=== PATIENT | male | born 1965 | race Caucasian/White ===

== ENCOUNTER 2016-04-29 11:54 | Inpatient (IN) | payer OTHER, MEDICARE ==
[~2016-04-29] VITALS: Ht 174 cm; Wt 181.4 kg
[~2016-04-29 11:54] MED LIST: ABILIFY MAINTE400 MG IM; ACIDOPHILUS1 EACH PO; AMBIEN10 M1 PO; ASPIRIN EC81 M1 PO; DEPAKOTE ER500 M1 PO; IBUPROFEN600 M1 PO; LISINOPRIL-HCT1 EAC2 PO; METFORMIN HCL750 M1 PO; PEPCID20 M1 PO; TOPAMAX100 M1 PO; VITAMIN D2000 UNIT PO; ZOLOFT100 M1 PO
--- NOTE | 2016-04-29 12:11 | NUR ---
Informed waiting has been performed.
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
--- NOTE | 2016-04-29 12:25 | NUR ---
SECURITY AT BEDSIDE FOR WANDING AND PT CHANGED INTO HOSPITAL GOWNS
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
--- NOTE | 2016-04-29 13:45 | NUR ---
DR ESCOBEDO AT BEDSIDE FOR EVAL
--- NOTE | 2016-04-29 14:51 | NUR ---
BLOOD DRAWN AND SENT TO THE LAB ([facility])
[2016-04-29 15:00] LABS: ABSOLUTE BASOPHIL COUNT 0 /CUMM (0.0-0.2); ABSOLUTE EOSINOPHIL COUNT 0.2 /CUMM (0.0-0.7); ABSOLUTE GRANULOCYTE CT 5.2 /CUMM (1.4-6.5); ABSOLUTE LYMPH COUNT 2.5 /CUMM (1.2-3.4); ABSOLUTE MONOCYTE COUNT 0.8 /CUMM (0.10-0.60); BASOPHIL % 0.6 % (0.0-2.0); EOSINOPHIL % 1.9 % (0-5); GRANULOCYTE % 59.6 % (42.2-75.2); HEMATOCRIT 41.7 % (42-52); MEAN CORPUSCULAR HGB 28.6 PG (27.0-31.0); MEAN PLATELET VOLUME 7.5 FL (7.4-10.4); PLATELET COUNT 205 /CUMM (130-400); RBC DISTRIBUTION WIDTH 14.4 % (11.5-14.5); RED BLOOD CELL CT 4.96 /CUMM (4.70-6.10); WHITE BLOOD CELL COUNT 8.7 /CUMM (4.8-10.8)
--- NOTE | 2016-04-29 15:00 | NUR ---
PT CALM AND COOPERATIVE IN ROOM 15. PT REPORTS HE IS STILL HEARING THE VOICES. ADVISED PT I CALLED AND ORDERED HIM A MEAL FROM DIETARY.
--- NOTE | 2016-04-29 15:40 | NUR ---
PT EATING LUNCH TRAY.
--- NOTE | 2016-04-29 16:25 | NUR ---
CRISIS AT BEDSIDE FOR EVAL
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
[2016-04-29 18:05] VITALS: BP 155/87
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
[2016-04-29 19:36] VITALS: BP 140/88
[2016-04-29] MEDS ORDERED: NYSTATIN15 G1 EXT (20:20)
[2016-04-29] MEDS ORDERED: LEVOTHYROXINE75 MCG PO (20:23)
[2016-04-29] MEDS ORDERED: FLOMAX0.4 M1 PO (20:26)
[2016-04-29] MEDS ORDERED: ABILIFY30 M1 PO (20:27)
[2016-04-29] MEDS ORDERED: METFORMIN HCL500 M2 PO (20:29)
[2016-04-29] MEDS ORDERED: DEPAKOTE ER500 M1 PO (20:30)
[2016-04-29] MEDS ORDERED: ZOLOFT100 M1 PO (20:32)
--- NOTE | 2016-04-29 21:46 | NUR ---
Pt mood is stable affect is flat, pt walks around the unit gait is stable. Compliant and cooperative with the staff. Vital signs are stable no behavioral issues noted. Will continue to monitor the pt overnight.
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
[2016-04-30 07:30] VITALS: BP 130/90
--- NOTE | 2016-04-30 09:27 | CPS MD/APRN INITIAL ASSE PSYCH ---
Psychiatric Admission Manager Of Disaster Recovery's Note Reviewed: Yes Patient Seen and Examined: Yes Identifying Information: Pt is a 51-year-old male, morbidly obese. Chief Complaint: Patient presented at [facility] with reports of hearing voices telling him to hurt/kill others. Reaction to Hospitalization: Calm and cooperative. He states he's feeling better since he arrived here. Feeling somewhat tired today. "I guess I like to sleep." History of Present Illness Onset of Illness: Chronic. This is the patient's 14th [facility] admission since 2000. Circumstances Leading to Admission: Patient presented at [facility] ED with reports of hearing voices telling him to hurt/kill others. Pt has a long hx of inpatient psychiatric treatment and has prior diagnosis of schizoaffective d/o. Pt was last inpatient at [facility] in Jan 2016 and [facility] August 2015. Pt reports he always hears voices but woke up this morning with voices telling him to hurt his field nurse case manager and visiting nurse. Pt reports voices were overwhelming "I thought I would actually do it". Pt reports similiar voices 2 weeks ago. He reports being scared that the thoughts are becoming an obsession "like I have to do it for them to stop-I'm very scared". Problem(s) Justifying Need for Admission: Suicidal and homicidal ideation, command auditory hallucinations. Past Psychiatric History Past Diagnosis(es)- if any: Schizoaffective Disorder; MRE Depressed with psychotic features (AH) Hypothyroidism; hx Type II Diabetes Morbid Obesity(400 lbs.) Past Precipitating Factors- if any: Patient reports hearing voices "constantly." Reports paranoia, especially when he rides on the bus. States "I feel that people are against me. I get angry at people for no reason." - Include inpatient and outpatient treatment Treatment History: This is the patient's th [facility] inpatient psychiatric stay since 2000. Hospitalizations at [facility] in the past. History of Suicide Attempts or Gestures Patient reports that he has tried to overdose on 1 bottle of aspirin, 3 times in his life. Last time was this past December, when he was hospitalized at [facility]. Substance Abuse History: Patient reports that when he was in his early 20s, he abused alcohol, cocaine, marijuana, and other drugs. Used LSD once. States he has been abstinent of alcohol and illicit drugs for the past 20 years. Allergies: Coded Allergies: bupropion (From WELLBUTRIN) (Severe, UNKNOWN PER PT 04/29/16) haloperidol (From HALDOL) (UNKNOWN PER PT 04/29/16) lithium (?ALLERGY 04/29/16) Home Med List: Abilify 30 mg daily. Depakote ER 2000 mg at bedtime. Tamsulosin 0.4 mg daily Sertraline 200 mg daily Metformin 500 mg twice daily Levothyroxine 0.075 mg daily Vitamin D 2000 international units daily Aspirin 81 mg daily Pepcid 20 mg twice daily - Include any medical condition(s) that may - impact the patient's recovery/remission Past History Medical History Neurological: migraine EENT: NO TEETH, NO DENTURES Cardiovascular: hypertension Respiratory: NONE Gastrointestinal: NONE Hepatic: NONE Renal: NONE Musculoskeletal: ARTHRITIS HEEL SPUR Psychiatric: anxiety, chronic pain disorder, depression, psychosis (command auditory hallucination), schizo affective disorder Endocrine: PRE-DIABETIC (on oral hypoglycemic regimen) Blood Disorders: NONE Cancer(s): NONE FRENCH LECTURER/Reproductive: NONE Other Medical Hx: no History of MRSA: No History of VRE: No History of CDIFF: No Influenza Vaccine: 04/29/16 Surgical History Surgical History: none Psychiatric Family/Social Hx Family History Psychiatric Illness: He has 3 brothers and 2 sisters, states they all suffer from depression. Substance Use: Denies Suicides: Denies Social History Living Situation: Lives in a fdc in [facility] Significant Relationships (family/friends): His sister, Fabiana Queen and his brother Angel. Both live in [place]. Education: GED. 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 Currently unemployed. Legal: Denies Healthly Behaviors Screening Tobacco Screening Tobacco Use from ED Docu: Never used - If tobacco counseling indicated - the following topics are required. - #1 Recognizing dangerous situations. - #2 Coping Skills. - #3 Basic information about quitting. Status of Tobacco Cessation Counseling: N/A B/C NO TOB USE Cessation Med Status: No Tobacco Use last 30d Alcohol Screening - ETOH screen POS if BAL >=80 or Audit-C>= M4/F3 Audit-C Score from Diag Assess: 0 Blood Alcohol Level: Laboratory Tests 04/29 1449 Toxicology Serum Alcohol (<10 MG/DL) < 10.0 Alcohol Use Screening Results: Neg per Audit C &/or BAL - If ETOH counseling indicated - the following topics are required. - #1 Express concern about the patient's - drinking at unhealthy levels, include informing - of national norms for moderate drinking: - men <= 14 drinks/week, max 4 drinks/occasion - women <= 7 drinks/week, max 3 drinks/occasion - #2 Providing feedback, including linking alcohol to - negative physical effects (liver injury, hypertension) - negative emotional effects (relationship problems and - depression) - negative occupational consequences (reduced work - performance) - #3 Advising the patient to abstain from alcohol or - to drink below national norms for moderate drinking - (as listed above). Status of ETOH Use Counseling: N/A B/C NO ETOH Use Metabolic Screening - Screen if on a Neuroleptic Medication - Metabolic screening should include: - Blood Pressure, BMI, Glucose or Hgb A1c, & a - Lipid profile from within the past 365 days. Metabolic Screening () Not Applicable, patient not on a neuroleptic. OR ([x]) Patient on a neuroleptic(s) . Enter below results for Glucose or Hemoglobin A1C, and lipid panel if obtained during the last 365 days. BMI: 59.900 Blood Pressure: 132/92 Laboratory Results (If applicable): Lab Cholesterol 197 MG/DL 04/30/16 0626 Cholesterol/HDL Ratio 4 % 04/30/16 06 HDL Cholesterol 54 mg/dL 04/30/16 0626 Hemoglobin A1c 7.3 % H 04/30/16 06 LDL Cholesterol, Calc 88 mg/dL 04/30/16 06 Triglycerides 276 mg/dL H 04/30/16 06 Exam and Plan Mental Status Examination Ambulation Status: Patient ambulates slowly, with a steady gait. Appearance: Morbidly obese. Well-groomed and appropriately dressed. Attitude towards examiner: Calm and cooperative Psychomotor activity: Within normal limits Behavior: Calm and cooperative Quality of speech: Speech is well articulated, goal-directed, average in rate, quiet in volume and tone. Affect: Congruent Mood: Depressed Suicidal Ideation: Denies at this time. Homicidal Ideation: Denies at this time, however was hearing voices telling him to kill or hurt others, which is the reason he brought himself to the hospital. Hallucinations: Patient reports command auditory hallucinations. Paranoid/Delusional Material: Patient reports paranoid thoughts, at times feeling that people are against him, he then gets angry at people for no reason. Difficulties with thought organization: Patient speaks in a clear and logical manner. Insight: Fair Judgment: Fair Orientation: Alert and oriented to person, place and time. Cognition: Within normal limits Memory Function: Within normal limits Estimate of intellectual functioning: Average Assets/Strengths Patient Identified Assets/Strengths: Patient reports that he is spiritual, generous, loving and caring. "I like to listen to other people." Impression/Plan Impression and Plan: This is a 51-year-old morbidly obese male, with an extensive psychiatric history , being seen outpatient at [facility], currently living in a supervised fdc. He has had numerous inpatient psychiatric stays both here and at other hospitals. He reports command auditory hallucinations, telling him to harm or even kill other people. He also reports occasional suicidal ideation, and has had at least 3 suicide attempts in the past. During our visit today he was calm, cooperative and pleasant. At this time due to his continuing command auditory hallucinations, we will discontinue Abilify, as it seems that it is no longer helpful for his psychotic symptoms. We will start perphenazine 8 mg twice daily. Patient verbalized consent, and verbalizes understanding of the risks, benefits and side effects of this medication including akathisia, possible dystonic reactions including irreversible involuntary muscle movements. Depakote level on Thursday morning. Also add Cogentin 1mg BID. - Include all active medical diagnosis that require tx DSM 5 Diagnosis(es): Schizoaffective Disorder; MRE Depressed with psychotic features (AH) - Initial Tx Plan for Active Psych & Medical Conditions Treatment Plan: PLAN: The patient will be monitored on the unit for safety, mood stability, command auditory hallucinations, suicidal and homicidal ideation. Additional information is needed from collaterals, including his brother and sister. Anticipate once clinically stable, that the patient will be discharged to home and family and be referred to [facility]. - Factors that would help patient function - in a less restrictive setting. Factors: Resolution of suicidal and homicidal ideation, alleviation of auditory hallucinations.
--- NOTE | 2016-04-30 10:25 | SOCIAL WORKER SOCIAL HX PSYCH ---
Social History Basic Assessment Insurance Authorization: Insurance #1: Insurance name: MEDICARE A [employer] Phone number: Policy number: [id number] Group number: Authorization number: Curr Source of Income/Entitlements: SSDI Primary Care Physician: Patient's PCP: TEMITOPE PATINO MD PCP's Present Problem: Met with Chon this morning, he was in group this morning, and willingly came with me to talk further. Chon is a 51yo single, disabled male admitted to [facility] due to hearing voices to harm 2 women. Chon denied hearing any voices today, no visual hallucinations, denied SI/HI, command hallucinations. He stated he heard the voice the other day, as he was waking up in the morning telling him to harm 2 women he knows. He stated he did not want to harm the women, so he came to [place]. Chon stated "I don't want to tell you who these women were, then you will have to inform them." Chon affect was flat he seemed to engage easily. He reports having 48 psychiatric hospitalizations in his lifetime. He stated he lives in a senior living setting, and is fine living there. He stated "I'm used to it." He did not identify any recent stressors or conflicts contributing to his exacerbation of symptoms. Chon did report he had an opportunity to move into another living situation, but recently decided not to move. He was going to move into "[facility]" in [place], [place] a "born again holiness" facility for men. Chon stated his therapist and he went to visit the facility and he liked it, but had misgivings about it because the facility/program is Roman Catholic based. Chon stated he is currently Jainism, but has been other religions too. Chon stated his spirituality "helps me alot", and that he "reads alot of books." His supports are his sister, Fabiana Queen (lives in [place]), his 77yo Father (who Chon stated is currently at [place] on medical floor), and his 2 male friends. Chon recieves therapy at [facility] - with Dr. Hector and therapist, Taylor Peterson, [facility] , or [phone]. His case filler for his current housing [facility] [place]. Also, he receives visiting nurse services with [facility]. Primary Language? Citizen [place] Language(s) Spoken At Home: Citizen [place] Living Situation Rents or Owns Home? rents Residential Care/Treatment Fac senior living Feel Safe Where You Are Living Yes Feel Safe in Relationships? Yes Comments: Pt. did have toughts of harming 2 women - would not disclose their names. PEr ED note it is case filler and visiting nurse. Allergies - Coded Allergies: bupropion (From WELLBUTRIN) (Severe, UNKNOWN PER PT 04/29/16) haloperidol (From HALDOL) (UNKNOWN PER PT 04/29/16) lithium (?ALLERGY 04/29/16) Current Medications - Scheduled Medications Aripiprazole (Abilify) 30 MG TABLET 30 MG PO DAILY ANTI-PSYCHOTIC (Reported) Entered as Reported by OLGA COMBS on 04/29/162026 Aspirin (Ecotrin*) 81 MG TABLET.DR 1 TAB PO DAILY HEART/BLOOD (Reported) Entered as Reported by MARGARET MENA on 06/19/151738 Last Taken: 04/29/16 Cholecalciferol (Vitamin D3) (Vitamin D) 2,000 UNIT CAPSULE 1 CAP PO DAILY SUPPLEMENT (Reported) Entered as Reported by MARGARET MENA on 06/19/151741 Last Taken: 04/29/16 Divalproex Sodium (Depakote ER) 500 MG TAB.ER.24H 2,000 MG PO PM MOOD STABILITY (Reported) Entered as Reported by OLGA COMBS on 04/29/162029 Famotidine (Pepcid) 20 MG TABLET 1 TAB PO BID GI (Reported) Entered as Reported by MARGARET MENA on 06/19/151739 Last Taken: 04/29/16 Lactobacillus Acidophilus (Acidophilus) 1 EACH CAPSULE 1 CAP PO DAILY PROBIOTIC (Reported) Entered as Reported by MARGARET MENA on 06/19/151742 Last Taken: 04/29/16 Levothyroxine Sodium 75 MCG TABLET 75 MCG PO DAILY THYROID PROBLEMS (Reported ) Entered as Reported by OLGA COMBS on 04/29/162022 Lisinopril/Hydrochlorothiazide (Lisinopril-Hctz 10-12.5 MG Tab) 1 EACH TABLET 1 TAB PO DAILY BP (Reported) Entered as Reported by MARGARET MENA on 06/19/15 1741 Last Taken: Unknown Dose on 04/29/16 Nystatin 100,000 UNIT/GRAM CREAM..G. 100,000 GM EXT BID FUNGAL RASH (Reported ) Entered as Reported by OLGA COMBS on 04/29/162019 Sertraline HCl (Zoloft) 100 MG TABLET 200 MG PO DAILY DEPRESSION (Reported) Entered as Reported by OLGA COMBS on 04/29/162031 Tamsulosin HCl (Flomax) 0.4 MG CAP.ER.24H 0.4 MG PO DAILY MUSCLE RELAXANT ( Reported) Entered as Reported by OLGA COMBS on 04/29/162025 Scheduled PRN Medications Metformin HCl (Metformin HCl ER) 500 MG TAB.ER.24 500 MG PO BID PRN BLOOD SUGAR (Reported) Entered as Reported by OLGA COMBS on 04/29/162028 Past History Past Medical History Neurological: migraine EENT: NO TEETH, NO DENTURES Cardiovascular: hypertension Respiratory: NONE Gastrointestinal: NONE Hepatic: NONE Renal: NONE Musculoskeletal: ARTHRITIS HEEL SPUR Psychiatric: anxiety, chronic pain disorder, depression, psychosis (command auditory hallucination), schizo affective disorder Endocrine: PRE-DIABETIC (on oral hypoglycemic regimen) Blood Disorders: NONE Cancer(s): NONE 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 No Mother's Age (Current/): 57 Relationship w/Mother: Mother 57yo in 2000 from multiple surgeries hernia, had infection. Had good relationship with Mother. Father's Age (Current/): 77 Relationship w/Father: Father is 77yo, close with Father. Any Sibling(s)? Yes Sibling's Gender(s)/Age(s): male Sibling 1:, male Sibling 2:, male Sibling 3:, female Sibling 4: Relationship w/Sibling(s): Reports close with siblings, sister lives in [place] talk to her on the phone daily (Fabiana Queen) Relationship w/Friends: Has 2 good friends, Adam and Orlando. Supportive latter day community Family Psych/Sub Abuse/Add Hx: None reported Abuse/Trauma History Trauma History/Current Trauma: Denies Legal History Legal Guardian/Address/Phone: Self Current Legal Status: none Have you ever been arrested No Number of Arrests: 0 Hx of Juvenile Legal Charges? Yes Hx of Adult Legal Charges? Yes List/Date Most Recent Lgl Chgs: 1990s - destruction of property Chgs/Dts/Incarcerations/Sentnc Denies Civil Proceedings: Denies Domestic Relations Court: Denies Child Protective Serv Involvmnt Denies Psychosocial History Primary Support System: father, sibling(s), friend Strengths/Capabilities: Supportive family Able to articulate needs/wants Asking for help Connected to outpatient treatment Weaknesses: Reported hearing command auditory hallucinations, chronic medical, chronic mental illness. Physical Limitations (Interventions): Morbid obesity Last Physical: 2 months ago History of Seizures? No History of Blackouts? No ADL Limitations: Reported 'i eat too much, I fall asleep eating at night." Liberty/Social/Peer Relations Supportive family and latter day community Meaningful Activities: Music, family, latter day Childhood Rastafarian: I am a spiritual person I believe in God, recently Baptised Jainism, has been various religions. Current Muslim Affiliation: Jainism Is Spirituality Important to You? Yes Patient's Ethnicity: Pashto Cultural/Ethnic Issues: Denies Are There Developmental Issues? No Milestones Achieved: fine motor, gross motor Psychiatric Treatment History Psych Treatment Inpatient Treatment Yes Outpatient Treatment Yes Location of Treatment [facility] x2 past yr; [facility] 2x past yr. outpt [facility] Reason for Treatment Schizophrenia Hx of SI/HI Dates of Treatment chronic mental jean tx. Several [facility] admissions since 2000. Response to Treatment chronic AH but is med compliant and engaged in outpatient tx. 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[facility] Prior Episodes: See above Diagnosis: Schizoaffective d/o, depressed type Psychodynamic Issues: Chronic mental illness, medical issues, auditory command hallucinations Risk Factors: chronic/serious med cond., high anxiety/distress, history of Violence, history of suicide atmpts, SA/MH hospitalized, poor impulse control, male Substance Use/Abuse History Drug Use/Abuse Substance Used/Abused No History Substance Abuse Treatment Substance Abuse Treatment Inpatient Treatment No Sexual History Sexually Active No Sexual Orientation Bisexual Education History Highest Level of Education: high school/GED Highest Grade Completed: 12 Preferred Learning Style: visual, auditory, experiential HX of Learning Difficulties: None reported Barriers to Learning: None reported Special Communication Needs: None reported Employment History Employment Disability Not in Labor Force: Disabled Comments: Disabled since 1998 History Have You Been in The ? No Current Mental Status Problem List: 1. Schizoaffective disorder Mental Status Orientation: Person, Place, Situation Affect: Anxious, Flat Speech: WNL Neuro-vegetative: Concentration Poor, Energy Decreased, Sleep Disturbance Appearance Appearance- Dress/Hygiene: hospital gown; sitting up in bed with feet on the floor. flat affect. good eye contact. Behaviors Thought Process: WNL Thought Content: Auditory Hallucinations, Delusions, Obsessions, Paranoid Memory: WNL Insight: Fair SI/HI Risk Assessment Past Suicidal Ideation/Attempts Yes Current Suicidal Ideation/Att No Past Homicidal Ideation/Att: Yes Current Homicidal Ideation/Attempts Yes Degree of Intent: Thoughts/No Intent Danger To: Others, Self Gravely Disabled: Poor Impulse Control, Poor Judgment Risk Factors: Chronic/serious med cond, High Anxiety/Distress, SA/MH Hospitalization(s), Male Lethality Ratin - Conclusion and Recommendations for treatment - and discharge planning
[2016-04-30 12:31] VITALS: BP 132/92
--- NOTE | 2016-04-30 12:42 | NUR ---
PT VISIBLE IN THE [facility]LEU TODAY. HE SEEMS TO BE ADJUSTING WELL TO THE MILEU, FOLLOWING THE RULES OF THE UNIT. IN THE MILIEU PT HAS BEEN ATTENDING GROUPS, BUT HAS MINIMAL INTERACTIONS WITH HIS PEERS. PT DENIES THOUGHTS TO HURT HIMSELF WHEN ASKED.
--- NOTE | 2016-04-30 15:48 | History & Physical ---
General Information and HPI MD Statement: I have seen and personally examined DORY ANDREA and documented this H&P. The patient is a 51 year old M who presented with a patient stated chief complaint of "hearing voices, that may kill someone". Source of Information: patient Exam Limitations: no limitations History of Present Illness: 51-year-old obese male with history of schizoaffective disorder, last admission to a Hospital Was in January 2016 he was still here in the voices all of a sudden the night before admission the voices started to having him to hurt this woman for keeled them. That scares him and he is afraid but he might do. He states he is taking on his medication for all these reasons is admitted for evaluation and treatment Allergies/Medications Allergies: Coded Allergies: bupropion (From WELLBUTRIN) (Severe, UNKNOWN PER PT 04/29/16) haloperidol (From HALDOL) (UNKNOWN PER PT 04/29/16) lithium (?ALLERGY 04/29/16) Home Med list Aripiprazole (Abilify) 30 MG TABLET 30 MG PO DAILY ANTI-PSYCHOTIC (Reported) Aspirin (Ecotrin*) 81 MG TABLET.DR 1 TAB PO DAILY HEART/BLOOD (Reported) Cholecalciferol (Vitamin D3) (Vitamin D) 2,000 UNIT CAPSULE 1 CAP PO DAILY SUPPLEMENT (Reported) Divalproex Sodium (Depakote ER) 500 MG TAB.ER.24H 2,000 MG PO PM MOOD STABILITY (Reported) Famotidine (Pepcid) 20 MG TABLET 1 TAB PO BID GI (Reported) Lactobacillus Acidophilus (Acidophilus) 1 EACH CAPSULE 1 CAP PO DAILY PROBIOTIC (Reported) Levothyroxine Sodium 75 MCG TABLET 75 MCG PO DAILY THYROID PROBLEMS (Reported ) Lisinopril/Hydrochlorothiazide (Lisinopril-Hctz 10-12.5 MG Tab) 1 EACH TABLET 1 TAB PO DAILY BP (Reported) Metformin HCl (Metformin HCl ER) 500 MG TAB.ER.24 500 MG PO BID PRN BLOOD SUGAR (Reported) Nystatin 100,000 UNIT/GRAM CREAM..G. 100,000 GM EXT BID FUNGAL RASH (Reported ) Sertraline HCl (Zoloft) 100 MG TABLET 200 MG PO DAILY DEPRESSION (Reported) Tamsulosin HCl (Flomax) 0.4 MG CAP.ER.24H 0.4 MG PO DAILY MUSCLE RELAXANT ( Reported) Compliance With Home Meds: GOOD Past History Travel History Traveled to [place] past 21 day No Medical History Neurological: migraine EENT: NO TEETH, NO DENTURES Cardiovascular: hypertension Respiratory: NONE Gastrointestinal: NONE Hepatic: NONE Renal: NONE Musculoskeletal: ARTHRITIS HEEL SPUR Psychiatric: anxiety, chronic pain disorder, depression, psychosis (command auditory hallucination), schizo affective disorder Endocrine: PRE-DIABETIC (on oral hypoglycemic regimen) Blood Disorders: NONE Cancer(s): NONE 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 Home Primary Language: Korean ETOH Use: denies use Illicit Drug Use: denies illicit drug use Functional Ability ADLs Independent: dressing, eating, toileting, bathing. Ambulation: independent IADLs Independent: shopping, housework, finances, food prep, telephone, transportation , medication admin. Review of Systems Review of Systems Constitutional: Reports: see HPI. Exam & Diagnostic Data Last 24 Hrs of Vital Signs/I&O Vital Signs Date Time Temp Pulse Resp B/P Pulse O2 O2 Flow FiO2 Ox Delivery Rate 04/30 1231 92 132/92 04/30 0812 82 130/90 04/30 0730 96.4 82 130/90 04/29 1936 97.8 72 140/88 04/29 1805 96.3 86 155/87 04/29 1734 98.2 90 16 154/84 98 Room Air Intake & Output 04/30 1600 04/30 0800 04/30 0000 Intake Total Output Total Balance Patient 400 lb Weight Physical Exam General Appearance Alert, Oriented X3, Cooperative, No Acute Distress Skin No Rashes HEENT Atraumatic, PERRLA, EOMI, Mucous Membr. moist/pink Neck Supple, No JVD, No thryomegaly, +2 Carotid Pulse wo Bruit, No LAD Lymphatic Axillary nl, Cervical nl Cardiovascular Regular Rate Lungs decreased breath sounds Abdomen Normal Bowel Sounds, Soft, No Tenderness, obese Neurological Exam Findings: walking much better than on his last admission Cranial Nerves II through XII: Intact Last 24 Hrs of Labs/Oscar: Laboratory Tests 04/30/16 0626: Hemoglobin A1c 7.3 H, Total Bilirubin 0.4, Direct Bilirubin 0.4, AST 34, ALT 50 , Alkaline Phosphatase 84, Total Protein 7.2, Albumin 4.1, Triglycerides 276 H, Cholesterol 197, LDL Cholesterol, Calc 88, HDL Cholesterol 54, Cholesterol/HDL Ratio 4, Valproic Acid 44.1 L Assessment/Plan As Ranked By This Provider Problem List: 1. Suicidal ideation 2. Schizophrenia 3. Diabetes Miscellaneous Miscellaneous Documentation Attending Case Discussed With: BERTHA KERNS MD Primary Care Physician: TEMITOPE PATINO MD Patient sees these Specialists Psychiatry Level of Patient Care: ANUEL López Consults Needed: Consulting Specialty: Psychiatry Consulting Physician: Reason for Consult: suicidal ideations and auditory hallucinations
[2016-04-30 16:02] VITALS: BP 142/86
--- NOTE | 2016-04-30 17:11 | SOCIAL WORKER PROG NOTE PSYCH ---
Social Work Progress Note Progress Note Met with Chon this morning, he was in group this morning, and willingly came with me to talk further. Chon is a 51yo single, disabled male admitted to [facility] due to hearing voices to harm 2 women. Chon denied hearing any voices today, no visual hallucinations, denied SI/HI, command hallucinations. He stated he heard the voice the other day, as he was waking up in the morning telling him to harm 2 women he knows. He stated he did not want to harm the women, so he came to [place]. Chon stated "I don't want to tell you who these women were, then you will have to inform them." Chon affect was flat he seemed to engage easily. He reports having 48 psychiatric hospitalizations in his lifetime. He stated he lives in a half-way setting, and is fine living there. He stated "I'm used to it." He did not identify any recent stressors or conflicts contributing to his exacerbation of symptoms. Chon did report he had an opportunity to move into another living situation, but recently decided not to move. He was going to move into "[facility]" in [place], [place] a "born again moravian" facility for men. Chon stated his therapist and he went to visit the facility and he liked it, but had misgivings about it because the facility/program is Mandaen based. Chon stated he is currently Mandaen, but has been other religions too. Chon stated his spirituality "helps me alot", and that he "reads alot of books." His supports are his sister, Fabiana Queen (lives in [place]), his 77yo Father (who Chon stated is currently at [place] on medical floor), and his 2 male friends. Chon recieves therapy at [facility] - with Dr. Hector and therapist, Taylor Peterson, [facility] , or [phone]. His case supervisor for his current housing is [facility]. Also, he receives visiting nurse services with [facility].
[2016-04-30 19:43] VITALS: BP 142/90
--- NOTE | 2016-04-30 21:33 | NUR ---
PT APPEARED VISIBLE IN MILIEU DURING SHIFT, THOUGH DID SPEND A DECENT PERIOD OF TIME ISOLATING IN PT ROOM. PT IS WOTHDRAWN, MOSTLY STAYING TO SELF, WITH LIMITED INTERACTION WITH STAFF/PEERS. EARLIER IN EVENING PT BECAME DISGRUNTLED, BELIEVING STAFF NOT TO BE LOOKING OUT FOR HIS BEST INTERESTS AND BLAMING STAFF FOR ATTEMPTING TO ANGER HIM. PT WAS CONFRONTED BY SECURITY AND CHARGE NURSE, GIVEN A PRN, WHICH SEEMED TO CALM HIM. FOLLOWING THIS EVENT PT APPEARED MORE CALM AND COOPERATIVE WITH STAFF/PEERS. PT PRESENTS WITH WHAT APPEARS TO BE DELUSIONAL THINKING, AND BECOMES HIGHLY ANXIOUS DUE TO THOUGHTS. MOOD HAS BEEN STABLE, AFFECT IS FLAT/CONSTRICTED, COMMUNICATION IS NORMAL THOUGH SPARSE, AND APPETITE IS NORMAL. PT DENIES SI AT THIS TIME.
--- NOTE | 2016-05-01 06:50 | NUR ---
PATIENT SLEPT ALL NIGHT.
[2016-05-01 08:46] VITALS: BP 146/94
--- NOTE | 2016-05-01 12:54 | NUR ---
PT WAS VISIBLE IN THE MILIEU TODAY. PT SHARED IN PLANNING MEETING THAT HE WAS FEELING SAD AND ANXIOUS BUT DID NOT GO INTO DETAIL. HE WAS ENCOURAGED TO ATTEND GROUPS, WHICH HE HAS BEEN DOING. PT HAS MINIMAL INTERACTIONS WITH HIS PEERS BUT HAS BEEN COOPERATIVE WITH STAFF DIRECTION. WHEN ASKED PT DENIES THOUGHTS OF HURTING SELF.
--- NOTE | 2016-05-01 13:43 | CP SOUTH PROGRESS NOTE PSYCH ---
Psych (Inpt) Progress Note Progress Note Progress Note: I discussed this patient's progress to date, current mental status, treatment process in the context of the treatment plan, and discharge planning with staff/ team in the daily morning inpatient team meeting. I also met with the patient myself in individual session. A total of 15 minutes was spent with the patient with more than 50% spent in counseling and/or coordination of care. OBJECTIVE: Current Medications Sig/Pramod Start time Last Medication Dose Route Stop Time Status Admin Aripiprazole 30 MG DAILY 04/30 1000 DC 04/30 PO 0812 Aspirin Buffered 81 MG DAILY 04/30 1000 AC 05/01 PO 0955 Benztropine Mesylate 1 MG 08,04/30 AC 05/01 PO 0955 Cholecalciferol 2,000 IU DAILY 04/30 1000 AC 05/01 PO 0955 Diphenhydramine HCl 50 MG ONCE ONE 04/30 1630 DC 04/30 PO 04/30 1631 1630 Divalproex Sodium 2,000 MG QPM 04/29 2315 AC 04/30 PO 2125 Famotidine 20 MG BID 04/29 2311 AC 05/01 PO 0955 Haloperidol 5 MG ONCE ONE 04/30 1630 CAN PO 04/30 1631 Lactobacillus 1 CAP DAILY 04/30 1000 AC 05/01 Acidophilus PO 0955 Levothyroxine Sodium 0.075 MG DAILY AC 04/30 0700 AC 05/01 PO 0709 Lorazepam 2 MG ONCE ONE 04/30 1630 DC 04/30 PO 04/30 1631 1630 Metformin HCl 500 MG 0800,1700 04/30 0800 AC 05/01 PO 0955 Nystatin 1 BRIDGETT BID 04/30 1000 AC TOP Perphenazine 8 MG 0800 05/02 0800 AC PO Perphenazine 16 MG AT BEDTIME 05/01 2200 AC PO Perphenazine 12 MG 08,05/01 2000 CAN PO Perphenazine 4 MG ONCE ONE 05/01 1045 CAN PO 05/01 1046 Perphenazine 8 MG 0800,04/30 DC 05/01 PO 0955 Sertraline HCl 200 MG DAILY 04/30 1000 AC 05/01 PO 0955 Tamsulosin HCl 0.4 MG DAILY 04/30 1000 AC 05/01 PO 0955 Vital Signs Date Time Temp Pulse Resp B/P Pulse O2 O2 Flow FiO2 Ox Delivery Rate 03/02 0955 97.3 96 16 146/94 03/ 0846 97.3 96 146/94 03 1943 97.3 89 142/90 04/30 1602 73 142/86 ASSESSMENT: Today I met the patient along with public health social worker Lucinda. Patient reports continuing auditory hallucinations. Continuing suicidal ideation, and continuing homicidal ideation centered on 3 members of his care team. States that he has no plan or intention to harm these people, and he finds the voices to be very troubling. He also reports continuing depression and anxiety. Reports tolerating his medications well. Yesterday evening, as per nursing report, he had an angry episode when he had to wait his turn to place his food services order. In addition to being loud, he was throwing items around the room. Patient was medicated with PO Ativan and Benadryl at that time, for both his safety and the safety of others. He quickly calmed down after that, and has not had another similar episode since. States that he slept well last night. Patient also napped during at least part of the morning. States that he sleeps a lot at home, often also sleeping during parts of the day. Speech is well articulated, goal-directed, average in rate, quiet in volume and tone. Patient is very calm during our meeting today. Alert and oriented 3. The patient understands the risks/benefits/side effects of the medication and is agreeable to continue taking them. PLAN: Trilafon 8 mg in the morning and 16 mg at bedtime for continuing psychotic symptoms. Continue with other current management as patient is improving. Continue to provide support and encouragement.
--- NOTE | 2016-05-01 15:08 | SOCIAL WORKER PROG NOTE PSYCH ---
Social Work Progress Note Progress Note Patient continues to endorse +SI/HI/AH today. Patient reports that prior to hospitalization he was hearing a voice telling him to harm 3 specific people in his life. Patient shared that he has had negative thoughts/feelings towards one of these individuals for awhile now but the other 2 individuals he has not felt negatively towards. Patient reports that he almost started to believe the voice and was considering acting on these thoughts. Patient reports that he came to the hospital in order to prevent himself from acting on the voices. Patient identified the three individuals as his VNS, his old family independence case manager, and his lifecoach. Patient reports that currently he has no intent to hurt them but still has had passing thoughts when he hears voices telling him to do so. Patient reports that he has no intent or plan to hurt himself at present but rather that he just wishes he would . He spoke briefly about considering moving to a year long program up in [place], [place] that he has discussed with his clinician at [facility]. Patient reports hesitency due to their rastafari philosophy and it possibly contradicting his views. I attempted to reach out to patients clinician, Taylor, to discuss his recent treatment/progress and am waiting for call back.
--- NOTE | 2016-05-01 15:09 | SOCIAL WORKER TX PLAN PSYCH ---
Treatment Plan - Please Document: - Evidence that there is ongoing collaboration between - the patient and the interdisciplinary team, - including the patient's active participation and - responsibility for engaging in the treatment regimen, - and that the treatment plan is individualized and - relevant to the patient's conditions. - Treatment plan should reflect documentation indicating - that all active therapeutic efforts are included. Strengths/Capabilities: Supportive family Able to articulate needs/wants Asking for help Connected to outpatient treatment Physical Limitations (Interventions): Morbid obesity Patient Identified Trmt Goals: "I don't want to have these thoughts." Discharge Plan: [facility] Problem/Goals #1 Problem #1: homicidal ideation Goal (Short Term): Today I will attend 2 groups Today I will identify 2 stressors Today I will identify 2 positive supports Today I will work on recognizing 3 emotions I am feeling Goal (Nursing Home): Be free of homicidal/suicidal thoughts/attempts Develop 3 coping skills to deal with depression Identify 3 positive support systems to call in crisis Develop a crisis plan with 3 [place] people Identify 2 positive traits per week about myself Identify 2 things I have to look forward to Identify 2 positive people in my life and 1 thing I appreciate about them Interventions: Learn ways to manage depressive symptoms accordingly and identify positive supports to manage life stressors and mood fluctuations. Modalities: Encourage groups, education on depression, provide CBT treatment, family meeting. DSM5/PS Stressors/Medical Prob Diagnosis' (DSM 5, Stressors, Medical): Schizoaffective D/O depressive type (F25.1) father is in hospital worrying about move to new residential program hypothyroidism type II diabetis Current GAF: 25 Treatment Team - Responsibilities of members of the treatment team include: - Medication Management- MD or ARC AND GAS WELDER - Medication Administration and Monitoring- Nurse - Group Therapy- Occupational Therapist - 1:1 Therapy,Disch Planning,family involvement-Hardboard Coating Machine Operator
[2016-05-01 15:54] VITALS: BP 142/90
[2016-05-01 16:11] VITALS: BP 142/90
[2016-05-01 19:44] VITALS: BP 151/95
--- NOTE | 2016-05-01 21:30 | NUR ---
PT IS ISOLATIVE AND WITHDRAWN, SPENDING THE MAJORITY OF THE TIME SLEEPING IN PT ROOM. COOPERATIVE WITH STAFF AND PEERS AND COMPLIANT THE MAJORITY OF THE TIME WITH UNIT RULES. MOOD IS STABLE, AFFECT IS FLAT/CONSTRICTED, COMMUNICATION IS NORMAL, AND APPETITE IS NORMAL. PT DENIES SI AT THIS TIME.
[2016-05-02 07:36] VITALS: BP 151/88
--- NOTE | 2016-05-02 11:57 | SOCIAL WORKER PROG NOTE PSYCH ---
Social Work Progress Note Progress Note Patient presents today with somewhat brighter mood and affect continues to be flat. Patient denies SI/HI/AH/VH today. Patient reports that he would like his sister, Fabiana, to come in for a family meeting. I reached out and left Fabiana a voicemail asking if she would be available to come meet. I am waiting for call back. I spoke with patients outpatient BOILER HOUSE OPERATOR at [facility], Taylor, today and informed her of patients admission to the hospital and what prompted this admission. She shared that she was not surprised to hear patient had made his way to on his own without ambulance assistance since he tends to prefer our services compared to others. She rescheduled appointments with herself and Dr. Hector and is going to reschedule them for later next week and call me back with the dates/times.
--- NOTE | 2016-05-02 12:16 | CP SOUTH PROGRESS NOTE PSYCH ---
Psych (Inpt) Progress Note Progress Note Progress Note: I discussed this patient's progress to date, current mental status, treatment process in the context of the treatment plan, and discharge planning with staff/ team in the daily morning inpatient team meeting. I also met with the patient myself in individual session. A total of 15 minutes was spent with the patient with more than 50% spent in counseling and/or coordination of care. SUBJECTIVE: "I still have mind chatter." OBJECTIVE: Current Medications Sig/Pramod Start time Last Medication Dose Route Stop Time Status Admin Aspirin Buffered 81 MG DAILY 04/30 1000 AC 05/02 PO 0938 Benztropine Mesylate 1 MG 0800,04/30 2000 AC 05/02 PO 0939 Cholecalciferol 2,000 IU DAILY 04/30 1000 AC 05/02 PO 0938 Divalproex Sodium 2,000 MG QPM 04/29 2315 AC 05/01 PO 2302 Famotidine 20 MG BID 04/29 2311 AC 05/02 PO 0938 Lactobacillus 1 CAP DAILY 04/30 1000 AC 05/02 Acidophilus PO 0938 Levothyroxine Sodium 0.075 MG DAILY AC 04/30 0700 AC 05/02 PO 0720 Metformin HCl 500 MG 0800,1700 04/30 0800 AC 05/02 PO 1607 Nystatin 1 BRIDGETT BID 04/30 1000 AC 05/02 TOP 0940 Perphenazine 24 MG AT BEDTIME 05/02 2200 UNVr PO Perphenazine 8 MG 0800 05/02 0800 AC 05/02 PO 0939 Perphenazine 16 MG AT BEDTIME 05/01 2200 DC 05/01 PO 2302 Sertraline HCl 200 MG DAILY 04/30 1000 AC 05/02 PO 0939 Tamsulosin HCl 0.4 MG DAILY 04/30 1000 AC 05/02 PO 0939 Laboratory Tests 05/02 0722 Toxicology Valproic Acid (50 - 120 ug/mL) 81.2 Vital Signs Date Time Temp Pulse Resp B/P Pulse O2 O2 Flow FiO2 Ox Delivery Rate 05/02 938 96.2 88 16 151/88 05/02 0736 96.2 88 151/88 05/01 1944 97.0 96 151/95 03/ 1611 91 142/90 03 1554 91 142/90 ASSESSMENT: Patient presents as quiet, calm and cooperative today. States that he is still hearing voices, however there are no longer telling him to hurt anyone. States he is no longer having suicidal thoughts. And he feels somewhat relieved. He reports tolerating his medications well, without complaint. Reports some dry mouth, patient primarily drinks milk and juice during the day. Patient verbalized understanding that water may be more helpful, and better for his general health. He has been reading the Book of [employer], states that he was recently baptized into the [employer]. I have placed a call this morning to the patient's psychiatrist, Dr Jimenez Hector at [facility], and left a message. Depression:0/10; Anxiety:0/10 (with 10 the worst.) Denies suicidal ideation, homicidal ideation, visual hallucinations. Auditory hallucination continue, at times command in nature. Speech is well articulated, goal-directed, slow in rate, quiet in volume and tone. The patient understands the risks/benefits/side effects of the medication and is agreeable to continue taking them. PLAN: Slow progress. Trilafon 24mg at bedtime, 8mg in the morning. Continue with current management as patient is improving. Continue to provide support and encouragement.
[2016-05-02 12:27] VITALS: BP 141/98
--- NOTE | 2016-05-02 14:10 | NUR ---
PT IS COMPLIANT AND COOPERATIVE. MOOD IS STABLE WITH A FLAT AFFECT. PT DENIES SI AT THIS TIME, NO COMPLAINTS OFFERED. PT TENDS TO BE ISOLATIVE FROM OTHERS IN THE COMMUNITY. NO EPISODES OF IRRITABLITY NOTED. PT IS ATTENDING GROUPS. VITALS ARE STABLE, APPETITE IS GOOD.
[2016-05-02 16:14] VITALS: BP 156/96
--- NOTE | 2016-05-02 17:37 | NUR ---
FAVIOLA FENG APRN MADE AWARE OF TODAY'S VS AND ELEVATED BP TRENDS.
[2016-05-02 19:33] VITALS: BP 153/96
--- NOTE | 2016-05-02 21:23 | NUR ---
PT IS LETHARGIC, SLEEPING IN ROOM FOR LONG PERIODS, NOT INTERACTING MUCH IF AT ALL WITH STAFF/PEERS. PT ISOLATING IN ROOM FOR MAJORITY OF EVENING AND WITHDRAWN WHILE IN MILIEU. MOOD ID STABLE, AFFECT IS FLAT/CONSTRICTED, COMMUNICATION IS NORMAL AND SPARSE, AND APPETITE IS NORMAL. PT DENIES SI AT THIS TIME.
[2016-05-03 07:40] VITALS: BP 145/79
[2016-05-03 12:15] VITALS: BP 151/77
--- NOTE | 2016-05-03 14:49 | NUR ---
PT IS LETHERGIC, STAYING IN ROOM FOR PERIODS OF TIME. PT IS NOT INTERACTING MUCH WITH STAFF AND PEERS. PT DOES NOT ATTEND GROUPS. PT MOOD IS STABLE WITH A FLAT, DEPRESSED AFFECT. PT DENIES SI THOUGHTS. PT IS COMPLIANT WITH UNIT RULES. NO COMPLIANTS OFFERED
[2016-05-03 16:02] VITALS: BP 154/96
--- NOTE | 2016-05-03 16:15 | CP SOUTH PROGRESS NOTE PSYCH ---
Psych (Inpt) Progress Note Progress Note The patient was seen for follow-up for schizoaffective disorder, most recent episode depressed, with suicidal ideation. The patient was discussed with unit staff, and individually interviewed. As per unit staff he has been quiet, keeping to himself. Due to his extreme obesity it is difficult for him to clean himself and he needs a lot of support with it. He was observed to be at times incontinent which is most likely due to being overweight and not being able to reach the restroom in time. He stated that he sometimes wets the bed at night but gives the same reason that he is unable to reach the restroom. He is a morbidly obese man, having difficulty sitting in a chair and getting up from it. He has difficulty moving, and appears in pain which he admits he is in, due to being so overweight that his knee joints hurt. The patient states that "the voices are always with me but not as bad as they were." He reports his mood as depressed and frustrated, being very much bothered by his extreme weight and feeling that he is not receiving any help with it from his providers. The patient is complaining of always feeling tired even though he says he sleeps and he was observed sleeping through the night by the unit staff. It is possible that he has sleep apnea and is not able to rest well. The patient says that his primary care provider suggested a sleep study but that never happened. He currently denies suicidal/homicidal ideation and feels that the medication he 's taking is helpful for his mood and auditory hallucinations. We suggested to the patient that he might rest better if he was in the upright position instead of laying flat down, he said he would try to do that. We will continue present management, observation, symptom monitoring, and discharge planning. The patient will be followed up daily by the unit psychiatrist.
[2016-05-03 19:03] VITALS: BP 153/95
--- NOTE | 2016-05-03 20:53 | NUR ---
PT IS STABLE WITH FLAT AFFECT. PRESENT WITHIN THE MILIEU BUT MINIMAL TO NO INTERACTIONS WITH PEERS/STAFF. PT WILL ENGAGE ONLY WHEN OTHERS ENGAGE HIM FIRST. SLOW TO RESPOND AND VAGUE. PT IS CALM AND COOPERATIVE THIS EVENING SHIFT. PT VISITED WITH MEMBERS OF HIS [facility] TODAY AND ENJOYED SPENDING TIME WITH THEM-- THEY PROVIDED HIM WITH A BLESSING IN THE GROUP ROOM. PTS VS ARE STABLE AND DENIES ANY SI/HI TO THIS MHW.
--- NOTE | 2016-05-04 06:18 | NUR ---
PT APPEARED TO SLEEP WELL. PT SMELLS POORLY.
[2016-05-04 08:12] VITALS: BP 156/108
[2016-05-04 12:08] VITALS: BP 154/95
--- NOTE | 2016-05-04 14:22 | NUR ---
PT VISIBLE FOR SOME OF THE DAY IN THE MILIEU. HE ATTENDED PLANNING MEETING, BUT NOT FOCUS GROUP. HE SHARED IN PLANNING MEETING THIS MORNING THAT HE FEELS READY TO DISCHARGE. PT DID NOT ATTEND FOCUS GROUP, AND HAS MINIMAL INTERACTIONS WITH HIS PEERS. PT HAS BEEN COMPLIANT WITH THE RULES OF THE UNIT, AND DENIES HAVING ANY THOUGHTS TO HURT HIMSELF.
[2016-05-04 16:16] VITALS: BP 140/90
--- NOTE | 2016-05-04 18:29 | CP SOUTH PROGRESS NOTE PSYCH ---
Psych (Inpt) Progress Note Progress Note The patient was seen for follow-up for schizoaffective disorder, most recent episodes depressed, with suicidal ideation on admission, currently absent. The patient was discussed with unit staff and seen individually. He continues to keep to himself, he continues to be in pain because of him being so overweight, he continues to have difficulty ambulating, sitting and standing. The patient says that the "voices" are really not loud at all and they are manageable. He describes his mood is depressed and worried but denies suicidal/homicidal ideation. He has been compliant with his medication and believes that they are helpful. We will continue present management, observation, symptom monitoring, and discharge planning. The patient will be followed up daily by the unit psychiatrist.
[2016-05-04 19:21] VITALS: BP 149/92
--- NOTE | 2016-05-04 21:30 | NUR ---
PATIENT ALERT AND ORIENTED X3, CALM AND COOPERATIVE; HE ATTENDED GROUPS WITH GOOD PARTICIPATION; HE VERBALIZES BEING LESS BOTHERED BY VOICES TODAY, AND FEELS MORE READY TO GO HOME SOON; VITAL SIGNS WNL; PATIENT SITTING IN LOUNGE FOR PARTS OF EVENING.
--- NOTE | 2016-05-05 05:48 | NUR ---
PATIENT SLEPT ALL NIGHT.
[2016-05-05 08:56] VITALS: BP 151/99
--- NOTE | 2016-05-05 11:56 | SOCIAL WORKER PROG NOTE PSYCH ---
Social Work Progress Note Progress Note Patient found sleeping sitting upright in chair in mileu this . Patient presents sedated and groggy, believes this is due to medication change. Patient denies any thoughts of SI/HI today. He reports some AH but "they are not interfering or bothering me." He denies VH. Patient reports that he feels he will be ready to return home in the near future. Patient has appointments arranged with his outpatient providers at [facility] and human services case manager, Lux Cote, out of [facility] [place] is also aware that patient is preparing for discharge. Lux will be out the remainder of the week but his team is aware that patient is tentatievly discharging the hospital within the next day or two.
[2016-05-05 12:14] VITALS: BP 146/81
--- NOTE | 2016-05-05 13:29 | NUR ---
PT HAS BEEN COMPLIANT WITH UNIT RULES. PT IS OUT IN COMMUNITY NOT INTERACTING MUCH WITH STAFF AND PEERS. PT DOES ATTEND SOME GROUPS. PT HAS BEEN SEEN FALLING ALSEEP IN CHAIR OR IN GROUP. PT MOOD IS STABLE WITH A FLAT AFFECT. PT DENIES SI THOUGHTS.
--- NOTE | 2016-05-05 13:52 | CP SOUTH PROGRESS NOTE PSYCH ---
Psych (Inpt) Progress Note Progress Note Progress Note: I discussed this patient's progress to date, current mental status, treatment process in the context of the treatment plan, and discharge planning with staff/ team in the daily morning inpatient team meeting. I also met with the patient myself in individual session. A total of 15 minutes was spent with the patient with more than 50% spent in counseling and/or coordination of care. SUBJECTIVE: I'm embarrassed that I keep falling asleep." OBJECTIVE: Current Medications Sig/Pramod Start time Last Medication Dose Route Stop Time Status Admin Aspirin Buffered 81 MG DAILY 04/30 1000 AC 05/05 PO 1004 Benztropine Mesylate 1 MG 08,04/30 AC 05/05 PO 1004 Cholecalciferol 2,000 IU DAILY 04/30 1000 AC 05/05 PO 1004 Divalproex Sodium 2,000 MG QPM 04/29 2315 AC 05/04 PO 2121 Famotidine 20 MG BID 04/29 2311 AC 05/05 PO 1004 Lactobacillus 1 CAP DAILY 04/30 1000 AC 05/05 Acidophilus PO 1004 Levothyroxine Sodium 0.075 MG DAILY AC 04/30 0700 AC 05/05 PO 0657 Melatonin 5 MG AT BEDTIME 05/04 2200 DC 05/04 PO 2122 Metformin HCl 500 MG 0800,1700 04/30 0800 AC 05/05 PO 1004 Nystatin 1 BRIDGETT BID 04/30 1000 AC 05/04 TOP 2123 Perphenazine 24 MG AT BEDTIME 05/02 2200 AC 05/04 PO 2122 Perphenazine 8 MG 0800 / 0800 AC 05/05 PO 1004 Sertraline HCl 200 MG DAILY 04/30 1000 AC 05/05 PO 1004 Tamsulosin HCl 0.4 MG DAILY 04/30 1000 AC 05/05 PO 1004 Vital Signs Date Time Temp Pulse Resp B/P Pulse O2 O2 Flow FiO2 Ox Delivery Rate 05/05 1214 96 146/81 05/05 1004 97.1 94 16 151/99 / 0856 97.1 94 151/99 / 1921 97.7 92 149/92 03/ 1616 94 140/90 ASSESSMENT: I met the patient today in his room, where he was lying in bed. States he feels "groggy and sleepy." States that the voices he had been hearing are much better now. States he is no longer having suicidal thoughts, and is no longer having thoughts of harming any other people. Depression:0/10; Anxiety:0/10 (with 10 the worst.) Denies suicidal ideation, homicidal ideation, visual hallucinations, paranoid ideation. Patient reports hearing voices "a little bit." Voices are no longer command in nature. Patient states and also believes that he will not kill himself, nor will he kill or harm anyone else. Speech is well articulated, goal-directed, average in rate, volume and tone. The patient understands the risks/benefits/side effects of the medication and is agreeable to continue taking them. PLAN: Discontinue morning dose of Trilafon, as it appears the patient is overly sedated during the day. Discontinue melatonin. Continue with current management as patient is improving. Continue to provide support and encouragement.
[2016-05-05 19:45] VITALS: BP 156/98
--- NOTE | 2016-05-05 20:49 | NUR ---
PT IS LETHARGIC, SLEEPING FOR LONG PERIODS OF TIME IN ROOM. WHEN IN MILIEU, PT IS IOSLATIVE AND WITHDRAWN, SPENDING TIME AWAY FROM POPULATION, BY SELF. PT HAS, LIMITED INTERACTION WITH OTHERS. MOOD IS STABLE, AFFECT IS FLAT/CONSTRICTED, COMMUNICATION IS VERY SPARSE, AND APPETITE IS NORMAL. PT DENIES SI AT THIS TIME.
--- NOTE | 2016-05-06 04:18 | NUR ---
SLEPT WELL NI ISSUES.
--- NOTE | 2016-05-06 04:18 | NUR ---
PT. SLEPT WELL.
--- NOTE | 2016-05-06 07:50 | NUR ---
PT IS SCHEDULED FOR D/C TO [facility] TODAY. HE AGREES TO FOLLOW UP WITH [facility]. PT REPORTS AND DEMONSTRATES IMPROVEMENT IN HIS MOOD AND ABILITY TO FUNCTION. HE DENIES ANY THOUGHTS OF SUICIDE OR SELF HARM. HE DENIES AH AT THIS TIME.PT VERBALIZES A FAIR UNDERSTANDING OF HIS MED REGIME AND HASVISITING NURSES TO ASSIST IN MANAGEMENT. PT IS GIVEN EDUCATION ON MANAGING SCHIZOAFFECTIVE D/O AND DEPRESSION AND ON SUICIDE PREVENTION
[2016-05-06 08:01] VITALS: BP 153/91
[2016-05-06 08:58] VITALS: BP 153/91
[2016-05-06] MEDS ORDERED: NYSTATIN15 G1 EXT (11:00)
[2016-05-06] MEDS ORDERED: PERPHENAZINE8 M1 PO (11:17)
[2016-05-06] MEDS ORDERED: BENZTROPINE MESY1 M1 PO (11:18)
--- NOTE | 2016-05-06 11:48 | SOCIAL WORKER PROG NOTE PSYCH ---
Social Work Progress Note Progress Note Patient denies SI/HI today. He reports minimal AH that are not command in nature and not interfering with his day to day routine. Patient reports feeling ready to return home to his longterm today. This song writer informed his longterm that he will be returning today. Patient will resume VNS with [facility] today as well. Patient has appointment with Dr. Hector and his clinician Taylor this 05/09/16 @ 9:30am. Patient is able to contract for safety at this time and denies any thoughts or plans to hurt himself or others.
--- NOTE | 2016-05-06 13:03 | CP SOUTH PROGRESS NOTE PSYCH ---
Psych (Inpt) Progress Note Progress Note Include the following elements, when applicable: Involvement in the active treatment of the patient with behavioral observations of the patient and the patient's response to the treatment. Review of the ongoing treatment process in the context of the treatment plan. Indication of how multi-disciplinary staff members are carrying out the treatment plan. Plans for future interventions and recommendations for revision of the treatment plan. Liaison with other physicians/providers. Progress Note: Medication list reviewed. Case and treatment plan discussed in team meeting. Staff reports that the patient said he has control over the voices. Feeling peaceful and clam. Smiling more. He will follow up with clinician and psychiatrist at [facility] on Thursday. Patient seen at 11:10 a.m. He is a casually dressed, morbidly obese WM in NAD. Walks slowly. Calm, polite and cooperative. No psychomotor agitatation/ retardation. Speech normal in volume, rate and tone. Affect is calm and blunted. Reports doing very well. Has no complaints. Denies hearing voices. Pleased with medication change from Abilify to perphenazine/Cogentin except for report of dry mouth and sore throat. We will check a throat culture. Reports mood is very good. Rates sad mood 1/10 and anxiety 2/10, indicating that he is a little nervous about going home. Denies feeling hopeless, stating that he is optimistic. Denies feeling helpless, worthless or guilty. Denies active and passive SI. Denies HI. On admission, he had CAH to marcello RN, life scientist and former rn case mgr. No longer has these CAHs. Denies any HI, plan or intent. Denies AH and VH. Denies PI. Ox3. Reports sleep has been good here. Appetite is good. Energy is "kind of low." IMPRESSION: Condition improved. We are checking a throat culture. Okay for discharge today to home with follow up with visiting nurse and [facility].
--- NOTE | 2016-05-06 16:25 | IP INCIDENTAL NOTE PSYCH ---
Incidental Note Notation: I had called in perphenazine, Cogentin and Nystatin Rx's to [facility] but visiting nurse is requesting [facility]. I contacted [facility] and asked them to transfer the 3 prescriptions above to [facility] [phone] and they agreed to do so.
--- NOTE | 2016-05-06 16:56 | DISCHARGE SUMMARY REPORT-PSYCH ---
Visit Information Visit Dates/Diagnosis' Admission Date: 04/29/16 Discharge Date: 05/06/16 Reason for Admission: Command auditory hallucinations to hurt/kill others. Psy Discharge Primary Diag: Schizoaffective d/o, depressed Psy Discharge Secondary Diag: Migaines Hypertension Arthritis Chronic pain Diabetes Hypothyroidism Morbid obesity Hospital Course Significant Lab Findings: Lab Hemoglobin A1c 7.3 % H 04/30/16 0626 TSH 2.110 uIU/mL 04/29/16 1449 Triglycerides 276 mg/dL H 04/30/16 0626 Amphetamines Screen < 100 NG/ML 04/29/16 1253 Barbiturate Screen < 60 NG/ML 04/29/16 1253 Methadone Screen < 40 NG/ML 04/29/16 1253 Serum Alcohol < 10.0 MG/DL 04/29/16 1449 U Benzodiazepines Scrn < 85 NG/ML 04/29/16 1253 Ur Phencyclidine Scrn < 6.00 NG/ML 04/29/16 1253 Urine Cannabis Screen < 5.00 NG/ML 04/29/16 1253 Urine Cocaine Screen < 50 NG/ML 04/29/16 1253 Urine Opiates Screen < 100.00 NG/ML 04/29/16 1253 Valproic Acid 44.1 ug/mL L 04/30/16 0626 Valproic Acid 81.2 ug/mL 05/02/16 0722 Urine Glucose 500 MG/DL H 04/30/16 1705 Urine Ketones TRACE H 04/30/16 1705 Course Complications: None. Consultations: Patient was seen for admission H&P by Dr. Alexandre Garcia. Please refer to Dr. Garcia's note for additional information. Allergies: Coded Allergies: bupropion (From WELLBUTRIN) (Severe, UNKNOWN PER PT 04/29/16) haloperidol (From HALDOL) (UNKNOWN PER PT 04/29/16) lithium (?ALLERGY 04/29/16) Hospital Course/TX Response: The patient was monitored on the unit for safety, psychosis and mood disorder. He participated in multimodal treatments on the unit. Abilify was discontinued and replaced by perphenazine and Cogentin. Patient showed a good response to this medication change with improvement in AHs and clearing of HI. Progress note on date of discharge, 05/06/16: Medication list reviewed. Case and treatment plan discussed in team meeting. Staff reports that the patient said he has control over the voices. Feeling peaceful and clam. Smiling more. He will follow up with clinician and psychiatrist at [facility] on Thursday. Patient seen at 11:10 a.m. He is a casually dressed, morbidly obese WM in NAD. Walks slowly. Calm, polite and cooperative. No psychomotor agitatation/ retardation. Speech normal in volume, rate and tone. Affect is calm and blunted. Reports doing very well. Has no complaints. Denies hearing voices. Pleased with medication change from Abilify to perphenazine/Cogentin except for report of dry mouth and sore throat. We will check a throat culture. Reports mood is very good. Rates sad mood 10 and anxiety 2/10, indicating that he is a little nervous about going home. Denies feeling hopeless, stating that he is optimistic. Denies feeling helpless, worthless or guilty. Denies active and passive SI. Denies HI. 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 No longer has these CAHs. Denies any HI, plan or intent. Denies AH and VH. Denies PI. Ox3. Reports sleep has been good here. Appetite is good. Energy is "kind of low." IMPRESSION: Condition improved. We are checking a throat culture. Okay for discharge today to home with follow up with visiting nurse and [facility]. Discharge HBIPS - Tobacco Use Treatment Offered Post DC Medications Offered: NA-No Tob Use >30 days Post DC Tobacco Treatment Plan: NA-No Tobacco use >30days - EtOH/Drug Use D/O Treatment Offered Post DC Medications Offered: NA-No EtOH/Drug Use D/O Post DC EtOH/SubAbuse TX Plan: NA-No EtOH/Drug Use D/O Metabolic Screening - Screen if on a Neuroleptic Medication - Metabolic screening should include: - Blood Pressure, BMI, Glucose or Hgb A1c, & a - Lipid profile from within the past 365 days. Metabolic Screening () Not Applicable, patient not on a neuroleptic. OR () Patient on a neuroleptic(s) . Enter below results for Glucose or Hemoglobin A1C, and lipid panel if obtained during the last 365 days. BMI: 59.900 Blood Pressure: 153/91 Laboratory Results (If applicable): Lab Cholesterol 197 MG/DL 04/30/16625 Cholesterol/HDL Ratio 4 % 04/30/16625 Glucose 91 mg/dL 04/29/16 1449 HDL Cholesterol 54 mg/dL 04/30/16625 Hemoglobin A1c 7.3 % H 04/30/16625 LDL Cholesterol, Calc 88 mg/dL 04/30/16625 Triglycerides 276 mg/dL H 04/30/16625 Discharge Instructions General Discharge Information Discharge Medications: Discharge Medications- (Dose, route, freq, indication): HOME MEDICATION LIST START taking these NEW Home Medications: Perphenazine Dose: ORAL, AT BEDTIME for Qty: 42 Called in to (Perphenazine) 8 MG 24 Milligram voices, to clear thoughts Refills: 0 Pharm 1 TABLET Last Taken:05/05/16 Time:2220 Benztropine Mesylate Dose: ORAL, 0800,1999 for to Qty: 28 Called in to (Benztropine 1 Milligram prevent side effects Refills: 0 Pharm 1 Mesylate) 1 MG Last Taken:05/06/16 TABLET Time:0900 CONTINUE taking these Home Medications: Aspirin (Ecotrin*) 81 MG Dose: ORAL, DAILY for TABLET.DR 1 Tablet HEART/BLOOD Last Taken:05/06/16 Time:0900 Famotidine (Pepcid) 20 Dose: ORAL, TWICE DAILY for GI MG TABLET 1 Tablet Last Taken:05/06/16 Time:0900 Cholecalciferol (Vitamin Dose: ORAL, DAILY for D3) (Vitamin D) 2,000 1 Capsule SUPPLEMENT UNIT CAPSULE Last Taken:05/06/16 Time:0900 Lactobacillus Dose: ORAL, DAILY for Acidophilus 1 Capsule PROBIOTIC (Acidophilus) 1 EACH Last Taken:05/06/16 CAPSULE Time:0900 Levothyroxine Sodium Dose: ORAL, DAILY for THYROID (Levothyroxine Sodium) 75 Microgram PROBLEMS 75 MCG TABLET Last Taken:05/06/16 Time:0630 Tamsulosin HCl (Flomax) Dose: ORAL, DAILY for MUSCLE 0.4 MG CAP.ER.24H 0.4 Milligram RELAXANT Last Taken:05/06/16 Time:0900 Metformin HCl (Metformin Dose: ORAL, TWICE DAILY as HCl ER) 500 MG TAB.ER.24 500 Milligram needed for BLOOD SUGAR Last Taken:05/06/16 Time:0900 Divalproex Sodium Dose: ORAL, PM for MOOD (Depakote ER) 500 MG 2,000 Milligram STABILITY TAB.ER.24H Last Taken:05/05/16 Time:2220 Sertraline HCl (Zoloft) Dose: ORAL, DAILY for 100 MG TABLET 200 Milligram DEPRESSION Last Taken:05/06/16 Time:0900 Nystatin (Nystatin) 100, Dose: ON SKIN, TWICE DAILY Renewed 000 UNIT/GRAM CREAM..G. 1 Gram for FUNGAL RASH Called in to Last Taken:05/04/16 Pharm 1 Time:2119 STOP taking these DISCONTINUED Home Medications: Lisinopril/Hydrochlorothiazide Dose: ORAL, DAILY for BP (Lisinopril-Hctz 10-12.5 MG 1 Tablet Reason Stopped: Unclear Tab) 1 EACH TABLET Aripiprazole (Abilify) 30 MG Dose: ORAL, DAILY for ANTI-PSYCHOTIC TABLET 30 Milligram Reason Stopped: Changed to different med Multiple Neuroleptics: ([x]) Not Applicable OR Document below three failed attempts at monotherapy, or a plan to taper to monotherapy, or augmentation of Clozapine. () Patient's Diet: No concentrated sweets. Patient's Activity: No restrictions. DC Disposition: Returning to home. Recommendations: Patient advised to see PCP for high TG of 276, for high HgB A1c of 7.3 and for skin fungal infection. Patient advised to see PCP for medical conditions. Patient advised to ask PCP if patient should resume lisinopril + HCTZ. Referred To: Dr. Saravia at [facility], appointment 05/09/16 at 9:30 a.m. [facility] 05/06/16. Copies To: Dr. Nathalie Hector; [facility]
--- NOTE | 2016-05-12 16:09 | IP INCIDENTAL NOTE PSYCH ---
Incidental Note Notation: Although throat swabs were obtained on the date of discharge, testing could not be performed due to a labeling error. I tried to contact the patient about this late last week, but I was unable to reach him by phone. Lucinda Lee LCSW left voicemail for Dr. Hector on 05/09/16 that throat culture was not obtained.
== END 2016-05-06 12:00 | DRG 885 ==
LOC: ERH 11:54 → ERHI 17:15 → CP SOUTH 17:15
PROVIDERS: Emergency Medicine; ADMIT Psychiatry & Neurology Psychiatry
DX: F25.1 Schizoaffective disorder, depressive type (principal); E66.01 Morbid (severe) obesity due to excess calories; I10 Essential (primary) hypertension; G43.909 Migraine, unspecified, not intractable, without status migrainosus; M19.90 Unspecified osteoarthritis, unspecified site; G89.29 Other chronic pain; E11.9 Type 2 diabetes mellitus without complications; E03.9 Hypothyroidism, unspecified
CPT/HCPCS: 36415; 80307; 81001; 81003; 87086; G0480; Q2036

== ENCOUNTER 2016-06-14 12:48 | Inpatient (IN) | payer OTHER, MEDICARE ==
[~2016-06-14] VITALS: Ht 172.7 cm; Wt 226.8 kg
[~2016-06-14 12:48] MED LIST changes: +ABILIFY30 M1 PO; +BENZTROPINE MESY1 M1 PO; +FLOMAX0.4 M1 PO; +LEVOTHYROXINE75 MCG PO; +METFORMIN HCL500 M2 PO; +NYSTATIN15 G1 EXT; +PERPHENAZINE8 M1 PO
--- NOTE | 2016-06-14 12:50 | NUR ---
PT TO ZEKE FROM HOME FOR +SI/+HI. PT FEELING SI/HI SINCE THIS MORNING. SI PLAN TO OVERDOSE ON SLEEPING PILLS. HX OF SCHIZOAFFECTIVE DISORDER, DEPRESSION,ANXIETY,PRE-DIABETIS,HTN. BG 186 BY SPANISH TEACHER. PT DENIES ETOH/ILLICIT DRUG USE. VSS. ERICKA MD AT BEDSIDE FOR PT EVAL.
--- NOTE | 2016-06-14 12:56 | ED PSYCHIATRIC COMPLAINT ---
History of Present Illness General Chief Complaint: Psychiatric Related Complaint Stated Complaint: BIBA FOR + si Source: patient, old records, EMS Exam Limitations: no limitations Vital Signs & Intake/Output Vital Signs & Intake/Output Vital Signs Date Time Temp Pulse Resp B/P Pulse O2 O2 Flow FiO2 Ox Delivery Rate 06/16 1314 97.4 76 18 121/63 96 06/16 1033 97.6 82 16 144/90 97 Room Air 06/16 1002 148/72 06/16 1002 148/72 06/16 0731 97.0 76 18 137/79 4 Room Air 06/16 0623 96.2 71 18 147/70 97 06/16 0114 98.3 61 24 135/75 95 06/15 2222 97.5 77 20 135/87 06/15 2220 97.5 77 20 135/87 95 Room Air 06/15 1947 97.3 77 20 108/78 98 Room Air Allergies Coded Allergies: bupropion (From WELLBUTRIN) (Severe, UNKNOWN PER PT 04/29/16) haloperidol (From HALDOL) (UNKNOWN PER PT 04/29/16) lithium (?ALLERGY 04/29/16) Triage Nurses Notes Reviewed? yes HPI: Patient sent in for evaluation of depression with suicidal ideations. Patient has a plan to overdose on his sleeping pills. Patient verbalized these concerns so was sent in for evaluation. Patient states that he did not take anything that he was not supposed to. Patient denies any homicidal ideations. Patient states that he has been compliant with his medications. (ERICKA MONTANO,PHYLICIA Newman) Reconcile Medications Aripiprazole (Abilify) 30 MG TABLET 1 TAB PO DAILY MENTAL HEALTH (Reported) Aspirin (Ecotrin*) 81 MG TABLET.DR 1 TAB PO DAILY HEART/BLOOD (Reported) Atorvastatin Calcium (Lipitor) 40 MG TABLET 1 TAB PO QPM CHOLESTEROL ( Reported) Benztropine Mesylate 1 MG TABLET 1 MG PO 0800,1999 to prevent side effects Cholecalciferol (Vitamin D3) (Vitamin D) 1,000 UNIT TABLET 1 TAB PO DAILY SUPPLEMENT (Reported) Divalproex Sodium (Depakote ER) 500 MG TAB.ER.24H 2,000 MG PO PM MOOD STABILITY (Reported) Famotidine (Pepcid) 20 MG TABLET 1 TAB PO BID GI (Reported) Lactobacillus Acidophilus (Acidophilus) 1 EACH CAPSULE 1 CAP PO DAILY PROBIOTIC (Reported) Levothyroxine Sodium 75 MCG TABLET 75 MCG PO DAILY THYROID PROBLEMS (Reported ) Metformin HCl 500 MG TABLET 1 TAB PO BID DM (Reported) Metoprolol Tartrate 25 MG TABLET 1 TAB PO BID HEART/BP (Reported) Nystatin 100,000 UNIT/GRAM CREAM..G. 1 GM EXT BID FUNGAL RASH Perphenazine 8 MG TABLET 24 MG PO AT BEDTIME voices, to clear thoughts Sertraline HCl (Zoloft) 100 MG TABLET 200 MG PO DAILY DEPRESSION (Reported) Tamsulosin HCl (Flomax) 0.4 MG CAP.ER.24H 0.4 MG PO DAILY (Reported) (RUSS MONTANO,YURIY) Past History Medical History Any Pertinent Medical History? 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 No (ERICKA MONTANO,PHYLICIA Newman) Review of Systems Review of Systems Constitutional: Reports: no symptoms. EENTM: Reports: no symptoms. Respiratory: Reports: no symptoms. Cardiovascular: Reports: no symptoms. GI: Reports: no symptoms. Genitourinary: Reports: no symptoms. Musculoskeletal: Reports: no symptoms. Skin: Reports: no symptoms. Neurological/Psychological: Reports: see HPI, depressed. Hematologic/Endocrine: Reports: no symptoms. Immunologic/Allergic: Reports: no symptoms. All Other Systems: Reviewed and Negative (ERICKA MONTANO,PHYLICIA Newman) Physical Exam Physical Exam General Appearance: well developed/nourished, mild distress Head: atraumatic Eyes: Bilateral: PERRL, EOMI. Ears, Nose, Throat: normal pharynx, normal ENT inspection, hearing grossly normal Neck: normal inspection, supple Respiratory: normal breath sounds Cardiovascular: regular rate/rhythm Gastrointestinal: soft, non-tender Extremities: normal range of motion Neurological/Psychiatric: no motor/sensory deficits, awake, alert, calm, oriented x 3 Appearance/Memory/Insight: appropriate appearance, appropriate insight Behavoir/Eye Contact/Speech: cooperative, normal speech, good eye contact Thoughts/Hallucinations: normal thought pattern, no apparent hallucination Skin: intact, normal color, warm/dry SAD PERSONS Done? CRISIS CONSULT OBTAINED (PHYLICIA BARNETT MD) Progress Differential Diagnosis: drug intoxication, drug overdose, drug withdrawal, electrolyte abnormality Plan of Care: Orders Procedure Date/time Status Admit to inpatient psych 06/16 1512 Active 06/14/2016 7:20:57 PM Patient signed out to me by Dr. Barnett. Pending inpatient crisis bed placement. 06/16/2016 7:17 AM PATIENT SIGNED OUT TO ME BY DR LANDRUM. PENDING CRISIS BED PLACEMENT . (YURIY SOLANO MD) Hand-Off Endorsed To: YURIY SOLANO MD Endorsed Time: 190 Pending: consult (BED SEARCH) Comments: Patient has been seen and evaluated by the buoy tender. Patient is to be admitted. A bed search is underway. (PHYLICIA BARNETT MD) Hand-Off Endorsed To: PHYLICIA BARNETT MD Endorsed Time: 07 Pending: consult (CRISIS) (YURIY SOLANO MD) Hand-Off Endorsed To: YURIY SOLANO MD Endorsed Time: 07 Pending: consult (LUCITA MONTANO,BERTHA Charles) Departure Departure Disposition: STILL A PATIENT Condition: Stable Referrals: TEMITOPE PATINO MD (PCP/Family) Departure Forms: Customer Survey General Discharge Information (PHYLICIA BARNETT MD) Departure Time of Disposition: 1512 Clinical Impression Primary Impression: Schizoaffective disorder Secondary Impressions: Depression, Suicidal ideation Psych Admission Note Psychiatric Admission: I have seen and evaluated DORY ANDREA. I have also reviewed all the pertinent lab results and diagnostic results. DORY ANDREA will be admitted to our inpatient Psychiatric unit for treatment and care. (YURIY SOLANO MD) (PHYLICIA BARNETT MD) Disposition: STILL A PATIENT Condition: Stable Clinical Impression Primary Impression: Suicidal ideation Secondary Impressions: Depression Referrals: TEMITOPE PATINO MD (PCP/Family) Departure Forms: Customer Survey General Discharge Information (PHYLICIA BARNETT MD) placement. (YURIY SOLANO MD) Hand-Off Endorsed To: YURIY SOLANO MD Endorsed Time: 1899 Pending: consult (BED SEARCH) Comments: Patient has been seen and evaluated by the buoy tender. Patient is to be admitted. A bed search is underway. (PHYLICIA BARNETT MD) Hand-Off Endorsed To: PHYLICIA BARNETT MD Endorsed Time: 07 Pending: consult (CRISIS) (YURIY SOLANO MD) Departure Departure Disposition: STILL A PATIENT Condition: Stable Clinical Impression Primary Impression: Suicidal ideation Secondary Impressions: Depression Referrals: TEMITOPE PATINO MD (PCP/Family) Departure Forms: Customer Survey General Discharge Information (PHYLICIA BARNETT MD)
--- NOTE | 2016-06-14 13:08 | NUR ---
PT HAS TWO BELONGINGS BAGS LOCKED IN CLOSET AND ONE VALUABLES BAG GIVEN TO POD 2 RN.
--- NOTE | 2016-06-14 13:19 | NUR ---
BLOOD DRAWN AND SENT TO LAB-SST,LAV,BLUE,AR[facility]OLA.
[2016-06-14 13:34] LABS: ABSOLUTE BASOPHIL COUNT 0 /CUMM (0.0-0.2); ABSOLUTE EOSINOPHIL COUNT 0.1 /CUMM (0.0-0.7); ABSOLUTE GRANULOCYTE CT 4.6 /CUMM (1.4-6.5); ABSOLUTE LYMPH COUNT 2.5 /CUMM (1.2-3.4); ABSOLUTE MONOCYTE COUNT 0.7 /CUMM (0.10-0.60); BASOPHIL % 0.4 % (0.0-2.0); EOSINOPHIL % 1.8 % (0-5); GRANULOCYTE % 58.3 % (42.2-75.2); HEMATOCRIT 42.3 % (42-52); MEAN CORPUSCULAR HGB 28.4 PG (27.0-31.0); MEAN CORPUSCULAR HGB CONC 33.3 G/DL (33.0-37.0); MEAN CORPUSCULAR VOLUME 85.3 FL (80.0-94.0); MEAN PLATELET VOLUME 7.6 FL (7.4-10.4); PLATELET COUNT 204 /CUMM (130-400); RBC DISTRIBUTION WIDTH 14.6 % (11.5-14.5); RED BLOOD CELL CT 4.96 /CUMM (4.70-6.10); WHITE BLOOD CELL COUNT 7.9 /CUMM (4.8-10.8)
--- NOTE | 2016-06-14 13:47 | NUR ---
URINE TRIO SENT TO LAB
--- NOTE | 2016-06-14 14:31 | NUR ---
PT EVALUATED BY CRISIS.
--- NOTE | 2016-06-14 14:55 | ED PSY CRISIS COLLATERAL NOTE ---
Collateral Note Collateral Note Family/Inform/Isaac Contacts: This clinician called Collette Carrerott Rodent Control Worker [facility] [phone] reports the Pt lives on [address] [place] [address]. Collette reports the Pt has a long history of Mental Illness being treated by [facility] Dr. Joseline Hector [phone]. She reports the Pt was in the hospital last week for chest pain and suicidal ideation at [facility]. She reports the Pt has a history of suicidal ideation.
--- NOTE | 2016-06-14 15:34 | ED PSYCH CRISIS CONSULTATION ---
See Addendum Crisis Consult Basic Assessment Date of Consult: 06/14/16 Responsible Person/Accompanied By: self Insurance Authorization: Insurance #1: Insurance name: MEDICARE A Phone number: Policy number: [id number] Group number: Authorization number: ED Provider: Patient's ED Provider: ERICKA MONTANO,PHYLICIA Newman Primary Care Physician: Patient's PCP: TEMITOPE PATINO MD PCP's Current Psychiatrist: Dr. Mimi Estrada Chief Complaint: Psychiatric Related Complaint Patient's Quote: " I will kill myself by taking pills" Present Illness: Pt is 51 year old single male BIBA with suicidal ideation with a plan to overdose by pills, homicidal ideation thought to harm someone else no identified person. He was cooperative with the interview, oriented x3, overweight, poor eye contact, depressed, sad, hopeless, speech slow, racing thoughts and states he would like to . Pt denies any substance abuse problems. He reports being treated at [address] treated by psychiatrist Dr. Joseline Hector with Depakashte SAMIRA, Lisa and Tiarra. [facility] in [place], [place]. He reports the Systems Test Technician of the home is Collette Marcelino [phone]. Patient's Address: [address] [place] [address] Other MARI Who Do You Live With? Other (see notes) (custodial) Family/Informants Interviewed: Correction Systems Test Technician Collette Marcelino [phone] Allergies - Coded Allergies: bupropion (From WELLBUTRIN) (Severe, UNKNOWN PER PT 04/29/16) haloperidol (From HALDOL) (UNKNOWN PER PT 04/29/16) lithium (?ALLERGY 04/29/16) Laboratory Results: Laboratory Tests 06/14/16 1338: Urine Opiates Screen < 100.00, Methadone Screen < 40, Barbiturate Screen < 60, Ur Phencyclidine Scrn < 6.00, Amphetamines Screen < 100, U Benzodiazepines Scrn < 85, Urine Cocaine Screen < 50, Urine Cannabis Screen < 5.00 06/14/16 1315: Anion Gap 11, Estimated GFR > 60, BUN/Creatinine Ratio 13.8, Glucose 177 H, Calcium 9.3, Total Bilirubin 0.4, AST 44, ALT 103 H, Alkaline Phosphatase 62, Total Protein 7.0, Albumin 3.9, Globulin 3.1, Albumin/Globulin Ratio 1.3, CBC w Diff NO MAN DIFF REQ, RBC 4.96, MCV 85.3, MCH 28.4, RDW 14.6 H, MPV 7.6, Gran % 58.3, Lymphocytes % 31.1, Monocytes % 8.4, Eosinophils % 1.8, Basophils % 0.4, Absolute Granulocytes 4.6, Absolute Lymphocytes 2.5, Absolute Monocytes 0.7 H, Absolute Eosinophils 0.1, Absolute Basophils 0, PUBS MCHC 33.3, Valproic Acid 62.3, Serum Alcohol < 10.0 (RENA RUBIO,[place]) Basic Assessment Present Illness: 06/14/16: Crisis met with pt when crisis was informed by RN that pt said he feels better and wants to go home. Pt reported to [facility] he won't hurt anyone. [facility] talked with pt about what initially brought him to the ED. He agreed with the original disposition that he should be admitted to the hospital due to his plan to OD by pills. Pt was reminded that there are no beds here at [facility] and that Crisis is looking for bed at another hospital. Pt agreed to to stay in ED. [facility] consulted Dr. Estrada to update her on pt. Explained to MD that patient was initally requesting to go home at [facility] shift change. It was decided to PEC pt in order to ensure that he didn't try to leave the ED overnight. Current Medications - Scheduled Medications Aripiprazole (Abilify) 30 MG TABLET 1 TAB PO DAILY MENTAL HEALTH (Reported) Entered as Reported by MARGARET MENA on 06/14/16 185 Aspirin (Ecotrin*) 81 MG TABLET. 1 TAB PO DAILY HEART/BLOOD (Reported) Entered as Reported by MARGARET MENA on 06/19/15 1739 Atorvastatin Calcium (Lipitor) 40 MG TABLET 1 TAB PO QPM CHOLESTEROL ( Reported) Entered as Reported by MARGARET MENA on 06/14/16 185 Benztropine Mesylate 1 MG TABLET 1 MG PO 0800,2000 to prevent side effects #28 TAB Prescribed by BERTHA KERNS MD on 05/06/16 Last Taken: Unknown Dose at an unknown date and time Cholecalciferol (Vitamin D3) (Vitamin D) 1,000 UNIT TABLET 1 TAB PO DAILY SUPPLEMENT (Reported) Entered as Reported by MARGARET MENA on 06/14/16 185 Divalproex Sodium (Depakote ER) 500 MG TAB.ER.24H 2,000 MG PO PM MOOD STABILITY (Reported) Entered as Reported by OLGA COMBS on 04/29/162029 Famotidine (Pepcid) 20 MG TABLET 1 TAB PO BID GI (Reported) Entered as Reported by MARGARET MENA on 06/19/15 174 Lactobacillus Acidophilus (Acidophilus) 1 EACH CAPSULE 1 CAP PO DAILY PROBIOTIC (Reported) Entered as Reported by MARGARET MENA on 06/19/151742 Levothyroxine Sodium 75 MCG TABLET 75 MCG PO DAILY THYROID PROBLEMS (Reported ) Entered as Reported by OLGA COMBS on 04/29/162022 Metformin HCl 500 MG TABLET 1 TAB PO BID DM #180 (Reported) Entered as Reported by MARGARET MENA on 06/14/16 185 Metoprolol Tartrate 25 MG TABLET 1 TAB PO BID HEART/BP #60 (Reported) Entered as Reported by MARGARET MENA on 06/14/16 185 Nystatin 100,000 UNIT/GRAM CREAM..G. 1 GM EXT BID FUNGAL RASH #1 TUBE Prescribed by BERTHA KERNS MD on 05/06/16 Perphenazine 8 MG TABLET 24 MG PO AT BEDTIME voices, to clear thoughts #42 TAB Prescribed by BERTHA KERNS MD on 05/06/16 Last Taken: Unknown Dose at an unknown date and time Sertraline HCl (Zoloft) 100 MG TABLET 200 MG PO DAILY DEPRESSION (Reported) Entered as Reported by OLGA COMBS on 04/29/162031 Tamsulosin HCl (Flomax) 0.4 MG CAP.ER.24H 0.4 MG PO DAILY (Reported) Entered as Reported by OLGA COMBS on 04/29/162025 (JORGE WALTER LCSW) Past History Past Medical History Neurological: migraine EENT: NO TEETH, NO DENTURES Cardiovascular: hypertension Respiratory: NONE Gastrointestinal: NONE Hepatic: NONE Renal: NONE Musculoskeletal: ARTHRITIS HEEL SPUR Psychiatric: anxiety, chronic pain disorder, depression, psychosis (command auditory hallucination), schizo affective disorder Endocrine: PRE-DIABETIC (on oral hypoglycemic regimen) Blood Disorders: NONE Cancer(s): NONE CHIEF ELECTRICIAN/Reproductive: NONE Past Surgical History Surgical History: non-contributory Psychosocial History Strengths/Capabilities: Supportive family Able to articulate needs/wants Asking for help Connected to outpatient treatment Physical Limitations (Interventions): Morbid obesity Psychiatric Treatment History Psych Treatment Psychiatric Treatment Yes Inpatient Treatment Yes Outpatient Treatment Yes Location of Treatment [place], [place] Reason for Treatment Schizoaffective Disorder Dates of Treatment currently being treated at [facility] Dr. Suarez [phone] Response to Treatment poor Diagnosis by History: rSchizoaffective d/o, depressed type Substance Use/Abuse History Drug Use/Abuse Substances Used/Abused No Substance Used/Abused Other (list in comments) (none) First Use none Last Used none How much used/taken none How often none For how long none Route of use none Substance Abuse Treatment Substance Abuse Treatment Past Substance Abuse TX No Inpatient Treatment No Outpatient Treatment No Location of Treatment none Reason for Treatment none Dates of Treatment none Response to Treatment none Comments: Pt BIBA for suicidal and homicidal ideation. Pt reports he will overdose by taking pills. He reports no identified person for his homicidal ideation. He reports being depressed, sad, hopeless. This case was consulted with Dr. Mimi Estrada for the Pt to be admitted to inpatient psychiatric treatment to be stabilized. (JERSEY TRACEY) Current Mental Status Mental Status Orientation: Person, Place, Situation Affect: Depressed, Flat, Hopeless, Sad Speech: Slurred Neuro-vegetative: Appetite Decreased, Energy Decreased, Helpless Appearance Appearance- Dress/Hygiene: dressed in hospital clothing Behaviors Thought Process: WNL Thought Content: WNL Memory: WNL Insight: Poor SI/HI Risk Assessment Past Suicidal Ideation/Attempts Yes Current Suicidal Ideation/Att Yes Past Homicidal Ideation/Att: No Current Homicidal Ideation/Attempts Yes Degree of Intent: Made Preparations, Plan, States Intent Danger To: Self Gravely Disabled: Lack of Insight, Poor Impulse Control, Poor Judgment Risk Factors: high anxiety/distress, SA/MH hospitalized, isolate/no social support, poor impulse control, lack of outcome concern, male Lethality Ratin PTSD Checklist PTSD Score: PTSD Score: Response Value Disturbing memories,thoughts,images of stressful experience? Not at all 1 Disturbing dreams of stressful experience from past? Not at all 1 Suddenly acting/feeling as if reliving stressful experience? Not at all 1 Total 3 PTSD Done? pt unable to participate ED Management Sitter: Yes Restraints: No ([place] TRACEY) DSM5/PS Stressors/Medical Prob Diagnosis' (DSM 5, Stressors, Medical): Schizoaffective Disorder, Depressive Type F25.1 Current GAF: 24 Comments: Pt BIBA for suicidal and homicidal ideation. Pt reports he will overdose by taking pills. He reports no identified person for his homicidal ideation. He reports being depressed, sad, hopeless. This case was consulted with Dr. Mimi Estrada for the Pt to be admitted to inpatient psychiatric treatment to be stabilized. ([place] TRACEY) Departure Disposition Psych Medical Clearance Date: 06/14/16 Medically Cleared at: 1400 Time Started: 1400 Time Ended: 1500 Psychiatrist Consulted: Dr. Mimi Estrada Date Disposition Established: 06/14/16 Time Disposition Established: 1500 Plan for Disposition - Modality: Bed Search Rationale for Disposition: Pt BIBA for suicidal and homicidal ideation. Pt reports he will overdose by taking pills. He reports no identified person for his homicidal ideation. He reports being depressed, sad, hopeless. This case was consulted with Dr. Mimi Estrada for the Pt to be admitted to inpatient psychiatric treatment to be stabilized. Type of IP Admission: Voluntary Referrals CAREY MONTANO,TEMITOPE Newman (PCP/Family) ([place] TRACEY)
--- NOTE | 2016-06-14 16:41 | NUR ---
PT RESTING ON HOSPITAL BAD, OFFERING NO COMPLAINTS, PT STATES HE DOESN'T FEEL SUISIDAL ANY MORE AND WANTS TO GO HOME, CRISIS MADE AWARE. VSS. SITTER AT BEDSIDE.
--- NOTE | 2016-06-14 16:49 | NUR ---
Crisis met with Patient after RN reported that pt is requesting to go home. Pt reported he wasn't going to hurt anyone and just wants to go home. Pt was reminded about his previous discussion with other poultryman about being admitted to the hospital due to suicial ideation. Pt agrees to stay and was informed of bed search process.
[2016-06-14] MEDS ORDERED: METFORMIN HCL500 M3 PO (18:51)
[2016-06-14] MEDS ORDERED: ABILIFY30 M1 PO (18:52)
[2016-06-14] MEDS ORDERED: LIPITOR40 M1 PO (18:52)
[2016-06-14] MEDS ORDERED: METOPROLOL TART25 M1 PO (18:53)
[2016-06-14] MEDS ORDERED: VITAMIN D1000 UNIT PO (18:53)
--- NOTE | 2016-06-14 19:30 | NUR ---
ASSUMED CARE FROM KVNG GONZALEZ. PT APPEARS TO BE RESTING COMFORTBALY. NO APPARENT DISTRESS. WILL CONTINUE TO MONITOR.
--- NOTE | 2016-06-14 21:56 | NUR ---
Pt now on PEC to ensure safety as patient has reported on 2 occassions that he wants to leave the hospital. Crisis attempted to obtain bariatric bed for patient but was informed he could only get a bariatric bed if he was admitted. Crisis was informed that ED staff would try to move pt out of hallway and into an ED room with a bed that can elevate/recline for his comfort, if the ED had enough sitters tonight.
--- NOTE | 2016-06-14 22:43 | NUR ---
PT MEDICATED WITH MEDS. REPOSTIONED. PT APPEARS MORE COMFORTABLY. RESP UNLABORED. SKIN WARM AND DRY. NO APPARENT DISTRESS. PT DENIES PAIN.
--- NOTE | 2016-06-15 00:33 | NUR ---
PT SLEEPING. RESP UNLABORED. NO APPRENT DISTRESS. SITTER PRESENT
--- NOTE | 2016-06-15 02:30 | NUR ---
PT SLEEPING. RESP UNLABORED. SITTER PRESENT
--- NOTE | 2016-06-15 04:11 | NUR ---
PT RESTING ON STRETCHER. SNORING NOTED. SITTER IN PLACE. WILL CONTINUE TO MONITOR.
--- NOTE | 2016-06-15 06:51 | NUR ---
PT AMBULATORY TO BATHROOM. GAIT STEADY, TOLERATED WELL. NO APPARENT DISTRESS
--- NOTE | 2016-06-15 08:10 | NUR ---
PT MEDICATED DOCUMENTED IN EMAR. FS 200. PT HAS NO COMPLAINTS AT THIS TIME. SITTER REMAINS AT BEDSIDE
--- NOTE | 2016-06-15 10:15 | NUR ---
PT SLEEPING AT THIS TIME. RR EVEN AND UNLABORED. SITTER REMAINS AT BEDSIDE
--- NOTE | 2016-06-15 11:40 | NUR ---
PT CARE ASSUMED BY THIS RN AT THIS TIME. PT RESTING ON BED, OFFERS NO COMPLAINTS. FBG 186 AT THIS TIME. NURSING WILL CONTINUE TO MONITOR. SITTER CONTINUES AT BEDSIDE FOR SAFETY.
--- NOTE | 2016-06-15 12:24 | ED PSYCHIATRIST/APRN CONSULT ---
Psychiatrist/PUBLIC POLICY PROFESSOR ED Consult Assessment and Plan: Pt seen as f/u. Pt notes continued SI and HI. Reirterated that did not want to go to [facility] as witnessed roomate masterbating there. He became tearful around this. MSE Appears as stated age. Very seadated but easily arousable, cooperative behavior, good, appropriate eye contact. Nl speech rate and prosody. +psychomotor retardation. Mood bad Affect irritable, tearful, depressed, constricted, appropriate, liable. Linear and goal directed thought process. ++SI or HI. Does not appear to be responding to internal stimuli. Denies AVHs, paranoia, or delusions. I/J: limited Acute inpatient stablization needed in light of HI and SI Awaiting bed placement
--- NOTE | 2016-06-15 15:31 | NUR ---
PT HAD ABRUPT EPISODE OF YELLING OUT AND BANGING LOUDLY ON WALL. PT MEDICATED WITH ATIVAN 2MG IM AND BENADRYL 50MG IM. STAFF ABLE TO VERBALLY DE-ESCALATE PT AT THIS TIME. PT AWARE THAT NEXT OUTBURST WILL RESULT IN BEHAVIORAL RESTRAINTS. PT DECLINES OFFERS BY NURSING STAFF TO IMPROVE COMFORT, SITTERS CONTINUE AT BEDSIDE FOR SAFETY.
--- NOTE | 2016-06-15 19:20 | NUR ---
PT CONTINUES TO SLEEP ON BED AT THIS TIME. EVEN, REGULAR RESPIRATIONS NOTED.
--- NOTE | 2016-06-15 22:22 | NUR ---
PT ASSISTED TO SIT TO EDGE OF BED. PT MEDICATED PER EMAR, OFFERS NO COMPLAINTS AT THIS TIME.
--- NOTE | 2016-06-16 00:14 | NUR ---
PT AMBULATORY TO BATHROOM GAIT STEADY, NO APPARENT DISTRESS, SITTERS AT BEDSIDE
--- NOTE | 2016-06-16 02:51 | NUR ---
PATIENT NOTED TO BE SLEEPING IN HOSPITAL BED IN HALLWAY W/ REGULAR RESPIRATIONS NOTED. SITTER REMAINS W/ PATIENT. PATIENT SAFETY MONITOR SHEET CONTINUED BY SITTER.
--- NOTE | 2016-06-16 04:59 | NUR ---
PATIENT CONTINUES TO SLEEP AT THIS TIME W/ REGULAR RESPIRATIONS NOTED. SITTER REMAINS W/ PATIENT. REMAINS IN HOSPITAL BED. PATIENT SAFETY MONITOR SHEET CONTINUED BY BHASKAR.
--- NOTE | 2016-06-16 06:29 | NUR ---
AWOKE PATIENT FROM SLEEP TO OBTAIN VS. PATIENT DENIES COMPLAINTS. SITTER REMAINS W/ PATIENT. PATIENT REMAINS IN HOSPITAL BED. POC: BED SEARCH.
--- NOTE | 2016-06-16 07:32 | NUR ---
ASSUMED CARE AT THIS TIME, PT RESTING ON HOSPITAL BED AND OFFERS NO COMPLAINTS AT THIS TIME. PT ATE 50 % OF HIS BREAKFAST. PT ALERT/CALM AND COPERATIVE.
--- NOTE | 2016-06-16 08:09 | NUR ---
FINGERSTICK 182 AT THIS TIME. PHARMACY CALLED FOR AM MEDS
--- NOTE | 2016-06-16 08:23 | NUR ---
PT MEDICATED PER ORDER
--- NOTE | 2016-06-16 10:12 | NUR ---
PT AWAKE AND ALERT AT THIS TIME . MEDICATED PER ORDER . PT REQUESTING TO SPEAK WITH CRISIS AGAIN DUE TO HE WOULD LIKE TO GO HOME. PT AWARE THAT CRISIS WILL BE TALKING TO HIM AGAIN , BUT AT THIS TIME SHE IS WORKING WITH ANOTHER PT
--- NOTE | 2016-06-16 13:35 | NUR ---
PT REMAINS CALM AND COPERATIVE AT THIS TIME
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
--- NOTE | 2016-06-16 15:01 | SOCIAL WORKER SOCIAL HX PSYCH ---
See Addendum Social History Basic Assessment Insurance Authorization: Insurance #1: Insurance name: MEDICARE A Phone number: Policy number: [id number] Group number: Authorization number: Curr Source of Income/Entitlements: SSDI Primary Care Physician: Patient's PCP: TEMITOPE PATINO MD PCP's Present Problem: See diagnostic assessment and original psych note Primary Language? Citizen [place] Language(s) Spoken At Home: Citizen [place] Living Situation Other Living Arrangement: custodial Residential Care/Treatment Fac long-term Feel Safe Where You Are Living No Feel Safe in Relationships? Yes Allergies - Coded Allergies: bupropion (From WELLBUTRIN) (Severe, UNKNOWN PER PT 04/29/16) haloperidol (From HALDOL) (UNKNOWN PER PT 04/29/16) lithium (?ALLERGY 04/29/16) Current Medications - Scheduled Medications Aripiprazole (Abilify) 30 MG TABLET 1 TAB PO DAILY MENTAL HEALTH (Reported) Entered as Reported by MARGARET MENA on 06/14/16 185 Aspirin (Ecotrin*) 81 MG TABLET.DR 1 TAB PO DAILY HEART/BLOOD (Reported) Entered as Reported by MARGARET MENA on 06/19/15 173 Atorvastatin Calcium (Lipitor) 40 MG TABLET 1 TAB PO QPM CHOLESTEROL ( Reported) Entered as Reported by MARGARET MENA on 06/14/16 185 Benztropine Mesylate 1 MG TABLET 1 MG PO 0800,2000 to prevent side effects #28 TAB Prescribed by BERTHA KERNS MD on 05/06/16 Last Taken: Unknown Dose at an unknown date and time Cholecalciferol (Vitamin D3) (Vitamin D) 1,000 UNIT TABLET 1 TAB PO DAILY SUPPLEMENT (Reported) Entered as Reported by MARGARET MENA on 06/14/16 185 Divalproex Sodium (Depakote ER) 500 MG TAB.ER.24H 2,000 MG PO PM MOOD STABILITY (Reported) Entered as Reported by OLGA COMBS on 04/29/16 2030 Famotidine (Pepcid) 20 MG TABLET 1 TAB PO BID GI (Reported) Entered as Reported by MARGARET MENA on 06/19/15 174 Lactobacillus Acidophilus (Acidophilus) 1 EACH CAPSULE 1 CAP PO DAILY PROBIOTIC (Reported) Entered as Reported by MARGARET MENA on 06/19/15 1743 Levothyroxine Sodium 75 MCG TABLET 75 MCG PO DAILY THYROID PROBLEMS (Reported ) Entered as Reported by OLGA COMBS on 04/29/162022 Metformin HCl 500 MG TABLET 1 TAB PO BID DM #180 (Reported) Entered as Reported by MARGARET MENA on 06/14/16 185 Metoprolol Tartrate 25 MG TABLET 1 TAB PO BID HEART/BP #60 (Reported) Entered as Reported by MARGARET MENA on 06/14/161852 Nystatin 100,000 UNIT/GRAM CREAM..G. 1 GM EXT BID FUNGAL RASH #1 TUBE Prescribed by BERTHA KERNS MD on 05/06/16 Perphenazine 8 MG TABLET 24 MG PO AT BEDTIME voices, to clear thoughts #42 TAB Prescribed by BERTHA KERNS MD on 05/06/16 Last Taken: Unknown Dose at an unknown date and time Sertraline HCl (Zoloft) 100 MG TABLET 200 MG PO DAILY DEPRESSION (Reported) Entered as Reported by OLGA COMBS on 04/29/162031 Tamsulosin HCl (Flomax) 0.4 MG CAP.ER.24H 0.4 MG PO DAILY (Reported) Entered as Reported by OLGA COMBS on 04/29/162025 Past History Past Medical History Neurological: migraine EENT: NO TEETH, NO DENTURES Cardiovascular: hypertension Respiratory: NONE Gastrointestinal: NONE Hepatic: NONE Renal: NONE Musculoskeletal: ARTHRITIS HEEL SPUR Psychiatric: anxiety, chronic pain disorder, depression, psychosis (command auditory hallucination), schizo affective disorder Endocrine: PRE-DIABETIC (on oral hypoglycemic regimen) Blood Disorders: NONE Cancer(s): NONE 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 No Relationship w/Mother: Mother 57yo in 2000 from multiple surgeries hernia, had infection. Had good relationship with Mother. Relationship w/Father: Father is 77yo, close with Father, who is on a shelter and is confused. Any Sibling(s)? Yes Sibling's Gender(s)/Age(s): male Sibling 1:, male Sibling 2:, male Sibling 3:, female Sibling 4: Relationship w/Sibling(s): Reports close with siblings, sister lives in [place] talk to her on the phone daily (Fabiana Queen) Relationship w/Friends: Has 2 good friends, Adam and Orlando. Supportive jew community Family Psych/Sub Abuse/Add Hx: None reported Abuse/Trauma History Trauma History/Current Trauma: Denies Legal History Legal Guardian/Address/Phone: Self Hx of Juvenile Legal Charges? Yes Hx of Adult Legal Charges? Yes List/Date Most Recent Lgl Chgs: 1990s - destruction of property Chgs/Dts/Incarcerations/Sentnc Denies Civil Proceedings: Denies Domestic Relations Court: Denies Child Protective Serv Involvmnt Denies Psychosocial History Primary Support System: father, sibling(s), friend Strengths/Capabilities: Supportive family Able to articulate needs/wants Asking for help Connected to outpatient treatment Likes to read and listen to music Physical Limitations (Interventions): Morbid obesity Last Physical: 2 months ago History of Blackouts? No ADL Limitations: Reported 'i eat too much, I fall asleep eating at night." Paramount/Social/Peer Relations Supportive family and jew community Meaningful Activities: Music, family, jew Childhood Religious: I am a spiritual person I believe in God, recently Baptised Baptism, has been various religions. Current Hoahaoism Affiliation: Baptism Is Spirituality Important to You? Yes Patient's Ethnicity: Turkish Cultural/Ethnic Issues: Denies Are There Developmental Issues? No Milestones Achieved: fine motor, gross motor Psychiatric Treatment History Psych Treatment Inpatient Treatment Yes Outpatient Treatment Yes Location of Treatment [place] Reason for Treatment Schizoaffective Disorder Dates of Treatment currently being treated at [facility] Dr. 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 Vicki Hector, at [facility] Treatment of Prior Episodes: See above Diagnosis: Schizoaffective d/o, depressed type Psychodynamic Issues: Chronic mental illness, medical issues, auditory command hallucinations Risk Factors: high anxiety/distress, SA/MH hospitalized, isolate/no social support, poor impulse control, lack of outcome concern, male Substance Use/Abuse History Drug Use/Abuse Substance Used/Abused No History (Denies) First Use none Last Used none How much used/taken none How often none For how long none Route of use none Substance Abuse Treatment Substance Abuse Treatment Inpatient Treatment No Outpatient Treatment No Location of Treatment none Reason for Treatment none Dates of Treatment none Response to Treatment none Education History Highest Level of Education: high school/GED Highest Grade Completed: 12 Preferred Learning Style: visual HX of Learning Difficulties: None reported Barriers to Learning: None reported Special Communication Needs: None reported Employment History Not in Labor Force: Disabled Comments: Disabled since 1998 History Have You Been in The ? No Current Mental Status Mental Status Orientation: Person, Place, Situation Affect: Depressed, Flat, Hopeless, Lonely, Sad Speech: Slurred Neuro-vegetative: Appetite Decreased, Concentration Poor, Energy Decreased, Helpless, Loss of Interest, Sleep Disturbance Appearance Appearance- Dress/Hygiene: dressed in hospital clothing Behaviors Thought Process: Racing thoughts Thought Content: Auditory Hallucinations Memory: Impaired Insight: Poor SI/HI Risk Assessment Past Suicidal Ideation/Attempts Yes Current Suicidal Ideation/Att Yes Past Homicidal Ideation/Att: Yes Current Homicidal Ideation/Attempts Yes Degree of Intent: Made Preparations, Plan, States Intent Danger To: Others, Self Gravely Disabled: Lack of Insight, Poor Impulse Control, Poor Judgment Lethality Ratin - Conclusion and Recommendations for treatment - and discharge planning Summary: 51 M presented with SI/HI on 06/14/16. He is medically cleared, and will be discharged to inpatient psychiatry.
--- NOTE | 2016-06-16 15:52 | NUR ---
REPORT GIVEN TO ALTHEA GONZALEZ. PT STABLE FOR TRANSPORT.
--- NOTE | 2016-06-16 16:18 | NUR ---
distribution called, per cara call security in 5 min.
--- NOTE | 2016-06-16 16:23 | NUR ---
SECURITY CALLED FOR ESCORT
[2016-06-16 16:42] VITALS: BP 147/74
--- NOTE | 2016-06-16 17:23 | NUR ---
Admitted from ED on voluntary for depression, +SI/HI thoughts toward staff in his home. during interview when asked if he was afraid of anyone he also mentioned staff in his home. Current mood is stable, flat affect. denied current thoughts of SI/HI. Has medical hx of DM, hypothyroid.
[2016-06-16] MEDS ORDERED: BENZTROPINE MESY1 M1 PO (17:54)
[2016-06-16] MEDS ORDERED: PERPHENAZINE8 M1 PO (18:00)
[2016-06-16 19:38] VITALS: BP 156/90
--- NOTE | 2016-06-16 22:16 | ED PSYCHIATRIST/APRN CONSULT ---
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 He has been evaluated in the emergency room. Is known to us from previous inpatient treatment. Is a obese male, and hospital issued gown and pants laying on a stretcher in the emergency room hallway. His speech is soft, slow, he becomes breathless while speaking. He is complaining of feeling hopeless, helpless, useless. He feels like his life is not worth living and has suicidal ideation with plan to overdose on pills. The patient denies auditory/visual hallucinations, his thought process, even though slowed down, is linear and goal directed. There is no delusional ideation noted or reported. It is our clinical judgment that he needs inpatient stabilization for safety.
--- NOTE | 2016-06-17 06:26 | NUR ---
PT FOUND BED UNCOMFORTABLE. PT UP X 2 TO THE TOILET. PT UNABLE TO SLEEP IN THE SAEID-CHAIR.
[2016-06-17 07:38] VITALS: BP 131/94
--- NOTE | 2016-06-17 11:42 | NUR ---
PT IS STABLE WITH FLAT/CONSTRICTED AFFECT, PRESENT WTIHIN THE COMMUNITY, DOES NOT ENGAGE/INTERACT WITH OTHERS, QUIET, VAGUE RESPONSES, SLOW TO RESPOND. PT ATTENDED PLANNING MEETING AND STATED THAT HE WOULD LIKE TO "FIND WAYS TO COPE WITH DEPRESSION". VS ARE STABLE AND DENIES ANY SI/HI TO THIS MHW.
[2016-06-17 12:12] VITALS: BP 149/89
--- NOTE | 2016-06-17 12:57 | History & Physical ---
General Information and HPI MD Statement: I have seen and personally examined DORY ANDREA and documented this H&P. The patient is a 51 year old M who presented with a patient stated chief complaint of suicidal ideation. Source of Information: patient Exam Limitations: no limitations History of Present Illness: 51-year-old male with past medical history significant for hypertension, prediabetes, hypothyroidism, morbid obesity, anxiety, chronic pain disorder, depression, psychosis (command auditory hallucination), schizo affective disorder who is admitted to Inpatient Psychiatry for suicidal ideation as well as homicidal ideation. Patient has been feeling very depressed lately. He attempted suicide by overdosing on aspirin pills. He is currently living in a penitentiary. He denies use of any drugs. He denies use of alcohol or smoking. He currently denies any aches or pains. No fevers, no coughing, no abdominal pain, nausea or vomiting. He wants to go home. Allergies/Medications Allergies: Coded Allergies: bupropion (From WELLBUTRIN) (Severe, UNKNOWN PER PT 04/29/16) haloperidol (From HALDOL) (UNKNOWN PER PT 04/29/16) lithium (?ALLERGY 04/29/16) Home Med list Aripiprazole (Abilify) 30 MG TABLET 1 TAB PO DAILY MENTAL HEALTH (Reported) Aspirin (Ecotrin*) 81 MG TABLET.DR 1 TAB PO DAILY HEART/BLOOD (Reported) Atorvastatin Calcium (Lipitor) 40 MG TABLET 1 TAB PO QPM CHOLESTEROL ( Reported) Benztropine Mesylate 1 MG TABLET 1 TAB PO BID PREVENT SIDE EFFECTS (Reported) Cholecalciferol (Vitamin D3) (Vitamin D) 1,000 UNIT TABLET 1 TAB PO DAILY SUPPLEMENT (Reported) Divalproex Sodium (Depakote ER) 500 MG TAB.ER.24H 2,000 MG PO PM MOOD STABILITY (Reported) Famotidine (Pepcid) 20 MG TABLET 1 TAB PO BID GI (Reported) Lactobacillus Acidophilus (Acidophilus) 1 EACH CAPSULE 1 CAP PO DAILY PROBIOTIC (Reported) Levothyroxine Sodium 75 MCG TABLET 75 MCG PO DAILY THYROID PROBLEMS (Reported ) Metformin HCl 500 MG TABLET 1 TAB PO BID DM (Reported) Metoprolol Tartrate 25 MG TABLET 1 TAB PO BID HEART/BP (Reported) Nystatin 100,000 UNIT/GRAM CREAM..G. 1 GM EXT BID FUNGAL RASH Perphenazine 8 MG TABLET 3 TAB PO QPM MENTAL HEALTH (Reported) Perphenazine 8 MG TABLET 24 MG PO AT BEDTIME voices, to clear thoughts Sertraline HCl (Zoloft) 100 MG TABLET 200 MG PO DAILY DEPRESSION (Reported) Tamsulosin HCl (Flomax) 0.4 MG CAP.ER.24H 0.4 MG PO DAILY (Reported) Past History Travel History Traveled to [place] past 21 day No Medical History Neurological: migraine EENT: NO TEETH, NO DENTURES Cardiovascular: hypertension Respiratory: NONE Gastrointestinal: NONE Hepatic: NONE Renal: NONE Musculoskeletal: ARTHRITIS HEEL SPUR Psychiatric: anxiety, chronic pain disorder, depression, psychosis (command auditory hallucination), schizo affective disorder Endocrine: hyperthyroidism, PRE-DIABETIC (on oral hypoglycemic regimen) Blood Disorders: NONE Cancer(s): NONE 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 Home Primary Language: Estonian ETOH Use: denies use Illicit Drug Use: denies illicit drug use Functional Ability ADLs Independent: dressing, eating, toileting, bathing. Ambulation: independent IADLs Independent: shopping, housework, finances, food prep, telephone, transportation , medication admin. Review of Systems Review of Systems Constitutional: Reports: see HPI. EENTM: Reports: see HPI. Cardiovascular: Reports: see HPI. Respiratory: Reports: see HPI. GI: Reports: see HPI. Genitourinary: Reports: see HPI. Musculoskeletal: Reports: see HPI. Neurological/Psychological: Reports: see HPI. Exam & Diagnostic Data Last 24 Hrs of Vital Signs/I&O Vital Signs Date Time Temp Pulse Resp B/P Pulse O2 O2 Flow FiO2 Ox Delivery Rate 06/17 1212 70 149/89 06/17 0930 95.4 66 15 131/94 06/17 0929 95.4 66 15 131/94 06/17 0738 95.4 66 131/94 06/16 2131 80 156/90 06/16 1938 97.3 80 156/90 06/16 1642 97.6 84 147/74 06/16 1552 96.7 76 15 147/95 95 Room Air Room Air 06/16 1314 97.4 76 18 121/63 96 Intake & Output 06/17 1600 06/17 0800 06/17 0000 Intake Total Output Total Balance Patient 500 lb Weight Physical Exam General Appearance Alert, Oriented X3, Cooperative, No Acute Distress Skin No Rashes HEENT PERRLA Neck Supple Cardiovascular Regular Rate, Normal S1, Normal S2 Lungs Clear to Auscultation Abdomen Normal Bowel Sounds, Soft, No Tenderness, Obese Neurological Cranial Nerves II through XII: intact Extremities No Edema Last 24 Hrs of Labs/Oscar: Laboratory Tests 06/14/16 1338: Urine Opiates Screen < 100.00, Methadone Screen < 40, Barbiturate Screen < 60, Ur Phencyclidine Scrn < 6.00, Amphetamines Screen < 100, U Benzodiazepines Scrn < 85, Urine Cocaine Screen < 50, Urine Cannabis Screen < 5.00 06/14/16 1315: Anion Gap 11, Estimated GFR > 60, BUN/Creatinine Ratio 13.8, Glucose 177 H, Calcium 9.3, Total Bilirubin 0.4, AST 44, ALT 103 H, Alkaline Phosphatase 62, Total Protein 7.0, Albumin 3.9, Globulin 3.1, Albumin/Globulin Ratio 1.3, CBC w Diff NO MAN DIFF REQ, RBC 4.96, MCV 85.3, MCH 28.4, RDW 14.6 H, MPV 7.6, Gran % 58.3, Lymphocytes % 31.1, Monocytes % 8.4, Eosinophils % 1.8, Basophils % 0.4, Absolute Granulocytes 4.6, Absolute Lymphocytes 2.5, Absolute Monocytes 0.7 H, Absolute Eosinophils 0.1, Absolute Basophils 0, PUBS MCHC 33.3, Valproic Acid 62.3, Serum Alcohol < 10.0 Assessment/Plan Assessment: 51-year-old male with past medical history significant for hypertension, prediabetes, hypothyroidism, morbid obesity, anxiety, chronic pain disorder, depression, psychosis (command auditory hallucination), schizo affective disorder who is admitted to Inpatient Psychiatry for suicidal ideation as well as homicidal ideation. Patient has been started on metformin for his history of prediabetes, levothyroxine for his history of hypothyroidism as well as beta marvin for his history of hypertension. His vital signs are stable. His fingerstick is acceptable. I will leave the psych management up to psychiatry. He is also on statin for history off hyperlipidemia. Patient does have a primary care doctor as an outpatient and he should follow-up with his primary care doctor for the management off chronic medical issues. As Ranked By This Provider Problem List: 1. Depression 2. Diabetes 3. Schizoaffective disorder 4. HTN (hypertension) 5. Hypothyroid Miscellaneous Miscellaneous Documentation Attending Case Discussed With: Karla Schmitt M.D. Primary Care Physician: TEMITOPE PATINO MD Patient sees these Specialists Psychiatrist. Level of Patient Care: ANUEL López
--- NOTE | 2016-06-17 13:33 | SOCIAL WORKER PROG NOTE PSYCH ---
Social Work Progress Note Progress Note PETRA met with patient for the first time today since re-admission to the hospital. Patient reports feeling very depressed today but denies suicidal thoughts. Patient states that he does not believe he can care for himself anymore and wishes to reside somewhere other then his assisted. Patient states that he recently stayed at this [facility] in [facility] for 2 weeks but then started to experience suicidal thoughts and was taken to [facility]. He was not admitted to their unit and then ended up returning back to his assisted. 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
[2016-06-17 16:05] VITALS: BP 144/79
--- NOTE | 2016-06-17 17:45 | CPS MD/APRN INITIAL ASSE PSYCH ---
Psychiatric Admission Transmission Engineer's Note Reviewed: Yes Patient Seen and Examined: Yes Identifying Information: This is the first admission since only 05/06/2016 (and the fifth in just the past year for a 51-year-old single/never childless man who has been living for some time in an apartment in a supervised housing program in [place], [place]. , and longtime unemployed/on disability. Chief Complaint: "I will kill myself by taking pills." Reaction to Hospitalization: seeking admission to hospital History of Present Illness Onset of Illness: Patient reports recrudescence of suicidal ideation/preoccupation and planning ( to overdose on "as may aspirin as it takes...") building up since most recent [facility] disharge little over a month ago. Circumstances Leading to Admission: Suicidal ideation with plan to overdose. Problem(s) Justifying Need for Admission: active suicidality Other HPI: Patient had been recently admitted to [facility], 04/29-05/06/2016 (see discharge summary in electronic medical record), reporting hearing voices telling him to hurt/kill others. He had most recently been admitted to [facility] in 01/2016. The major change during the last [facility] admission was to change longtime treatment with Abilify (30mg/day at that time) with Trilafon, 24mg/day. However, following discharge, patient claims his outpatient treating psychiatrist, Dr. Santos, switched him back over to Abilify, discontinuing the Trilafon. Past Psychiatric History Past Diagnosis(es)- if any: Schizoaffective Disorder, Depressed Migraines Hypertension Hypothyroidism borderline diabetes type II Morbid Obesity Arthritis with associated chronic pain Past Precipitating Factors- if any: Patient has become increasingly dissatisfied with his current living situation. In the summer of 2015, he entered a year-long religiously affiliated residential program operating at a farm in [facility] but left that program after only two weeks, saying he was suicidal and being sent to a local E.R. Patient told me that one of the problems he had encountered at this residential program was that no Adventist services were allowed there, and patient is quite faithful to his methodist affiliation. - Include inpatient and outpatient treatment Treatment History: (see the electronic medical record, multiple admission assessments, discharge summaries therein) Patient has been receiving his outpatient psychiatric services from the [facility] (Dr. Nathalie Santos). History of Suicide Attempts or Gestures multiple, mostlly overdoses but at least once thought of hanging himself Substance Abuse History: denied Allergies: Coded Allergies: bupropion (From WELLBUTRIN) (Severe, UNKNOWN PER PT 04/29/16) haloperidol (From HALDOL) (UNKNOWN PER PT 04/29/16) lithium (?ALLERGY 04/29/16) Home Med List: Abilify, 30mg HS (recently changed back from Trilafon, 24mg HS) Cogentin, 1mg/day Depakote ER, 2,000mg daily Zoloft, 200mg daily in AM and: Ecotrin, 81mg daily Metformin, 500mg 2x/day, at 8am and 5pm levothyroxine, 75mcg/day Flomax, 0.4mg/day Pepcid, 20mg 2x/day Vitamin D3, 2,000 units/day probiotic, i capsue daily Nystatin cream, apply to skin 2x/day (lisinopril/hydrochlorthiazide, 10/12.5mg had been discontinued on 04/29/2016 [facility]) - Include any medical condition(s) that may - impact the patient's recovery/remission Past History Medical History Neurological: migraine EENT: NO TEETH, NO DENTURES Cardiovascular: hypertension Respiratory: NONE Gastrointestinal: NONE Hepatic: NONE Renal: NONE Musculoskeletal: ARTHRITIS HEEL SPUR, Morbid Obesity Psychiatric: anxiety, chronic pain disorder, depression, psychosis (command auditory hallucination), schizo affective disorder Endocrine: hypothyroidism, PRE-DIABETIC (on Metformin for this) (on oral hypoglycemic regimen) Blood Disorders: NONE Cancer(s): NONE 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 Other Medical Hx: patient is seriously morbidly obese; he has in the past tried to be accepted for gastric bypass surgery but been "rejected" History of MRSA: No History of VRE: No History of CDIFF: No Isolation History: Standard Surgical History Surgical History: none Psychiatric Family/Social Hx Family History Psychiatric Illness: none reported Substance Use: none reported Suicides: none reported Other Family History: noncontributory at this time Social History Living Situation: (see above under Identifying Information) Significant Relationships (family/friends): reported to have supportive family and methodist community Education: high school; would like to take college courses at [employer] ( philosophy and theology) Vocation/Occupation: disabled many years Legal: denied Other Social History: noncontributory at this time Healthly Behaviors Screening Tobacco Screening Tobacco Use from ED Docu: Never used - If tobacco counseling indicated - the following topics are required. - #1 Recognizing dangerous situations. - #2 Coping Skills. - #3 Basic information about quitting. Status of Tobacco Cessation Counseling: N/A B/C NO TOB USE Cessation Med Status: No Tobacco Use last 30d Alcohol Screening - ETOH screen POS if BAL >=80 or Audit-C>= M4/F3 Audit-C Score from Diag Assess: 0 Blood Alcohol Level: SHAYE = less than 10.0 Alcohol Use Screening Results: Neg per Audit C &/or BAL - If ETOH counseling indicated - the following topics are required. - #1 Express concern about the patient's - drinking at unhealthy levels, include informing - of national norms for moderate drinking: - men <= 14 drinks/week, max 4 drinks/occasion - women <= 7 drinks/week, max 3 drinks/occasion - #2 Providing feedback, including linking alcohol to - negative physical effects (liver injury, hypertension) - negative emotional effects (relationship problems and - depression) - negative occupational consequences (reduced work - performance) - #3 Advising the patient to abstain from alcohol or - to drink below national norms for moderate drinking - (as listed above). Status of ETOH Use Counseling: N/A B/C NO ETOH Use Metabolic Screening - Screen if on a Neuroleptic Medication - Metabolic screening should include: - Blood Pressure, BMI, Glucose or Hgb A1c, & a - Lipid profile from within the past 365 days. Metabolic Screening () Not Applicable, patient not on a neuroleptic. OR ([X]) Patient on a neuroleptic(s) . Enter below results for Glucose or Hemoglobin A1C, and lipid panel if obtained during the last 365 days. BMI: 76.000 Blood Pressure: 148/99 Laboratory Results (If applicable): hemoglobin A1c = 7.3% (all drawn on 04/30/2016) cholesterol = 197 triglycerides = 276 HDL = 54 LDL = 88 Exam and Plan Mental Status Examination Ambulation Status: slowly and with difficulty due to morbid obesity but without assistance Appearance: morbidly obese and unkempt Attitude towards examiner: positive Psychomotor activity: slowed down (contributed to by weight) Behavior: unreactive, lacking spontaneity Quality of speech: soft, low and slow Affect: constricted to blunted Mood: depressed, despondent Suicidal Ideation: acknowledged active suicidality 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 and able/willing to give safety pledge/promise for here [place] H[place] Ideation: acknowledged in the past but not presently Hallucinations: not currently but recently Paranoid/Delusional Material: no current evidence of overt/nellie paranoia or active delusions Difficulties with thought organization: very slowed down Insight: poor Judgment: fair Orientation: full Cognition: very slowed down Memory Function: impaired or not trying Estimate of intellectual functioning: average Assets/Strengths Patient Identified Assets/Strengths: --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 Recently, anti-psychotic medication was changed from Abilify to Trilafon due to ineffectiveness of the former and the greater likelihood that the second generation drug will further worsen problems with weight and glucose management. It makes sense to restart Trilafon at this time and possibly titrate dose upward. Likewise, patient has been on Depakote over an extended period of time; its association with significant weight gain is well-known and, again, this medication does not seem to have been particularly beneficial. Patient cannot tolerate Allgood which has been tried in the past. I see no evidence going back to 2000 in our records that patient has ever been on Lamictal in the past, and he has no memory if same; this medication is not associated with significant weight gain and is actually more effective in prophylasis of depressive episodes in bipolar/schizoaffective disorders. - Include all active medical diagnosis that require tx DSM 5 Diagnosis(es): Schizoaffective Disorder, Depressed Type, with hx of psychotic features ( including command type auditory hallucinations) - Initial Tx Plan for Active Psych & Medical Conditions Treatment Plan: --we will reinstate treatment with Trilafon --we will discontinue Abilify --we will taper away Depakote ER --following d/c of Depakote we will slowly introduce Lamictal and begin upward titration of this drug --we will continue Zoloft at current dose for now --we will attempt to organize a family meeting with any interested/involved relatives --we will refer patient back to his supervised apartment and treatment with GBM (Dr. Santos) - Factors that would help patient function - in a less restrictive setting. Factors: --tolerance of medication changes/adjustments --initial positive response to med changes
[2016-06-17 20:07] VITALS: BP 140/88
--- NOTE | 2016-06-17 21:11 | NUR ---
PT IS CALM, COOPERATIVE WITH STAFF AND PEERS, AND COMPLIANT WITH UNIT RULES. PT IS OFTEN IN [place]IE[place], THOUGH SPENDS THE MAJORITY OF THE TIME TO SELF, NOT INTERACTING WITH OTHERS. MOOD IS STABLE, AFFECT IS FLAT/CONSTRICTED, COMMUNICATION IS ORGANIZED AND NORMAL IN ALL RESPECTS, AND APPETITE IS NORMAL. PT DENIES SI AT THIS TIME.
--- NOTE | 2016-06-18 02:56 | NUR ---
Slept well, no complaints offered.
[2016-06-18 07:57] VITALS: BP 138/86
--- NOTE | 2016-06-18 11:19 | SOCIAL WORKER PROG NOTE PSYCH ---
Social Work Progress Note Progress Note Met with Chon he was in the kitchen (eating)? He was in group this morning. He stated he slept good, he denied SI/HI, no AH/VH. He stated he "feels better, I just needed time to gather my thoughts." He wants to discharge and go back to his senior living. He stated he sees Dr. Hector at [facility] and a therapist - Taylor. He stated Dr. Hector told him if he is hospitalized again he may not treat him anymore. I explained it is possible he is frustrated he feels he may not be helping him. 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 He goes to [facility] and his sister lives near to the rastafarian. He said he takes the bus sometimes to go to rastafarian and visit his sister. Chon smelled of urine - it seemed he had an accident as his pants seemed to have an old stain. Encouraged him to wash his clothes, and informed CARLOS Escoto.
--- NOTE | 2016-06-18 12:03 | NUR ---
PT IS COMPLIANT AND COOPERATIVE WITH UNIT RULES. PT IS OUT IN COMMUNITY INTERACTING AT TIMES WITH STAFF AND PEERS. PT IS ATTENDING ALL GROUPS AND THAT WAS HIS GOAL THIS MORNING. PT MOOD IS ABLE WTIH A FLAT AFFECT. PT DENIES SI THGOUHTS HIS MORNING.
[2016-06-18 12:23] VITALS: BP 148/99
[2016-06-18 16:00] VITALS: BP 151/82
--- NOTE | 2016-06-18 19:00 | CP SOUTH PROGRESS NOTE PSYCH ---
Psych (Inpt) Progress Note Progress Note Include the following elements, when applicable: Involvement in the active treatment of the patient with behavioral observations of the patient and the patient's response to the treatment. Review of the ongoing treatment process in the context of the treatment plan. Indication of how multi-disciplinary staff members are carrying out the treatment plan. Plans for future interventions and recommendations for revision of the treatment plan. Liaison with other physicians/providers. Progress Note: PSYCHIATRIST NOTE, 06/18/2016: I discussed this patient's progress thus far, current mental status, treatment and discharge planning with staff team today in the daily morning ITTM and also met with him again myself in individual session. We went over both of the significant medication changes I have recommended, the switch back to Trilafon (from Abilify) and tapering away of Depakote ER in favor of a first time trial on Lamictal; patient is in agreement with these changes and knows these will take at least a few days to implement under inpatient supervision. Patient also agreed to give permission for a discussion with his outpatient psychiatrist, Dr. Santos of [facility], of the above med changes in the hope that he will maintain them for an adequate trial period. These changes have been made to reduce risks of further potentially lifethreatening weight gain and further diabetic deterioration, as well as due to the conclusion that Abilify and Depakote have not shown particularly effective in stabilizing mood and reducing psychotic symptoms over extended trials. Patient notes improvement in mood ("I just needed time to sort things out...") and even smiled occasionally with me today. We also spoke about his previous inquiry into gastric bypass surgery; patient said he had been told that before he would be considered he "would need to have counseling."
[2016-06-18 19:37] VITALS: BP 150/96
--- NOTE | 2016-06-18 21:07 | NUR ---
PT IS VISIBLE ON UNIT, MOSTLY STAYING TO HIMSELF WHEN OUT IN COMMUNITY. PT OFTEN WILL ISOLATE IN ROOM, NOT MUCH INTERACTION WITH PEERS. COOPERATIVE AND COMPLIANT WITH STAFF. PT AT TIMES NEEDS ENCOURAGEMENT TO TEND TO ADL'S. PT DID SHOWER THIS EVENING. NO COMPLAINTS OR SI REPORTED. PT HAS A STABLE MOOD AND FLAT AFFECT.
--- NOTE | 2016-06-19 07:04 | NUR ---
PATIENT SLEPT ALL NIGHT, HALF IN BED AND HALF IN HIS SAEID CHAIR.
[2016-06-19 07:46] VITALS: BP 168/95
--- NOTE | 2016-06-19 10:47 | SOCIAL WORKER PROG NOTE PSYCH ---
See Addendum Social Work Progress Note Progress Note Patient presents depressed today and is endorsing suicidal thoughts with no specific plan. Patient found sitting in his chair in his room during group time, sleeping upright. Patient reports not feeling well today and feeling very sad. Patient signed WENDY for his medical doctor, Dr. Villa ) for Dr. Ayers to speak to him to discuss possibility of gastric bypass surgery with [facility]. Appointments are in place with SEN Vazquez and Dr. Hector at [facility] for when patient discharges home. Patient will meet with both Taylor and Dr. Hector on 06/15/16 @10:30am at [address] [place] [address]. Taylor informed me that she will be transferring from her position at [facility] and is planning to inform patient of this next week during their meeting.
--- NOTE | 2016-06-19 14:09 | NUR ---
PT NOT VISIBLE MUCH IN THE MILIEU. HE DID COME TO PLANNING MEETING AND CAME UP WITH THE GOAL TO FEEL BETTER. PT HAS BEEN ENCOURAGED TO ATTEND GROUPS, BUT HAS ONLY BEEN IN PLANNING MEETING TODAY. HE HAS NO INTERACTIONS WITH PEERS, AND MINIMALLY INTERACTS WITH STAFF. PT DENIES THOUGHTS OF HURTING SELF WHEN ASKED.
[2016-06-19 15:59] VITALS: BP 138/78
[2016-06-19 19:45] VITALS: BP 145/78
--- NOTE | 2016-06-19 20:47 | NUR ---
PT IS CALM, COOPERATIVE WITH STAFF AND PEERS, AND COMPLIANT WITH UNIT RULES. OFTEN IN MILIEU, THOUGH LIMITED INTERACTION WITH OTHERS; ISOLATIVE AND WITHDRAWN. MOOD IS STABLE, AFFECT IS FLAT/CONSTRICTED, COMMUNICATION IS ORGANIZED AND APPEARS NORNAL IN ALL RESPECTS, AND APPETITE IS NORMAL. PT DENIES SI AT THIS TIME.
--- NOTE | 2016-06-19 21:49 | CP SOUTH PROGRESS NOTE PSYCH ---
Psych (Inpt) Progress Note Progress Note Include the following elements, when applicable: Involvement in the active treatment of the patient with behavioral observations of the patient and the patient's response to the treatment. Review of the ongoing treatment process in the context of the treatment plan. Indication of how multi-disciplinary staff members are carrying out the treatment plan. Plans for future interventions and recommendations for revision of the treatment plan. Liaison with other physicians/providers. Progress Note: PSYCHIATRIST NOTE, 06/19/2016: I discussed this patient's progress to date, current mental status, treatment and discharge planning with staff team today in the daily morning ITTM and also met with him again myself in individual session. Patient is sleeping better at night, finding it more comfortable in the gerichair than his bed. We spoke some more about the issue of possible bariatric surgery; patient expressed his willingness to go over the issue with his PCP in [place], Dr. Villa, as well as Dr. Santos, his outpatient psychiatrist at [facility] but is still afraid that the latter will "fire [him] for getting admitted to the hospital again." Patient is unhappy where he is living but has no concrete/practical ideas about how he could improve his living situation other than "going into a half-way." Patient is more spontaneous and mood is slowly improving thus far despite tapering of Depakote dose; patient to start initial dose of Lamictal this weekend.
[2016-06-20 07:57] VITALS: BP 181/111
[2016-06-20 08:36] VITALS: BP 158/88
[2016-06-20 12:34] VITALS: BP 146/95
--- NOTE | 2016-06-20 13:22 | SOCIAL WORKER TX PLAN PSYCH ---
Treatment Plan - Please Document: - Evidence that there is ongoing collaboration between - the patient and the interdisciplinary team, - including the patient's active participation and - responsibility for engaging in the treatment regimen, - and that the treatment plan is individualized and - relevant to the patient's conditions. - Treatment plan should reflect documentation indicating - that all active therapeutic efforts are included. Strengths/Capabilities: Supportive family Able to articulate needs/wants Asking for help Connected to outpatient treatment Likes to read and listen to music Physical Limitations (Interventions): Morbid obesity Patient Identified Trmt Goals: " I want to not be sad." Discharge Plan: IOP Problem/Goals #1 Problem #1: suicidal ideation Goal (Short Term): Today I will attend 2 groups Today I will identify 2 stressors Today I will identify 2 positive supports Today I will work on recognizing 3 emotions I am feeling Goal (Residential): Today I will attend 2 groups Today I will identify 2 stressors Today I will identify 2 positive supports Today I will work on recognizing 3 emotions I am feeling Interventions: Learn ways to manage depressive symptoms accordingly and identify positive supports to manage life stressors and mood fluctuations. Modalities: Encourage groups, education on depression, provide CBT treatment, family meeting. DSM5/PS Stressors/Medical Prob Diagnosis' (DSM 5, Stressors, Medical): Schizoaffective Disorder, Depressive Type F25.1 Current GAF: 24 Treatment Team - Responsibilities of members of the treatment team include: - Medication Management- MD or WARDROBE SUPERVISOR - Medication Administration and Monitoring- Nurse - Group Therapy- Occupational Therapist - 1:1 Therapy,Disch Planning,family involvement-Yard Jacker
--- NOTE | 2016-06-20 13:24 | SOCIAL WORKER PROG NOTE PSYCH ---
Social Work Progress Note Progress Note Patient presents today with brighter mood and affect. Patient smiling and laughing with me at times during our meeting for the first time since he was admitted. Patient seen attending groups on the unit today as well. Patient reports feeling better today, less depressed and denies SI. Patient is aware that we are tentatively planning for discharge on 06/25/15. He is going to speak to either his brother or sister about transportation home. He is also aware that he has appointment with Dr. Saravia on Thursday and stated that he will likely attend IOP as well at [facility]. Patient presented in high spirits today, conversing more then usual and with a generally better presentation.
--- NOTE | 2016-06-20 14:26 | NUR ---
PT VISIBLE IN THE MILIEU TODAY. HIS GOAL WAS TO SEE THE [facility], AND ATTEND GROUPS. PT HAS BEEN GOING TO GROUPS THROUGOUT THE DAY. HE DOES NOT INTERACT MUCH WITH HIS PEERS, BUT DOES RESPOND TO STAFF WHEN HE IS SPOKEN TO. IN THE MILIEU PT HAS BEEN COMPLIANT WITH THE RULES OF THE UNIT, AND DENIES THOUGHTS OF HURTING HIMSELF WHEN ASKED.
[2016-06-20 16:05] VITALS: BP 138/99
--- NOTE | 2016-06-20 18:48 | CP SOUTH PROGRESS NOTE PSYCH ---
Psych (Inpt) Progress Note Progress Note Include the following elements, when applicable: Involvement in the active treatment of the patient with behavioral observations of the patient and the patient's response to the treatment. Review of the ongoing treatment process in the context of the treatment plan. Indication of how multi-disciplinary staff members are carrying out the treatment plan. Plans for future interventions and recommendations for revision of the treatment plan. Liaison with other physicians/providers. Progress Note: PSYCHIATRIST NOTE, 06/20/2016: I discussed this patient's progress to date, current mental status, treatment and discharge planning with staff team today in the daily morning ITTM , and I met with him again myself in individual session. As noted earlier today by Lucinda Lee LCSW, patient continued to be in a rather improved mood which he himself referred to as "upbeat." This seems a hopeful trend; I just hope it doesn't presage a swing into a mixed or hypomanic state contributed to by my tapering of Depakote ER; I checked valproic acid level this morning to be confident it is falling rapidly enough for me to introduce Lamictal; concentration was only 22mcg/ml; patient will begin on Lamictal, 25mg HS tomorrow, 06/21/2016. I have increased dose of Trilafon tonight from 24mg to 32mg HS.
[2016-06-20 20:19] VITALS: BP 147/97
--- NOTE | 2016-06-20 21:38 | NUR ---
PT SITS IN AND WATCHES TV. PT IS COMPLIANT. PT DENIES ANY THOUGHTS OF SI AT THIS TIME.
[2016-06-21 07:58] VITALS: BP 139/91
--- NOTE | 2016-06-21 09:39 | CP SOUTH PROGRESS NOTE PSYCH ---
Psych (Inpt) Progress Note Progress Note Include the following elements, when applicable: Involvement in the active treatment of the patient with behavioral observations of the patient and the patient's response to the treatment. Review of the ongoing treatment process in the context of the treatment plan. Indication of how multi-disciplinary staff members are carrying out the treatment plan. Plans for future interventions and recommendations for revision of the treatment plan. Liaison with other physicians/providers. Progress Note: Stated that he is ok, Im feeling much better than when I came in, the depression is better.1/10 on depression scale. Looking forward to family meeting w/ siblings on Thursday. Lives in transitional living home; stated that it unable to care for himself physically. Stated that he is aware of overeaters anonymous, that there is a meeting on Saturdays. We discussed past diet/weight loss programs, he has been poorly motivated to participate. No issues w/ his medication. MSE: middle aged man, fair hygiene and grooming. Appropriate eye contact. Fine tremor noted. Psychomotor slowing. Affect constricted to blunted, mood neutral to dysphoric, though he states that he is good. Speech is soft volume, rate and rhythm. Thought process is linear. Thought content negative for depressed mood, no thoughts to harm himself/others. Denied hallucinations. Fair insight; fair judgment. A: 51 y/o man w/ hx psychotic illness, admited w/ depression and voices to harm himself/others. Morbidly obese, w/ difficulty w/ self care; poor living situation as recent stressors. Clinically stabilizing w/ less depression. Risk: Hx significant psychiatric sx, significant medical problems (obesity) which elevate his chronic risk of harm to self/others. Recent suicidal thoughts, depression as more acute risk factors; but overall acute risk of violence to self/others is low b/c stabilizing, denies SI; participating in tx. P: Target risk factors/active sx (residual depressive sx) w/education, ongoing family involement (family meeting next week); discussed weight loss to do 10 arm raises 3x/day, to walk the full length of unit before every meal and bed; and walk around unit more frequently in general. Support for weight loss, discussion of outpatient weight loss support groups. Medication, engage in groups, milieu therapy. No medication changes, tolerating new med w/o issue.
--- NOTE | 2016-06-21 12:10 | NUR ---
PT REPORTED THAT HIS GOAL TODAY WAS TO BE MINDFUL. HE SPOKE ABOUT THE THINGS HE HAS TO BE GRATEFUL FOR IN GROUP. HE IS COMPLIANT WITH HIS MED REGIME. ENJOYS READING AND WATCHING TV FOR LEISURE TIME. HE DENIES ANY THOUGHTS OF SUICIDE OR SELF HARM AT THIS TIME
[2016-06-21 12:24] VITALS: BP 142/73
[2016-06-21 16:06] VITALS: BP 145/95
[2016-06-21 19:44] VITALS: BP 142/79
--- NOTE | 2016-06-21 20:20 | DISCHARGE SUMMARY REPORT-PSYCH ---
Visit Information Visit Dates/Diagnosis' Discharge Date: 06/21/16 Psy Discharge Primary Diag: schizoaffective disorder Hospital Course Course Allergies: Coded Allergies: bupropion (From WELLBUTRIN) (Severe, UNKNOWN PER PT 04/29/16) haloperidol (From HALDOL) (UNKNOWN PER PT 04/29/16) lithium (?ALLERGY 04/29/16) Discharge HBIPS - Tobacco Use Treatment Offered - EtOH/Drug Use D/O Treatment Offered Metabolic Screening - Screen if on a Neuroleptic Medication - Metabolic screening should include: - Blood Pressure, BMI, Glucose or Hgb A1c, & a - Lipid profile from within the past 365 days. Discharge Instructions General Discharge Information Discharge Medications: Discharge Medications- (Dose, route, freq, indication): - Screen if on a Neuroleptic Medication - Metabolic screening should include: - Blood Pressure, BMI, Glucose or Hgb A1c, & a - Lipid profile from within the past 365 days.
[2016-06-21] MEDS ORDERED: LAMICTAL25 M1 PO (20:26)
[2016-06-21] MEDS ORDERED: BENZTROPINE ME0.5 M1 PO (20:29)
--- NOTE | 2016-06-21 20:57 | NUR ---
PT IS CALM, COOPERATIVE WITH STAFF AND PEERS, AND COMPLIANT WITH UNIT RULES. PT IS BOTH IN AND OUT OF MILIEU, APPEARS LETHARGIC AT TIMES, SLEEPING IN PT ROOM FOR PERIODS OF TIME. ISOLATIVE AND WITHDRAWN, LIMITED INTERACTION WITH OTHERS. MOOD IS STABLE, AFFECT IS FLAT/CONSTRICTED, COMMUNICATION IS ORGANIZED AND APPEARS NORMAL IN ALL RESPECTS, AND APPETITE IS NORMAL. PT DENIES SI AT THIS TIME.
--- NOTE | 2016-06-22 05:25 | NUR ---
PT DID SLEEP. PT UP TO TOILET X 2.
[2016-06-22 07:38] VITALS: BP 138/95
[2016-06-22 12:00] VITALS: BP 138/82
--- NOTE | 2016-06-22 12:25 | NUR ---
PT IS CALM AND COOPERATIVE. HIS AFFECT IS CONSTRICTED. HE IS IN THE COMMUNITY GOING TO GROUPS OR IN HIS ROOM READING. HE ENJOYS READING THE BIBLE. HE DENIED SUICIDAL THOUGHTS OR THOUGHTS OF SELF HARM. HE IS COMPLIANT WITH HIS MED REGIME
--- NOTE | 2016-06-22 13:27 | CP SOUTH PROGRESS NOTE PSYCH ---
Psych (Inpt) Progress Note Progress Note Include the following elements, when applicable: Involvement in the active treatment of the patient with behavioral observations of the patient and the patient's response to the treatment. Review of the ongoing treatment process in the context of the treatment plan. Indication of how multi-disciplinary staff members are carrying out the treatment plan. Plans for future interventions and recommendations for revision of the treatment plan. Liaison with other physicians/providers. Progress Note: Said that he feels happy and peaceful today, mood is improved. Said that he is excited to go home so he can go to [place] next week. Family is coming tmr for family meeting. Said he did some arm raises yesterday before bed. Slept well. MSE: middle aged man, adequate hygiene and grooming. Obese. Fair eye contact. Fine tremor at times in finger. Affect constricted; mood euthymic.; said that he feels happy. Speech is wnl. Thought process is goal directed. Thought content negative for depressed mood, no thoughts to harm himself/others.Not internally preoccupied. No evidence of delusions. Denied hallucinations. Fair insight; fair judgment. A: 51 y/o man w/ hx psychotic illness, admited w/ depression and voices to harm himself/others. Mood is improved today. Risk: Low risk acutely due to improved mood, no recent suicidal thoughts, future oriented (wants to go to [employer] next week, see his family and to see his visitor today). P: Continue current plan of care; encouraged to continue doing arm raises and walking hallways. No medication changes.
[2016-06-22 16:11] VITALS: BP 146/92
--- NOTE | 2016-06-22 17:34 | NUR ---
Patient is A&O X 3, compliant with medication and group therapies. patient continues to be reclusive/ isolates in his room mostly on his Joanna-chair, has minimal interaction with other peers and staff memebers. Mood is stable with Euthymic affect, vital sign and blood sugar are stable and within the acceptable range, denies thought of self-harm and to someone else.
[2016-06-22 19:59] VITALS: BP 145/88
--- NOTE | 2016-06-22 20:56 | NUR ---
PT IS CALM, COOPERATIVE WITH STAFF AND PEERS, AND COMPLIANT WITH UNIT RULES. BOTH IN AND OUT OF MILIEU, WHILE IN MILIEU LIMITED INTERACTION WITH OTHERS; ISOLATIVE AND WITHDRAWN. SLIGHTLY LETHARGIC, SLEEPING AT TIMES DURING THE EVENING. MOOD IS STABLE, AFFECT IS FLAT/CONSTRICTED, COMMUNICATION IS ORGANZIED AND APPEARS NORMAL IN ALL RESPECTS, AND APPETITE IS NORMAL. PT DENIES SI AT THIS TIME.
--- NOTE | 2016-06-23 06:56 | NUR ---
PT UP X 2 TO TOILET- NOT WET IN AM. PT APPEARED TO SLEEP WELL IN SAEID-CHAIR.
[2016-06-23 08:13] VITALS: BP 137/89
--- NOTE | 2016-06-23 11:52 | NUR ---
PT REPORTED HIS MOOD WAS "GOOD" AND HE DENIED THOUGHTS OF SUICIDE OR SELF HARM. HE IS GOING TO GROUPS AND TAKING HIS MEDS ORDERED.PT IS ABLE TO VERBALIZE HIS CONCERNS AND FEELINGS IN A CALM AND APPROPRIATE MANNER. PT IS TENDING TO HIS ADLS ADEQUATELY
[2016-06-23 12:20] VITALS: BP 136/84
--- NOTE | 2016-06-23 13:30 | CP SOUTH PROGRESS NOTE PSYCH ---
Psych (Inpt) Progress Note Progress Note Progress Note: I discussed this patient's progress to date, current mental status, treatment process in the context of the treatment plan, and discharge planning with staff/ team in the daily morning inpatient team meeting. I also met with the patient myself in individual session. A total of 15 minutes was spent with the patient with more than 50% spent in counseling and/or coordination of care. SUBJECTIVE: "I sense tension in the air, I feel like a fight is going to break out." OBJECTIVE: Current Medications Sig/Pramod Start time Last Medication Dose Route Stop Time Status Admin Aspirin Buffered 81 MG DAILY 06/15 1000 AC 06/23 PO 0828 Atorvastatin Calcium 40 MG QPM 06/14 2199 AC 06/22 PO 2151 Benztropine Mesylate 0.5 MG 08,06/18 0800 AC 06/23 PO 0828 Famotidine 20 MG BID 06/14 2199 AC 06/23 PO 0828 Lamotrigine 25 MG 06/21 2200 AC 06/22 PO 2152 Levothyroxine Sodium 0.075 MG DAILY AC 06/17 0700 AC 06/23 PO 0642 Metformin HCl 500 MG 0800,1700 06/16 0800 AC 06/23 PO 0828 Metoprolol Tartrate 25 MG BID 06/14 2199 AC 06/23 PO 0828 Perphenazine 32 MG 06/200 AC 06/22 PO 2151 Perphenazine 8 MG Q4P PRN 06/20 2014 AC PO Sertraline HCl 200 MG DAILY 06/15 1000 AC 06/23 PO 0828 Tamsulosin HCl 0.4 MG DAILY 06/15 1000 AC 06/23 PO 0828 Vital Signs Date Time Temp Pulse Resp B/P B/P Pulse O2 O2 Flow FiO2 Mean Ox Delivery Rate 06/23 1220 69 136/84 06/24 827 75 137/89 06/23 0828 75 137/89 06/23 0813 95.2 75 137/89 06/23 2151 96.0 80 15 145/88 06/22 1959 96.0 80 145/88 06/22 1611 72 146/92 ASSESSMENT: Patient reports feeling tired this afternoon. States he slept "okay "" last night. Reports tolerating his medications well, without complaint. Patient reports that he feels there is tension on the unit, however states that he is not part of the tension, he has no thoughts to harm himself or anyone else. Depression:2/10; Anxiety:5/10 (with 10 the worst.) Denies suicidal ideation, homicidal ideation, auditory hallucinations, visual hallucinations. Patient states and also believes that he will not have hurt or kill himself, or anyone else. He reports having paranoid thoughts, 5/10 with 10 the worst. He states he feels that other people are looking at him. Speech is well articulated, goal-directed, average in rate, volume and tone. Flat affect. Alert and oriented 3. Cooperative. The patient understands the risks/benefits/side effects of the medication and is agreeable to continue taking them. PLAN: Family meeting planned for this afternoon. Anticipate discharge this afternoon or tomorrow. Continue with current management as patient is improving. Continue to provide support and encouragement.
--- NOTE | 2016-06-23 14:27 | SOCIAL WORKER PROG NOTE PSYCH ---
Social Work Progress Note Progress Note Met with pt and we called the prison and spoke with Mariel she had no questions or concerns about his treatment and as informed we are preparing for discharge today or tomorrow. She reports "Judson is boisterous Im sure he will tell me everything when he gets home". Pt denies si/hi/ah/vh. He reports he can work with staff regarding concerns about his roomate, but does not want to hurt him or anyone else. Pt agrees to attend intake at [facility] with Dr. Saravia on Thursday06/25/16 at 10:30am. Pt reports he was supposed to have a visit from his siblings and that iif he were dischrged today they would drive him back to prison, left message for Mickey [phone] (sibling).
--- NOTE | 2016-06-23 14:58 | NUR ---
PT IS SCHEDULED FOR D/C TO [facility] TODAY. HE REPORTS AND DEMONSTATES IMPROVEMENT IN MOOD AND ABILITY TO FUNCTION. HE DENIES ANY THOUGHTS OF SUICIDE OR SELF HARM. Ramandeep DES VISITING NURSES FOR MED ADMISISTRATION AND HE WILL FOLLOW UP WITH [facility] [address] AND DR MUNIZ. PT IS GIVEN EDUCATION R/T MANAGING HIS MOOD DISORDER AND ON SUICIDE PRVENTION
--- NOTE | 2016-06-23 15:13 | SOCIAL WORKER PROG NOTE PSYCH ---
Social Work Progress Note Progress Note Informed and requested [facility] care [facility] to restart as pt will be discharged today. [phone]. They will resume services.
--- NOTE | 2016-06-23 15:39 | DISCHARGE SUMMARY REPORT-PSYCH ---
Visit Information Visit Dates/Diagnosis' Admission Date: 06/16/16 Discharge Date: 06/23/16 Reason for Admission: Patient reports recrudescence of suicidal ideation/preoccupation and planning ( to overdose on "as may aspirin as it takes...") building up since most recent [facility] little over a month ago. This is the first admission since only 05/06/2016 (and the fifth in just the past year) for a 51-year-old single/never childless man who has been living for some time in an apartment in a supervised housing program in [facility] , and longtime unemployed/on disability. Psy Discharge Primary Diag: schizoaffective disorder Psy Discharge Secondary Diag: HTN, Morbid Obesity, (pre) DM; hypothyroidism. Hospital Course Significant Lab Findings: Lab ALT 103 U/L H 06/14/16 1315 AST 44 U/L 06/14/16 1315 Free T4 1.26 ng/dL 06/14/16 1315 Hemoglobin A1c 7.5 % H 06/20/16 0634 TSH 1.740 uIU/mL 06/14/16 1315 Thyroxine (T4) 7.7 ug/dL 06/14/16 1315 Course Complications: None Consultations: Patient was seen for admission history and physical by Dr. Schmitt. Please refer to her note for additional information. Allergies: Coded Allergies: bupropion (From WELLBUTRIN) (Severe, UNKNOWN PER PT 04/29/16) haloperidol (From HALDOL) (UNKNOWN PER PT 04/29/16) lithium (?ALLERGY 04/29/16) Hospital Course/TX Response: The patient was monitored on the unit for safety, depression, suicidal ideation, mood stability. He participated in multimodal treatments on the unit. Trilafon was restarted and increased to 32 mg at bedtime, Lamictal was started at 25 mg daily for mood stabilization, Zoloft for depression and anxiety. His home medications of Abilify and Depakote have been discontinued. As evidenced by the patient's multiple inpatient hospitalizations, these medications have not proved to be particularly beneficial. In addition, Depakote is associated with weight gain, and the patient suffers from morbid obesity. Lamictal is not associated with significant weight gain, and may be more effective in prophylaxis of depressive episodes and bipolar/schizoaffective disorders. Today, the day of discharge, patient reports that he feels safe and ready for discharge. His brother and sister came in for a family meeting along with his inpatient director social welfare. The siblings will be taking the patient to his home after discharge. Please refer to the director social welfare's note for additional information. He reports that he slept "okay"" last night. Depression:2/10; Anxiety:5/10 (with 10 the worst.) Denies suicidal ideation, homicidal ideation, auditory hallucinations, visual hallucinations. Patient states and also believes that he will not hurt or kill himself, or anyone else. He reports having paranoid thoughts, 5/10 with 10 the worst. He states he feels that other people are looking at him. Speech is well articulated, goal-directed, average in rate, volume and tone. Flat affect. Alert and oriented 3. Cooperative. He reports tolerating his medications well, without complaint. States he feels safe and ready for discharge. Discharge HBIPS - Tobacco Use Treatment Offered Post DC Medications Offered: NA-No Tob Use >30 days Post DC Tobacco Treatment Plan: NA-No Tobacco use >30days - EtOH/Drug Use D/O Treatment Offered Post DC Medications Offered: NA-No EtOH/Drug Use D/O Post DC EtOH/SubAbuse TX Plan: NA-No EtOH/Drug Use D/O Metabolic Screening - Screen if on a Neuroleptic Medication - Metabolic screening should include: - Blood Pressure, BMI, Glucose or Hgb A1c, & a - Lipid profile from within the past 365 days. Metabolic Screening () Not Applicable, patient not on a neuroleptic. OR ([x]) Patient on a neuroleptic(s) . Enter below results for Glucose or Hemoglobin A1C, and lipid panel if obtained during the last 365 days. BMI: 76.000 Blood Pressure: 136/84 Laboratory Results (If applicable): Lab Cholesterol 197 MG/DL 04/30/16 0626 Cholesterol/HDL Ratio 4 % 04/30/16 0626 Glucose 177 mg/dL H 06/14/16 1315 HDL Cholesterol 54 mg/dL 04/30/16 0626 Hemoglobin A1c 7.5 % H 06/20/16 0634 LDL Cholesterol, Calc 88 mg/dL 04/30/16 0626 Triglycerides 276 mg/dL H 04/30/16 0626 Discharge Instructions General Discharge Information Discharge Medications: Discharge Medications- (Dose, route, freq, indication): START taking these NEW Home Medications: Lamotrigine Dose: ORAL, 2200 for Days: 14 Printed (Lamictal) 25 MG 25 Milligram schizoaffective Refills: 0 TABLET Last Taken:06/22/16 Time:10pm Benztropine Mesylate Dose: ORAL, 0800,2000 for eps Days: 28 Printed (Benztropine 0.5 Milligram Last Taken:06/23/16 Refills: 0 Mesylate) 0.5 MG Time:8am TABLET Perphenazine Dose: ORAL, 2200 for Clear Qty: 56 Called in to (Perphenazine) 8 MG 32 Milligram thoughts Refills: 0 Pharm 1 TABLET Last Taken:06/22/16 Time:10pm CONTINUE taking these Home Medications: Aspirin (Ecotrin*) 81 MG Dose: ORAL, DAILY for TABLET.DR 1 Tablet HEART/BLOOD Last Taken:06/23/16 Time:8am Famotidine (Pepcid) 20 Dose: ORAL, TWICE DAILY for GI MG TABLET 1 Tablet Last Taken:06/23/16 Time:8am Lactobacillus Dose: ORAL, DAILY for Acidophilus 1 Capsule PROBIOTIC (Acidophilus) 1 EACH Last Taken:05/06/16 CAPSULE Time:0900 Levothyroxine Sodium Dose: ORAL, DAILY for THYROID (Levothyroxine Sodium) 75 Microgram PROBLEMS 75 MCG TABLET Last Taken:06/23/16 Time:7am Tamsulosin HCl (Flomax) Dose: ORAL, DAILY for 0.4 MG CAP.ER.24H 0.4 Milligram Last Taken:06/23/16 Time:8am Sertraline HCl (Zoloft) Dose: ORAL, DAILY for 100 MG TABLET 200 Milligram DEPRESSION Last Taken:06/23/16 Time:8am Nystatin (Nystatin) 100, Dose: ON SKIN, TWICE DAILY 000 UNIT/GRAM CREAM..G. 1 Gram for FUNGAL RASH Last Taken:05/04/16 Time:2120 Metformin HCl (Metformin Dose: ORAL, TWICE DAILY for DM HCl) 500 MG TABLET 1 Tablet Last Taken:06/23/16 Time:8am Atorvastatin Calcium Dose: ORAL, Every night for (Lipitor) 40 MG TABLET 1 Tablet CHOLESTEROL Last Taken:06/22/16 Time:10pm Metoprolol Tartrate Dose: ORAL, TWICE DAILY for (Metoprolol Tartrate) 25 1 Tablet HEART/BP MG TABLET Last Taken:06/23/16 Time:8am Cholecalciferol (Vitamin Dose: ORAL, DAILY for D3) (Vitamin D) 1,000 1 Tablet SUPPLEMENT UNIT TABLET STOP taking these DISCONTINUED Home Medications: Divalproex Sodium (Depakote Dose: ORAL, PM for MOOD STABILITY ER) 500 MG TAB.ER.24H 2,000 Milligram Reason Stopped: Changed to different med Perphenazine (Perphenazine) 8 Dose: ORAL, AT BEDTIME for voices, to MG TABLET 24 Milligram clear thoughts Reason Stopped: Changed Dose Aripiprazole (Abilify) 30 MG Dose: ORAL, DAILY for MENTAL HEALTH TABLET 1 Tablet Reason Stopped: Changed to different med Benztropine Mesylate Dose: ORAL, TWICE DAILY for PREVENT (Benztropine Mesylate) 1 MG 1 Tablet SIDE EFFECTS TABLET Reason Stopped: Changed Dose 1: [facility], [address] [facility], [place] [address] Your Preferred Pharmacy [facility] [address] [place] [address] Multiple Neuroleptics: ([x]) Not Applicable OR Document below three failed attempts at monotherapy, or a plan to taper to monotherapy, or augmentation of Clozapine. () Patient's Diet: Consistent carbohydrate/diabetic diet. Patient's Activity: No restrictions DC Disposition: [facility]. Recommendations: Medications as directed. Follow-up with your psychiatrist, and primary care doctor. Referred To: [facility], visiting nurse service telephone [phone] Psychiatrist: Dr. Hector. [address] [place] [address] appointment on 06/25/2016 at 10:30 AM. At that time you will also see director social welfare SEN Vazquez. Copies To: Dr. Nathalie Hector; [facility]
[2016-06-23] MEDS ORDERED: PERPHENAZINE8 M1 PO (15:48)
== END 2016-06-23 16:13 | DRG 885 ==
LOC: ENRESERVTM → ENRESERVDT → ERH 12:48 → ERHI 06-16 15:13 → CP SOUTH 06-16 15:13
PROVIDERS: Emergency Medicine; ADMIT Psychiatry & Neurology Addiction Medicine
DX: F25.9 Schizoaffective disorder, unspecified (principal); E66.01 Morbid (severe) obesity due to excess calories; I10 Essential (primary) hypertension; E11.9 Type 2 diabetes mellitus without complications; E03.9 Hypothyroidism, unspecified
CPT/HCPCS: 36415; 80307; 87086; G0463; G0480; J1200

== ENCOUNTER 2017-02-27 09:08 | Inpatient (IN) | payer OTHER, MEDICARE ==
[~2017-02-27] VITALS: Ht 175.3 cm; Wt 202.8 kg
[~2017-02-27 09:08] MED LIST changes: +ABILIFY20 M1 PO; +BENZTROPINE ME0.5 M1 PO; +DIVALPROEX SOD500 M3 PO; +LAMICTAL25 M1 PO; +LIPITOR40 M1 PO; +METFORMIN HCL500 M3 PO; +METOPROLOL TART25 M1 PO; +TRAZODONE HCL100 M1 PO; +VITAMIN D1000 UNIT PO; +ZOLOFT50 M1 PO
[2017-02-27] MEDS ORDERED: ABILIFY30 M1 PO (09:21)
[2017-02-27 10:30] LABS: ABSOLUTE BASOPHIL COUNT 0 /CUMM (0.0-0.2); ABSOLUTE EOSINOPHIL COUNT 0.3 /CUMM (0.0-0.7); ABSOLUTE GRANULOCYTE CT 6.3 /CUMM (1.4-6.5); ABSOLUTE LYMPH COUNT 2.1 /CUMM (1.2-3.4); ABSOLUTE MONOCYTE COUNT 0.6 /CUMM (0.10-0.60); BASOPHIL % 0.3 % (0.0-2.0); EOSINOPHIL % 2.8 % (0-5); GRANULOCYTE % 68.2 % (42.2-75.2); HEMATOCRIT 41.8 % (42-52); MEAN CORPUSCULAR HGB 27.9 PG (27.0-31.0); MEAN CORPUSCULAR HGB CONC 33.3 G/DL (33.0-37.0); MEAN CORPUSCULAR VOLUME 83.8 FL (80.0-94.0); MEAN PLATELET VOLUME 7.9 FL (7.4-10.4); PLATELET COUNT 209 /CUMM (130-400); RBC DISTRIBUTION WIDTH 14.3 % (11.5-14.5); RED BLOOD CELL CT 4.98 /CUMM (4.70-6.10); WHITE BLOOD CELL COUNT 9.3 /CUMM (4.8-10.8)
--- NOTE | 2017-02-27 10:32 | ED PSYCHIATRIC COMPLAINT ---
History of Present Illness General Chief Complaint: Psychiatric Related Complaint Stated Complaint: BIBA CONTINUED +SI FROM SNF Source: patient Exam Limitations: poor historian Allergies Coded Allergies: bupropion (From WELLBUTRIN) (Severe, UNKNOWN PER PT 04/29/16) haloperidol (From HALDOL) (UNKNOWN PER PT 04/29/16) lithium (?ALLERGY 04/29/16) Reconcile Medications Aripiprazole (Abilify) 30 MG TABLET 1 TAB PO QAM MOOD (Reported) Aspirin (Ecotrin*) 81 MG TABLET.DR 1 TAB PO DAILY HEART/BLOOD (Reported) Atorvastatin Calcium (Lipitor) 40 MG TABLET 1 TAB PO QPM CHOLESTEROL ( Reported) Cholecalciferol (Vitamin D3) (Vitamin D) 1,000 UNIT TABLET 4 TAB PO DAILY SUPPLEMENT (Reported) Divalproex Sodium (Divalproex Sodium ER) 500 MG TAB.ER.24H 2 TAB PO QHS MENTAL HEALTH (Reported) Famotidine (Pepcid) 20 MG TABLET 1 TAB PO Q12H GI (Reported) Levothyroxine Sodium 75 MCG TABLET 75 MCG PO DAILY AC THYROID (Reported) Metformin HCl 500 MG TABLET 1 TAB PO BID DM (Reported) Sertraline HCl (Zoloft) 100 MG TABLET 2 TAB PO QAM MENTAL HEALTH (Reported) Tamsulosin HCl (Flomax) 0.4 MG CAP.ER.24H 1 CAP PO QHS (Reported) Trazodone HCl 100 MG TABLET 1 TAB PO QHS MENTAL HEALTH (Reported) Triage Note: BIBA ON PEER FROM [facility] FOR +SI/-HI. REPORTED TO POLICE "I AM DEPRESSED AND I'M THINKING ABOUT HARMING MYSELF" PT DENIES PLAN. HAS BEEN SEEN MULTIPLE TIMES HERE FOR SAME. HX SCHIZOAFFECTIVE D/O. SNF STATES THEY CANNOT MEET HIS MENTAL HEALTH NEEDS. PT REQUESTING TO GO TO [facility], BUT IS ON STATE INSURANCE. DENIES ETOH/DRUG USE. CALM AND COOPERATIVE ON ARRIVAL. PT IS MORBIDLY OBESE. DENIES PHYSICAL COMPLAINTS. SECURITY TO BEDSIDE FOR WANDING ON ARRIVAL. Triage Nurses Notes Reviewed? yes Onset: Abrupt Duration: day(s):, constant, continues in ED Timing: recent history HPI: 52-year-old male comes into the emergency room with complaints of not wanting to live anymore. He reports that he has been feeling increasingly depressed. He feels that its pointless. He is coming from short-term rehabilitation. Previous history of EtOH and substance abuse. Denies any pain. He is homeless normally. He does not offer a lot of information. Poor historian. (Clay Frausto) Vital Signs & Intake/Output Vital Signs & Intake/Output Vital Signs Date Time Temp Pulse Resp B/P B/P Pulse O2 O2 Flow FiO2 Mean Ox Delivery Rate 02/27 1525 98.0 92 151/80 02/27 1503 98.0 92 150/80 02/27 1209 98.7 88 19 142/88 98 Room Air (Bhavya MONTANO,Robin Schafer) Past History Travel History Traveled to [place] past 21 day No Medical History Any Pertinent Medical History? see below for history Neurological: migraine EENT: NO TEETH, NO DENTURES Cardiovascular: hypertension Respiratory: NONE Gastrointestinal: NONE, HEMERRHOIDS Hepatic: NONE Renal: NONE Musculoskeletal: ARTHRITIS HEEL SPUR Morbid Obesity Psychiatric: anxiety, chronic pain disorder, depression, insomnia, psychosis ( command auditory hallucination), schizo affective disorder, AVOIDANT PERSONALITY DIS Endocrine: hypothyroidism, PRE-DIABETIC (on Metformin for this) (on oral hypoglycemic regimen) Blood Disorders: NONE Cancer(s): NONE MANAGER OF LEARNING/Reproductive: NONE Other Medical Hx: patient is seriously morbidly obese; he has in the past tried to be accepted for gastric bypass surgery but been "rejected" History of MRSA: No History of VRE: No History of CDIFF: No Surgical History Surgical History: non-contributory Psychosocial History Who do you live with Other (see notes) What is your primary language Palauan Tobacco Use: Refused to answer Family History Family History, If Any: FATHER Relation not specified for: Diabetes mellitus in father Hx Contributory? No (Clay Frausto) Review of Systems Review of Systems Constitutional: Reports: no symptoms. EENTM: Reports: no symptoms. Respiratory: Reports: no symptoms. Cardiovascular: Reports: no symptoms. GI: Reports: no symptoms. Genitourinary: Reports: no symptoms. Musculoskeletal: Reports: no symptoms. Skin: Reports: no symptoms. Neurological/Psychological: Reports: see HPI. Hematologic/Endocrine: Reports: no symptoms. Immunologic/Allergic: Reports: no symptoms. All Other Systems: Reviewed and Negative (Clay Frausto) Physical Exam Physical Exam General Appearance: well developed/nourished, mild distress Head: atraumatic Eyes: Bilateral: normal appearance. Ears, Nose, Throat: normal ENT inspection, hearing grossly normal Neck: normal inspection Respiratory: no respiratory distress Cardiovascular: regular rate/rhythm Extremities: normal range of motion Neurological/Psychiatric: awake, alert Appearance/Memory/Insight: impaired insight Behavoir/Eye Contact/Speech: decreased rate of speech Thoughts/Hallucinations: no apparent hallucination, flat affect Skin: intact, normal color, warm/dry (Clay Frausto) SAD PERSONS Done? DEFERRED TO CRISIS (Bhavya MONTANO,Robin Schafer) Progress Differential Diagnosis: dementia, drug intoxication, drug overdose, drug withdrawal, electrolyte abnormality, encephalitis, hypoglycemia, hypothyroidism, IC hem/mass/tumor, meningitis, schizoaffective, schizophrenia, bipolar, (Clay Frausto) Plan of Care: Orders Procedure Date/time Status VALPROIC ACID 03/02 0600 Active Regular Diet 02/27 L Complete Consistent Carbohydrate 3 02/27 D Active Vital Signs 02/27 1516 Active Inpt Psych Teach/Educate 02/27 1516 Active Nutritional Intake, Monitor 02/27 1516 Active Inpt Psych Auricular Acupunctu 02/27 1516 Active Admit to inpatient psych 02/27 1401 Active Lab Add-on Test 02/27 1320 Active Lab Add-on Test 02/27 1309 Active Patient Data - inpatient psych 02/27 1301 Active Admit to inpatient psych 02/27 1301 Active ED CRISIS PSYCH CONSULT 02/27 1147 Active TSH REFLEX 02/27 0925 Complete DEPAKOTE LEVEL 02/27 0925 Complete AMYLASE 02/27 0925 Complete Intake & Output 02/27 0912 Complete Continuous Observation Monitor 02/27 0912 Complete URINE DRUGS OF ABUSE 02/27 0912 Complete ETHANOL 02/27 0912 Complete COMPREHENSIVE METABOLIC PANEL 02/27 0912 Complete CBC WITHOUT DIFFERENTIAL 02/27 0912 Complete Vital Signs 02/27 UNK Complete Nursing Misc 02/27 UNK Active FingerStick- Glucose 02/27 UNK Active Alternative Nursing Therapy 02/27 UNK Active Activity/Ambulation 02/27 UNK Active Current Medications Sig/Pramod Start time Last Medication Dose Stop Time Status Admin Aripiprazole 30 MG DAILY 02/28 1000 AC (Abilify) Aspirin Buffered 81 MG DAILY 02/28 1000 AC (Ecotrin) Cholecalciferol 1,000 IU DAILY 02/28 1000 AC (Vitamin D) Sertraline HCl 200 MG DAILY 02/28 1000 AC (Zoloft) Tamsulosin HCl 0.4 MG DAILY 02/28 1000 AC (Flomax) Levothyroxine Sodium 0.075 MG DAILY AC 02/28 0700 AC (Synthroid) Divalproex Sodium 1,000 MG AT BEDTIME 02/27 2200 AC (Depakote ER) Famotidine 20 MG BID 02/27 2200 AC (Pepcid) Metoprolol Tartrate 25 MG BID 02/27 2200 AC (Lopressor) Trazodone HCl 100 MG AT BEDTIME 02/27 220 AC (Desyrel) Atorvastatin Calcium 40 MG 1700 02/27 1700 AC (Lipitor) Metformin HCl 500 MG 0800,1700 02/27 1700 AC (Glucophage) Olanzapine 10 MG Q12P PRN 02/27 1330 AC (ZyPREXA) Acetaminophen 650 MG Q6P PRN 02/27 1315 AC (Tylenol) Al Hydroxide/Mg 30 ML Q4-6 PRN PRN 02/27 1315 AC Hydroxide (Maalox Plus) Magnesium Hydroxide 30 ML AT BEDTIME NEED.. 02/27 1315 AC (Milk Of Magnesia) Multivitamins 1 TAB DAILY 02/27 1303 AC (Theragran Vitamins) Laboratory Tests 02/27/17 1020: RBC 4.98, MCV 83.8, MCH 27.9, RDW 14.3, MPV 7.9, Gran % 68.2, Lymphocytes % 22.6 , Monocytes % 6.1, Eosinophils % 2.8, Basophils % 0.3, Absolute Granulocytes 6.3 , Absolute Lymphocytes 2.1, Absolute Monocytes 0.6, Absolute Eosinophils 0.3, Absolute Basophils 0, PUBS MCHC 33.3 02/27/17 1007: Urine Opiates Screen < 100.00, Methadone Screen < 40, Barbiturate Screen < 60, Ur Phencyclidine Scrn < 6.00, Amphetamines Screen < 100, U Benzodiazepines Scrn < 85, Urine Cocaine Screen < 50, Urine Cannabis Screen < 5.00 02/27/17 0925: Anion Gap 16, Estimated GFR > 60, BUN/Creatinine Ratio 18.3, Glucose 271 H, Calcium 9.3, Total Bilirubin 0.4, AST 36, ALT 38, Alkaline Phosphatase 74, Total Protein 6.8, Albumin 3.8, Globulin 3.0, Albumin/Globulin Ratio 1.3, Amylase 34, TSH &T3 &Free T4 Intrp 2.430, Valproic Acid 43.3 L, Serum Alcohol < 10.0 (Robin Latif MD) Departure Departure Disposition: STILL A PATIENT Condition: Stable Clinical Impression Primary Impression: Schizoaffective disorder Referrals: Kapil Hector MD (PCP/Family) Departure Forms: Customer Survey General Discharge Information Psych Admission Note Psychiatric Admission: I have seen and evaluated DORY ANDREA. I have also reviewed all the pertinent lab results and diagnostic results. DORY ANDREA will be admitted to our inpatient Psychiatric unit for treatment and care. (Clay Frausto) PA/ORTHOPEDICALLY IMPAIRED TEACHER Co-Sign Statement Statement: ED Attending supervision documentation- [X] I saw and evaluated the patient. I have also reviewed all the pertinent lab results and diagnostic results. I agree with the findings and the plan of care as documented in the PA's/ORTHOPEDICALLY IMPAIRED TEACHER's documentation. [] I have reviewed the ED Record and agree with the PA's/ORTHOPEDICALLY IMPAIRED TEACHER's documentation. [] Additions or exceptions (if any) to the PAs/ORTHOPEDICALLY IMPAIRED TEACHER's note and plan are summarized below: [] (Bhavya MONTANO,Robin Schafer)
--- NOTE | 2017-02-27 12:52 | ED PSYCH CRISIS CONSULTATION ---
Crisis Consult Basic Assessment Date of Consult: 02/27/17 Responsible Person/Accompanied By: ZEKE and on a PEER Insurance Authorization: Insurance #1: Insurance name: MEDICARE A Phone number: Policy number: [id number] Group number: Authorization number: ED Provider: Patient's ED Provider: Clay Frausto Primary Care Physician: Patient's PCP: Kapil Hector MD PCP's Current Psychiatrist: He sees a provider at [facility] Chief Complaint: Psychiatric Related Complaint Patient's Quote: "I was feeling really depressed and suicidal." Present Illness: The patient is a 52 year old, single , conserved male presenting to the ED on a PEER from [facility], where he has been living. He reports worsening symptoms of depression and suicidal ideations. He states that he has been feeling helpless, hopeless, and worthless. He rates his depression a 10 out of 10, 10 being the most severe and his anxiety a 10 out of 10, 10 being the most severe. He has had a decrease in sleep, concentration and motivation to do things. He continues to endorse suicidal thoughts, however does not have a plan at this time. Per the records he has a history of making suicide attempts. He states that "everything," is stressful, noting "I cant' even drop a piece of paper on the floor without feeling like its a task." He states that his weight has been making everything difficult for him. He has a long history of mental health issues and has been treated at [place] ([facility] at least 7 times), [facility] (01/31/2017) and [facility]. He is currently working with a psychologist and social workers at the [facility]. He has a history of hearing voices and having homicidal thoughts, however is denying both at this time. He believes that he needs to be inpatient. He is conserved by Wood Settermilind Joiner ([phone]) and her office was notified that he will be admitted to [facility]. SW spoke to Makenzie a nurse at [facility] ([phone]), who reports that the patient continually asked to be sent to the hospital earlier today. Makenzie notes that the patient has been complaining of his depression and started to make suicidal statements and therefore they called the ambulance. Makenzie believes that the patient requires an inpatient admission. [facility]'s [facility] [address] [address] Other Phone Number: Who Do You Live With? Other (see notes) Family/Informants Interviewed: Nurse Smiley at [facility] ([phone]), Conservator- Priti Camera- [phone] Allergies - Coded Allergies: bupropion (From WELLBUTRIN) (Severe, UNKNOWN PER PT 04/29/16) haloperidol (From HALDOL) (UNKNOWN PER PT 04/29/16) lithium (?ALLERGY 04/29/16) Current Medications - Scheduled Medications Aripiprazole (Abilify) 30 MG TABLET 1 TAB PO QAM MOOD (Reported) Entered as Reported by Sybil Chaudhry on 02/27/17 0921 Aspirin (Ecotrin*) 81 MG TABLET.DR 1 TAB PO DAILY HEART/BLOOD (Reported) Entered as Reported by Arianna Dennis on 06/19/15 1739 Atorvastatin Calcium (Lipitor) 40 MG TABLET 1 TAB PO QPM CHOLESTEROL ( Reported) Entered as Reported by Arianna Dennis on 06/14/16 185 Cholecalciferol (Vitamin D3) (Vitamin D) 1,000 UNIT TABLET 4 TAB PO DAILY SUPPLEMENT (Reported) Entered as Reported by Arianna Dennis on 06/14/16 185 Divalproex Sodium (Divalproex Sodium ER) 500 MG TAB.ER.24H 2 TAB PO QHS MENTAL HEALTH #60 (Reported) Entered as Reported by Ronald Hill on 12/09/16 0818 Famotidine (Pepcid) 20 MG TABLET 1 TAB PO Q12H GI (Reported) Entered as Reported by Arianna Dennis on 06/19/15 1740 Levothyroxine Sodium 75 MCG TABLET 75 MCG PO DAILY AC THYROID (Reported) Entered as Reported by Blayne Sanford on 04/29/162022 Metformin HCl 500 MG TABLET 1 TAB PO BID DM #180 (Reported) Entered as Reported by Arianna Dennis on 06/14/16 1851 Sertraline HCl (Zoloft) 100 MG TABLET 2 TAB PO QAM MENTAL HEALTH (Reported) Entered as Reported by Arianna Dennis on 01/15/17 1640 Tamsulosin HCl (Flomax) 0.4 MG CAP.ER.24H 1 CAP PO QHS (Reported) Entered as Reported by Blayne Sanford on 04/29/16 2026 Trazodone HCl 100 MG TABLET 1 TAB PO QHS MENTAL HEALTH #30 (Reported) Entered as Reported by Arianna Dennis on 01/15/17 1642 Laboratory Results: Laboratory Tests 02/27/17 1020: RBC 4.98, MCV 83.8, MCH 27.9, RDW 14.3, MPV 7.9, Gran % 68.2, Lymphocytes % 22.6 , Monocytes % 6.1, Eosinophils % 2.8, Basophils % 0.3, Absolute Granulocytes 6.3 , Absolute Lymphocytes 2.1, Absolute Monocytes 0.6, Absolute Eosinophils 0.3, Absolute Basophils 0, PUBS MCHC 33.3 02/27/17 1007: Urine Opiates Screen < 100.00, Methadone Screen < 40, Barbiturate Screen < 60, Ur Phencyclidine Scrn < 6.00, Amphetamines Screen < 100, U Benzodiazepines Scrn < 85, Urine Cocaine Screen < 50, Urine Cannabis Screen < 5.00 02/27/17 0925: Anion Gap 16, Estimated GFR > 60, BUN/Creatinine Ratio 18.3, Glucose 271 H, Calcium 9.3, Total Bilirubin 0.4, AST 36, ALT 38, Alkaline Phosphatase 74, Total Protein 6.8, Albumin 3.8, Globulin 3.0, Albumin/Globulin Ratio 1.3, Serum Alcohol < 10.0 Past History Past Medical History Neurological: migraine EENT: NO TEETH, NO DENTURES Cardiovascular: hypertension Respiratory: NONE Gastrointestinal: NONE, HEMERRHOIDS Hepatic: NONE Renal: NONE Musculoskeletal: ARTHRITIS HEEL SPUR Morbid Obesity Psychiatric: anxiety, chronic pain disorder, depression, insomnia, psychosis ( command auditory hallucination), schizo affective disorder, AVOIDANT PERSONALITY DIS Endocrine: hypothyroidism, PRE-DIABETIC (on Metformin for this) (on oral hypoglycemic regimen) Blood Disorders: NONE Cancer(s): NONE 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 Physical Limitations (Interventions): Morbid obesity Psychiatric Treatment History Psych Treatment Psychiatric Treatment Yes Inpatient Treatment Yes Outpatient Treatment Yes Location of Treatment [facility] and [facility] Reason for Treatment Schizoaffective Disorder Dates of Treatment [facility] 2017 (2), 2016 (3), 2009 (2), Response to Treatment Unclear Diagnosis by History: Schizoaffective d/o, depressed type Substance Use/Abuse History Drug Use/Abuse Substances Used/Abused No First Use N/A Last Used N/A How much used/taken N/A How often N/A For how long N/A Route of use N/A Substance Abuse Treatment Substance Abuse Treatment Past Substance Abuse TX No Inpatient Treatment No Outpatient Treatment No Location of Treatment N/A Reason for Treatment N/A Dates of Treatment N/A Response to Treatment N/A Comments: The patient reports that he has used Cannabis in the past, however has never required treatment for substance abuse. Current Mental Status Mental Status Orientation: Person, Place, Situation Affect: Depressed Speech: WNL Neuro-vegetative: Concentration Poor, Energy Decreased, Helpless, Sleep Disturbance Appearance Appearance- Dress/Hygiene: The patient was sitting in bed, in hospital attire with depressed mood and flat affect. Behaviors Thought Process: WNL Thought Content: WNL, The patient reports that he does have a history of hearing voices, however is not hearing them now. Memory: WNL Insight: WNL SI/HI Risk Assessment Past Suicidal Ideation/Attempts Yes Current Suicidal Ideation/Att Yes Past Homicidal Ideation/Att: Yes Current Homicidal Ideation/Attempts No Degree of Intent: Thoughts/No Intent, The patient reports that he has been having suicidal thoughts, however he does not have a plan at this time. Per the records, he does have a history of attempting suicide. Danger To: Self Gravely Disabled: Poor Impulse Control Risk Factors: high anxiety/distress, history of suicide atmpts, SA/MH hospitalized, male Lethality Ratin PTSD Checklist PTSD Done? patient declined (Pt. denies trauma or abuse hx.) ED Management Sitter: Yes Restraints: No DSM5/PS Stressors/Medical Prob Diagnosis' (DSM 5, Stressors, Medical): F25.1 Schizoaffective Disorder, Depressive Type Medical: Hypertension, hypothyroidism (per records) Stressors: Finances, housing, conserved Current GAF: 25 Comments: N/A Departure Disposition Psych Medical Clearance Date: 02/27/17 Medically Cleared at: 1030 Time Started: 1130 Time Ended: 1215 Psychiatrist Consulted: John Paul Moreno MD Date Disposition Established: 02/27/17 Time Disposition Established: 1214 Plan for Disposition - Modality: Inpatient Psychiatry Facility: [facility] Contact: N/A Telephone: N/A Rationale for Disposition: The patient presents to the ED on a PEER, after making suicidal statements. He reports worsening symptoms of depression and anxiety. He has had a decrease in sleep, appetite, motivation and concentration. Case discussed with Dr. Moreno and he will admit the patient to [facility] for symptom stablilization. Type of IP Admission: Voluntary Additional Instructions: N/A Referrals Kapil Hector MD (PCP/Family)
--- NOTE | 2017-02-27 14:10 | IP CRISIS DIAG ASSESS PSYCH ---
Diagnostic Assessment Basic Assessment Insurance Authorization: Insurance #1: Insurance name: MEDICARE A Phone number: Policy number: [id number] Group number: Authorization number: 1. Primary Medicare- Does not require prior authorization. 2. Medicaid- prior authorization requested through the [facility] online portal and is listed as "pended." Pended Authorization # [id number] Client Authorization # [id number] Type of Request INITIAL Primary Care Physician: Patient's PCP: Kapil Hector MD PCP's Patient's Quote: "I was feeling really depressed and suicidal." Present Illness: The patient is a 52 year old, single , conserved male presenting to the ED on a PEER from [facility], where he has been living. He reports worsening symptoms of depression and suicidal ideations. He states that he has been feeling helpless, hopeless, and worthless. He rates his depression a 10 out of 10, 10 being the most severe and his anxiety a 10 out of 10, 10 being the most severe. He has had a decrease in sleep, concentration and motivation to do things. He continues to endorse suicidal thoughts, however does not have a plan at this time. Per the records he has a history of making suicide attempts. He states that "everything," is stressful, noting "I cant' even drop a piece of paper on the floor without feeling like its a task." He states that his weight has been making everything difficult for him. He has a long history of mental health issues and has been treated at [place] ([facility] at least [address] times), [facility] (01/31/2017) and [facility]. He is currently working with a psychologist and social workers at the [facility]. He has a history of hearing voices and having homicidal thoughts, however is denying both at this time. He believes that he needs to be inpatient. He is conserved by Senior Administrative Support Priti Joiner ([phone]) and her office was notified that he will be admitted to [facility]. SW spoke to Makenzie a nurse at [facility] ([phone]), who reports that the patient continually asked to be sent to the hospital earlier today. Makenzie notes that the patient has been complaining of his depression and started to make suicidal statements and therefore they called the ambulance. Makenzie believes that the patient requires an inpatient admission. Patient's Address: [address] [address] Other Phone Number: Who Do You Live With? Other (see notes) Feel Safe Where You Live? Yes (SNF) Feel Safe in Your Relationship Yes (Not in a current relationship) Marital Status: single Do You Have Children? No Primary Language? Guatemalan Language(s) Spoken At Home: Guatemalan Family/Informants Interviewed: Nurse Reis at [facility] ([phone]) Conservator- Priti Camera- [phone] Allergies - Coded Allergies: bupropion (From WELLBUTRIN) (Severe, UNKNOWN PER PT 04/29/16) haloperidol (From HALDOL) (UNKNOWN PER PT 04/29/16) lithium (?ALLERGY 04/29/16) Current Medications - Scheduled Medications Aripiprazole (Abilify) 30 MG TABLET 1 TAB PO QAM MOOD (Reported) Entered as Reported by Sybil Chaudhry on 02/27/17 0921 Aspirin (Ecotrin*) 81 MG TABLET.DR 1 TAB PO DAILY HEART/BLOOD (Reported) Entered as Reported by Arianna Dennis on 06/19/15 1739 Atorvastatin Calcium (Lipitor) 40 MG TABLET 1 TAB PO QPM CHOLESTEROL ( Reported) Entered as Reported by Arianna Dennis on 06/14/16 1852 Cholecalciferol (Vitamin D3) (Vitamin D) 1,000 UNIT TABLET 4 TAB PO DAILY SUPPLEMENT (Reported) Entered as Reported by Arianna Dennis on 06/14/16 1853 Divalproex Sodium (Divalproex Sodium ER) 500 MG TAB.ER.24H 2 TAB PO QHS MENTAL HEALTH #60 (Reported) Entered as Reported by Ronald Hill on 12/09/16 0818 Famotidine (Pepcid) 20 MG TABLET 1 TAB PO Q12H GI (Reported) Entered as Reported by Arianna Dennis on 06/19/15 1740 Levothyroxine Sodium 75 MCG TABLET 75 MCG PO DAILY AC THYROID (Reported) Entered as Reported by Blayne Sanford on 04/29/162022 Metformin HCl 500 MG TABLET 1 TAB PO BID DM #180 (Reported) Entered as Reported by Arianna Dennis on 06/14/16 1851 Sertraline HCl (Zoloft) 100 MG TABLET 2 TAB PO QAM MENTAL HEALTH (Reported) Entered as Reported by Arianna Dennis on 01/15/17 1640 Tamsulosin HCl (Flomax) 0.4 MG CAP.ER.24H 1 CAP PO QHS (Reported) Entered as Reported by Blayne Sanford on 04/29/162025 Trazodone HCl 100 MG TABLET 1 TAB PO QHS MENTAL HEALTH #30 (Reported) Entered as Reported by Arianna Dennis on 01/15/17 1642 Consequences of Psych Med Use: N/A Comment: N/A Lab Results: Laboratory Tests 02/27/17 1020: RBC 4.98, MCV 83.8, MCH 27.9, RDW 14.3, MPV 7.9, Gran % 68.2, Lymphocytes % 22.6 , Monocytes % 6.1, Eosinophils % 2.8, Basophils % 0.3, Absolute Granulocytes 6.3 , Absolute Lymphocytes 2.1, Absolute Monocytes 0.6, Absolute Eosinophils 0.3, Absolute Basophils 0, PUBS MCHC 33.3 02/27/17 1007: Urine Opiates Screen < 100.00, Methadone Screen < 40, Barbiturate Screen < 60, Ur Phencyclidine Scrn < 6.00, Amphetamines Screen < 100, U Benzodiazepines Scrn < 85, Urine Cocaine Screen < 50, Urine Cannabis Screen < 5.00 02/27/17 0925: Anion Gap 16, Estimated GFR > 60, BUN/Creatinine Ratio 18.3, Glucose 271 H, Calcium 9.3, Total Bilirubin 0.4, AST 36, ALT 38, Alkaline Phosphatase 74, Total Protein 6.8, Albumin 3.8, Globulin 3.0, Albumin/Globulin Ratio 1.3, Amylase 34, TSH &T3 &Free T4 Intrp 2.430, Valproic Acid 43.3 L, Serum Alcohol < 10.0 Toxicology Screen Completed? Yes Results: negative Symptoms of Use: N/A Past History Past Surgical History Surgical History none Abuse/Trauma History Trauma History/Current Trauma: Denies Legal History Current Legal Status: none Have you ever been arrested? No Number of Arrests: [address] Dates: N/A Chief Psychology N/A Psychosocial History Strengths/Capabilities: He has a conservator and is on social security disability. Physical Limitations (Interventions): Morbid obesity Psychiatric Treatment History Psych Treatment Psychiatric Treatment Yes Inpatient Treatment Yes Outpatient Treatment Yes Location of Treatment [facility] Reason for Treatment Schizoaffective Disorder Dates of Treatment [facility] 2017 (2), 2015 (3), 2009 (2), Response to Treatment Unclear Diagnosis by History: Schizoaffective d/o, depressed type Risk Factors: high anxiety/distress, history of suicide atmpts, SA/MH hospitalized, male Substance Use/Abuse History Drug Use/Abuse minimum 12mo Hx Substances Used/Abused No First Use N/A Last Used N/A How much used/taken N/A How often N/A For how long N/A Route of use N/A Substance Abuse Treatment Substance Abuse Treatment Past Substance Abuse [place] No Inpatient Treatment No Outpatient Treatment No Location of Treatment N/A Reason for Treatment N/A Dates of Treatment N/A Response to Treatment N/A Comments: The patient reports that he has used Marijuana in the past. Sexual History Sexual Concerns: None noted Education History Highest Level of Education: high school/GED (Per history) Preferred Learning Style: Unclear Current Mental Status Mental Status Orientation: Person, Place, Situation Affect: Depressed Speech: WNL Neuro-vegetative: Concentration Poor, Energy Decreased, Helpless, Sleep Disturbance Appearance Appearance- Dress/Hygiene: The patient was sitting in bed, in hospital attire with depressed mood and flat affect. Behaviors Thought Process: WNL Thought Content: WNL, The patient reports that he does have a history of hearing voices, however is not hearing them now. Memory: WNL Insight: WNL SI/HI Risk Assessment - Minimum 6mo History- Past Suicidal Ideation/Attempts Yes Current Suicidal Ideation/Att Yes Past Homicidal Ideation/Att: Yes Current Homicidal Ideation/Attempts No Degree of Intent: Thoughts/No Intent, The patient reports that he has been having suicidal thoughts, however he does not have a plan at this time. Per the records, he does have a history of attempting suicide. Danger To: Self Gravely Disabled: Poor Impulse Control Risk Factors: high anxiety/distress, history of suicide atmpts, SA/MH hospitalized, male Lethality Ratin Needs/Init TX Plan/Goals: Admit to the inpatient unit for safety and symptom stability. Work with the provider on medication management. Work with the treatment team on transition back to care in the community. Attend individual, group and family sessions. AUDIT-C Questionnaire: AUDIT-C Questionnaire: Response Value ETOH use in the past year Never 0 # drinks typical/day Doesn't Drink 0 6 or > drinks per occasion Never 0 Total 0 DSM5/PS Stressors/Medical Prob Diagnosis' (DSM 5, Stressors, Medical): F25.1 Schizoaffective Disorder, Depressive Type Medical: Hypertension, hypothyroidism (per records) Stressors: Finances, housing, conserved Current GAF: 25 Comments: N/A
--- NOTE | 2017-02-27 15:01 | CPS PROVIDER INIT ASMT PSYCH ---
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 He rated his depression in the emergency department as 10 out of 10 and his anxiety also as 10 out of 10. He also reported decreased sleep and poor concentration and poor motivation and he is well known to the staff at the crisis intervention as well as the inpatient psychiatric unit at [facility] Circumstances Leading to Admission: Depression and thoughts of suicide Problem(s) Justifying Need for Admission: thoughts of suicide Other HPI: The patient has a long history of mental health and mental illness and has been treated at Inpatient Psychiatry for at least 7 times before [place] [facility] [place] [facility] Past Psychiatric History Past Diagnosis(es)- if any: Skin schizoaffective disorder anxiety disorder Past Precipitating Factors- if any: Loneliness and boredom - Include inpatient and outpatient treatment Treatment History: Several inpatient psychiatric admissions to [facility] this may be his eighth time Admission to [facility] History of Suicide Attempts or Gestures Patient has had multiple suicide attempts attempts in the past mostly by overdoses Substance Abuse History: He denied abusing alcohol or substances. He did acknowledge that he had a remote history of smoking cannabis way back Allergies: Coded Allergies: bupropion (From WELLBUTRIN) (Severe, UNKNOWN PER PT 04/29/16) haloperidol (From HALDOL) (UNKNOWN PER PT 04/29/16) lithium (?ALLERGY 04/29/16) Home Med List: Aripiprazole 30 mg every morning Aspirin 81 mg in the morning Lipitor 40 mg in the evening Vitamin D3 1000 4000 units daily Depakote ER 1000 mg at bedtime Pepcid 20 mg twice daily levothyroxine 75 g every morning metformin 500 mg twice daily sertraline 200 mg daily Flomax 0.4 mg in the evening Trazodone 100 mg at bedtime - Include any medical condition(s) that may - impact the patient's recovery/remission Past Medical History: Dyslipidemia diabetes mellitus hypothyroidism and prostatic hypertrophy Past History Medical History Neurological: migraine EENT: NO TEETH, NO DENTURES Cardiovascular: hypertension Respiratory: NONE Gastrointestinal: NONE, HEMERRHOIDS Hepatic: NONE Renal: NONE Musculoskeletal: ARTHRITIS HEEL SPUR Morbid Obesity Psychiatric: anxiety, chronic pain disorder, depression, insomnia, psychosis ( command auditory hallucination), schizo affective disorder, AVOIDANT PERSONALITY DIS Endocrine: hypothyroidism, PRE-DIABETIC (on Metformin for this) (on oral hypoglycemic regimen) Blood Disorders: NONE Cancer(s): NONE 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 Other Medical Hx: patient is seriously morbidly obese; he has in the past tried to be accepted for gastric bypass surgery but been "rejected" History of MRSA: No History of VRE: No History of CDIFF: No Isolation History: Standard Surgical History Surgical History: none Psychiatric Family/Social Hx Family History Psychiatric Illness: Not to the patient's knowledge Substance Use: not to the patient's knowledge Suicides: Not to the patient's knowledge Social History [facility] Situation: [facility] Significant Relationships (family/friends): family and rastafarian Education: Vocation/Occupation: On disability Legal: no Other Social History: Has been living at a custodial facility, [facility] Screening Tobacco Screening Tobacco Use from ED Docu: Quit >30 days ago - If tobacco counseling indicated - the following topics are required. - #1 Recognizing dangerous situations. - #2 Coping Skills. - #3 Basic information about quitting. Status of Tobacco Cessation Counseling: Not Applicable Cessation Med Status Not Applicable Alcohol Screening - ETOH screen POS if BAL >=80 or Audit-C>= M4/F3 Audit-C Score from Diag Assess: 0 Blood Alcohol Level: Laboratory Tests 02/27 0925 Toxicology Serum Alcohol (<10 MG/DL) < 10.0 Alcohol Use Screening Results: Neg per Audit C &/or BAL - If ETOH counseling indicated - the following topics are required. - #1 Express concern about the patient's - drinking at unhealthy levels, include informing - of national norms for moderate drinking: - men <= 14 drinks/week, max 4 drinks/occasion - women <= 7 drinks/week, max 3 drinks/occasion - #2 Providing feedback, including linking alcohol to - negative physical effects (liver injury, hypertension) - negative emotional effects (relationship problems and - depression) - negative occupational consequences (reduced work - performance) - #3 Advising the patient to abstain from alcohol or - to drink below national norms for moderate drinking - (as listed above). Status of ETOH Use Counseling: N/A B/C NO ETOH Use Metabolic Screening - Screen if on a Neuroleptic Medication - Metabolic screening should include: - Blood Pressure, BMI, Glucose or Hgb A1c, & a - Lipid profile from within the past 365 days. Metabolic Screening Patient on a neuroleptic(s) . Lab Amylase 34 U/L 02/27/17 0925 Cholesterol 109 MG/DL 02/05/1745 Cholesterol/HDL Ratio 2.4 % 02/05/17644 Glucose 271 mg/dL H 02/27/17 0925 HDL Cholesterol 45 mg/dL 02/05/17644 Hemoglobin A1c 7.9 % H 02/05/17644 LDL Cholesterol, Calc 44 mg/dL L 02/05/17 06 Triglycerides 102 mg/dL 02/05/17644 BMI: Blood Pressure: 150/80 Laboratory Results From [facility] (If applicable): Exam and Plan Mental Status Examination Ambulation Status: The patient is fully more mobile and steady on his feet Appearance: Morbidly obese white male Attitude towards examiner: Calm friendly and cooperative Psychomotor activity: Reduced psychomotor activity Behavior: No abnormalities in behavior no bizarre behaviors Quality of speech: Reduce to quantity no pressure in his speech and he wasn't slurred Affect: Constricted affect Mood: Depressed Suicidal Ideation: Suicidal ideation as of this morning Homicidal Ideation: Denied homicidal ideation Hallucinations: Denied hallucinations Paranoid/Delusional Material: Denied feeling paranoid and there were no delusions during the interview Difficulties with thought organization: No difficulties with thought organization he was coherent Insight: Partial insight Judgment: Seemed to be chronically impaired Orientation: Oriented to time place and person Cognition: Seemed intact Memory Function: No impairment in short-term memory Estimate of intellectual functioning: Average Assets/Strengths Patient Identified Assets/Strengths: Patient seems to be likable Impression/Plan - Include all active medical diagnosis that require tx DSM 5 Diagnosis(es): Schizoaffective disorder morbid obesity diabetes mellitus hypothyroidism history of hypertension his current blood pressure readings are normal without hypertensive medication - Initial Tx Plan for Active Psych & Medical Conditions Treatment Plan: Inpatient psychiatric care with 15 minute observations Nursing staff will assist the patient's mental state and safety once a shift. Group therapy milieu therapy and activities therapy Social work to obtain collateral information and set up aftercare and discharge planning M.D. to see the patient every day for medication management and monitoring The patient did not want any changes in his current medication regimen Will be seen by the covering psychiatrist for the long weekend of New Year - Factors that would help patient function - in a less restrictive setting. Factors: Unclear
[2017-02-27 15:03] VITALS: BP 150/80
[2017-02-27 15:25] VITALS: BP 151/80
[2017-02-27 19:47] VITALS: BP 140/75
[2017-02-28 08:19] VITALS: BP 140/78
--- NOTE | 2017-02-28 11:21 | CP SOUTH PROGRESS NOTE PSYCH ---
Psych (Inpt) Progress Note Progress Note Include the following elements, when applicable: Involvement in the active treatment of the patient with behavioral observations of the patient and the patient's response to the treatment. Review of the ongoing treatment process in the context of the treatment plan. Indication of how multi-disciplinary staff members are carrying out the treatment plan. Plans for future interventions and recommendations for revision of the treatment plan. Liaison with other physicians/providers. Progress Note: Medication list reviewed. Case discussed with RN, who reports that the patient is in behavioral control. Affect is described as flat. Appearing somewhat withdrawn. Denying SI. FS was 174. Patient seen at 10:32 a.m. He is morbidly obese, bearded, dressed in pants and t-shirt. Reports that he came to the hospital because he was feeling really depressed, anxious and suicidal. States he just didn't want to live anymore, as it was just not worth it. Reports he has [facility] and doesn't like facing the plan of a residential. Stated "I guess beggars can't be choosers." Reports he was at a residential in [place] in the past. Affect is calm and depressed. Mood is good. Sad 2/10. Anxiety 3/10. Denies feeling hopeless now but did before. Denies feeling helpless or worthless. Feels guilty, thinking that returning to hospitals is "screwing up" transition plan for him to go to a residential. Denies active and passive SI, HI, AH, VH and PI. Sleep: good. Appetite: normal. Energy 6/10 on scale from 1-10 with 10 being best. Tolerating medications well, stating that he thinks they are working fine. IMPRESSION: Slow progress. Continue present treatment plan.
[2017-02-28 12:05] VITALS: BP 141/76
--- NOTE | 2017-02-28 13:24 | Cons- Medical ---
General Information and HPI Consulting Request Date of Consult: 02/28/17 Requested By: John Paul Moreno MD Reason for Consult: Medical H&P Source of Information: patient, old records History of Present Illness: 52-year-old male with morbid obesity, BMI of 66, diabetes, hypertension and schizoaffective disorder is here with suicidality and depressive symptoms. He denies any active medical issues. He has chronic back pain secondary to his obesity and limitation in mobility. He says that Dr. Santos has been talking about referring him for bariatric surgery. He denies any fever, chills, nausea, vomiting or diarrhea. Allergies/Medications Allergies: Coded Allergies: bupropion (From WELLBUTRIN) (Severe, UNKNOWN PER PT 04/29/16) haloperidol (From HALDOL) (UNKNOWN PER PT 04/29/16) lithium (?ALLERGY 04/29/16) Home Med List: Aripiprazole (Abilify) 30 MG TABLET 1 TAB PO QAM MOOD (Reported) Aspirin (Ecotrin*) 81 MG TABLET.DR 1 TAB PO DAILY HEART/BLOOD (Reported) Atorvastatin Calcium (Lipitor) 40 MG TABLET 1 TAB PO QPM CHOLESTEROL ( Reported) Cholecalciferol (Vitamin D3) (Vitamin D) 1,000 UNIT TABLET 4 TAB PO DAILY SUPPLEMENT (Reported) Divalproex Sodium (Divalproex Sodium ER) 500 MG TAB.ER.24H 2 TAB PO QHS MENTAL HEALTH (Reported) Famotidine (Pepcid) 20 MG TABLET 1 TAB PO Q12H GI (Reported) Levothyroxine Sodium 75 MCG TABLET 75 MCG PO DAILY AC THYROID (Reported) Metformin HCl 500 MG TABLET 1 TAB PO BID DM (Reported) Sertraline HCl (Zoloft) 100 MG TABLET 2 TAB PO QAM MENTAL HEALTH (Reported) Tamsulosin HCl (Flomax) 0.4 MG CAP.ER.24H 1 CAP PO QHS (Reported) Trazodone HCl 100 MG TABLET 1 TAB PO QHS MENTAL HEALTH (Reported) Current Medications: Current Medications Sig/Pramod Start time Last Medication Dose Route Stop Time Status Admin Acetaminophen 650 MG Q6P PRN 02/27 1315 AC PO Al Hydroxide/Mg 30 ML Q4-6 PRN PRN 02/27 1315 AC Hydroxide PO Aripiprazole 30 MG DAILY 02/28 1000 AC 02/28 PO 0838 Aspirin Buffered 81 MG DAILY 02/28 1000 AC 02/28 PO 0838 Atorvastatin Calcium 40 MG 1700 02/27 1700 AC 02/27 PO 1708 Cholecalciferol 1,000 IU DAILY 02/28 1000 AC 02/28 PO 0839 Divalproex Sodium 1,000 MG AT BEDTIME 02/27 2200 AC 02/27 PO 2146 Famotidine 20 MG BID 02/27 2200 AC 02/28 PO 0839 Levothyroxine Sodium 0.075 MG DAILY AC 02/28 0700 AC 02/28 PO 0721 Magnesium Hydroxide 30 ML AT BEDTIME NEED.. 02/27 1315 AC PO Metformin HCl 500 MG 0800,1700 02/27 1700 AC 02/28 PO 0838 Metoprolol Tartrate 25 MG BID 02/27 2200 AC 02/28 PO 0842 Multivitamins 1 TAB DAILY 02/27 1303 AC 02/28 PO 0839 Olanzapine 10 MG Q12P PRN 02/27 1330 AC IM Sertraline HCl 200 MG DAILY 02/28 1000 AC 02/28 PO 0839 Tamsulosin HCl 0.4 MG DAILY 02/28 1000 AC 02/28 PO 0838 Trazodone HCl 100 MG AT BEDTIME 02/27 2200 AC 02/27 PO 2146 Review of Systems Review of Systems Constitutional: Denies: no symptoms, chills, diaphoresis, fever. Cardiovascular: Denies: no symptoms, chest pain, edema, orthopena. Respiratory: Denies: no symptoms, cough, hemoptysis, orthopnea. GI: Denies: no symptoms, abdominal pain, bloating, constipation. All Other Systems: Reviewed and Negative Past History Travel History Traveled to [place] past 21 day No Medical History Neurological: migraine EENT: NO TEETH, NO DENTURES Cardiovascular: hypertension Respiratory: NONE Gastrointestinal: NONE, HEMERRHOIDS Hepatic: NONE Renal: NONE Musculoskeletal: ARTHRITIS HEEL SPUR Morbid Obesity Psychiatric: anxiety, chronic pain disorder, depression, insomnia, psychosis ( command auditory hallucination), schizo affective disorder, AVOIDANT PERSONALITY DIS Endocrine: hypothyroidism, PRE-DIABETIC (on Metformin for this) (on oral hypoglycemic regimen) Blood Disorders: NONE Cancer(s): 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 [facility] Primary Language: American Smoking Status: Never Smoked ETOH Use: denies use Illicit Drug Use: denies illicit drug use Functional Ability ADLs Independent: dressing, eating, toileting, bathing. Ambulation: independent IADLs Independent: shopping, housework, finances, food prep, telephone, transportation , medication admin. Exam & Diagnostic Data Last 24 Hrs of Vital Signs/I&O Vital Signs Date Time Temp Pulse Resp B/P B/P Pulse O2 O2 Flow FiO2 Mean Ox Delivery Rate 02/28 1205 81 141/76 02/28 0842 82 140/78 02/28 0838 82 140/78 02/28 0819 97.4 82 140/78 02/27 2146 96 140/75 02/27 1947 98.2 96 140/75 02/27 1525 98.0 92 151/80 02/27 1503 98.0 92 150/80 Physical Exam General Appearance: alert, awake, obese Head: atraumatic, normal appearance Eyes: Bilateral: normal appearance, PERRL, EOMI. Ears, Nose, Throat: normal pharynx, normal ENT inspection Neck: normal inspection, supple Respiratory: normal breath sounds, chest non-tender Cardiovascular: regular rate/rhythm Gastrointestinal: soft, non-tender Extremities: normal inspection, no edema Neurologic/Psych: no motor/sensory deficits, awake, alert, oriented x 3 Other Physical Findings: Patient has morbid obesity with a BMI of 66 which limits the physical exam. His mobility is limited and I couldn't assess his gait. His reflexes are 2+ and symmetric, gross motor and sensory appear intact. His cranial nerves III-12 appear intact. Last 24 Hrs of Labs/Oscar: Laboratory Tests 02/27 02/27 02/27 1020 1007 0925 Chemistry Sodium (137 - 145 mmol/L) 139 Potassium (3.5 - 5.1 mmol/L) 4.3 Chloride (98 - 107 mmol/L) 101 Carbon Dioxide (22 - 30 mmol/L) 22 Anion Gap (5 - 16) 16 BUN (9 - 20 mg/dL) 11 Creatinine (0.7 - 1.2 mg/dL) 0.6 L Estimated GFR (>60 ml/min) > 60 BUN/Creatinine Ratio (7 - 25 %) 18.3 Glucose (65 - 99 mg/dL) 271 H Calcium (8.4 - 10.2 mg/dL) 9.3 Total Bilirubin (0.2 - 1.3 mg/dL) 0.4 AST (17 - 59 U/L) 36 ALT (21 - 72 U/L) 38 Alkaline Phosphatase (< 127 U/L) 74 Total Protein (6.3 - 8.2 g/dL) 6.8 Albumin (3.5 - 5.0 g/dL) 3.8 Globulin (1.9 - 4.2 gm/dL) 3.0 Albumin/Globulin Ratio (1.1 - 2.2 %) 1.3 Amylase (30 - 110 U/L) 34 TSH &T3 &Free T4 Intrp (0.27 - 4.20 uIU/mL) 2.430 Hematology WBC (4.8 - 10.8 /CUMM) 9.3 RBC (4.70 - 6.10 /CUMM) 4.98 Hgb (14.0 - 18.0 G/DL) 13.9 L Hct (42 - 52 %) 41.8 L MCV (80.0 - 94.0 FL) 83.8 MCH (27.0 - 31.0 PG) 27.9 RDW (11.5 - 14.5 %) 14.3 Plt Count (130 - 400 /CUMM) 209 MPV (7.4 - 10.4 FL) 7.9 Gran % (42.2 - 75.2 %) 68.2 Lymphocytes % (20.5 - 51.1 %) 22.6 Monocytes % (1.7 - 9.3 %) 6.1 Eosinophils % (0 - 5 %) 2.8 Basophils % (0.0 - 2.0 %) 0.3 Absolute Granulocytes (1.4 - 6.5 /CUMM) 6.3 Absolute Lymphocytes (1.2 - 3.4 /CUMM) 2.1 Absolute Monocytes (0.10 - 0.60 /CUMM) 0.6 Absolute Eosinophils (0.0 - 0.7 /CUMM) 0.3 Absolute Basophils (0.0 - 0.2 /CUMM) 0 PUBS MCHC (33.0 - 37.0 G/DL) 33.3 Toxicology Urine Opiates Screen (>2000 NG/ML) < 100.00 Methadone Screen (>300 NG/ML) < 40 Barbiturate Screen (>200 NG/ML) < 60 Valproic Acid (50 - 120 ug/mL) 43.3 L Ur Phencyclidine Scrn (>25 NG/ML) < 6.00 Amphetamines Screen (>1000 NG/ML) < 100 U Benzodiazepines Scrn (>200 NG/ML) < 85 Urine Cocaine Screen (>300 NG/ML) < 50 Urine Cannabis Screen (>50 NG/ML) < 5.00 Serum Alcohol (<10 MG/DL) < 10.0 Assessment/Plan Assessment/Plan 52-year-old male past medical history of diabetes, hypertension, schizoaffective disorder and morbid obesity who is here with depression and suicidality. Treat her depressive symptoms as per psychiatry. Continue his metformin for his diabetes, his last hemoglobin A1c in January was 7.9. Continue his beta marvin and aspirin and statin. Outpatient referral to his PCP when he leaves an assessment for bariatric surgery. Problem List: 1. Hypothyroid 2. HTN (hypertension) 3. Diabetes 4. Schizoaffective disorder Copies To: Kapil Hector MD Consult Acknowledgment - Thank you for your consult request.
[2017-02-28 15:57] VITALS: BP 129/56
[2017-02-28 19:50] VITALS: BP 132/58
[2017-03-01 07:53] VITALS: BP 127/77
[2017-03-01 11:59] VITALS: BP 136/80
--- NOTE | 2017-03-01 14:44 | CP SOUTH PROGRESS NOTE PSYCH ---
Psych (Inpt) Progress Note Progress Note Include the following elements, when applicable: Involvement in the active treatment of the patient with behavioral observations of the patient and the patient's response to the treatment. Review of the ongoing treatment process in the context of the treatment plan. Indication of how multi-disciplinary staff members are carrying out the treatment plan. Plans for future interventions and recommendations for revision of the treatment plan. Liaison with other physicians/providers. Progress Note: Case discussed with RN, who reports that the patient is doing fine. Patient seen at 12:06 pm. Walks slowly. Feels great. Has no complaints. Asking about discharge. Affect is calm and blunted. Reports mood is good. Sad 03/11. Anxiety 03/11. Denies feeling hopeless, helpless, worthless or guilty. Denies SI, HI, AH, VH and PI. Reports he slept well. States appetite is normal. Energy is in the "middle." Tolerating medications well, without complaint. IMPRESSION: Slow progress. Continue present treatment plan.
[2017-03-01 16:20] VITALS: BP 104/79
[2017-03-01 19:56] VITALS: BP 108/54
[2017-03-02 07:43] VITALS: BP 164/78
[2017-03-02 07:51] VITALS: BP 164/78
--- NOTE | 2017-03-02 09:33 | SOCIAL WORKER SOCIAL HX PSYCH ---
Social History Basic Assessment Insurance Authorization: Insurance #1: Insurance name: MEDICARE A [employer] Phone number: Policy number: [id number] Group number: Authorization number: Curr Source of Income/Entitlements: SSDI Primary Care Physician: Patient's PCP: Kapil Hector MD PCP's Present Problem: SW met with the patient today and he presented alert, oriented, calm, cooperative and with euthymic mood. He states that "he is feeling very good." He states that he his no longer having suicidal ideations and does not feel helpless or hopeless anymore. He denies any current AH / VH / HI. He states that he would like to stay until Thursday and then be discharged back to [facility]. He also would like to get into some online courses and continue his education. The following is from his inital consultation, completed by this television script writer The patient is a 52 year old, single , conserved male presenting to the ED on a PEER from [facility], where he has been living. He reports worsening symptoms of depression and suicidal ideations. He states that he has been feeling helpless, hopeless, and worthless. He rates his depression a 10 out of 10, 10 being the most severe and his anxiety a 10 out of 10, 10 being the most severe. He has had a decrease in sleep, concentration and motivation to do things. He continues to endorse suicidal thoughts, however does not have a plan at this time. Per the records he has a history of making suicide attempts. He states that "everything," is stressful, noting "I cant' even drop a piece of paper on the floor without feeling like its a task." He states that his weight has been making everything difficult for him. He has a long history of mental health issues and has been treated at [place] (CPS at least 7 times), [facility], [facility] (01/31/2017) and [facility]. He is currently working with a psychologist and social workers at the [facility]. He has a history of hearing voices and having homicidal thoughts, however is denying both at this time. He believes that he needs to be inpatient. He is conserved by Connie Scratcher Priti Joiner ([phone]) and her office was notified that he will be admitted to [facility]. Primary Language? Albanian Language(s) Spoken At Home: Albanian Living Situation Other Living Arrangement: N/A Residential Care/Treatment Fac penitentiary ([facility]) Feel Safe Where You Are Living Yes Feel Safe in Relationships? Yes (Denies any current relationshi) Comments: N/A Allergies - Coded Allergies: bupropion (From WELLBUTRIN) (Severe, UNKNOWN PER PT 04/29/16) haloperidol (From HALDOL) (UNKNOWN PER PT 04/29/16) lithium (?ALLERGY 04/29/16) Current Medications - Scheduled Medications Aripiprazole (Abilify) 30 MG TABLET 1 TAB PO QAM MOOD (Reported) Entered as Reported by Sybil Chaudhry on 02/27/17 0921 Last Taken: 02/27/17 0900 Aspirin (Ecotrin*) 81 MG TABLET.DR 1 TAB PO DAILY HEART/BLOOD (Reported) Entered as Reported by Arianna Dennis on 06/19/15 173 Last Taken: 02/27/17 0900 Atorvastatin Calcium (Lipitor) 40 MG TABLET 1 TAB PO QPM CHOLESTEROL ( Reported) Entered as Reported by Arianna Dennis on 06/14/161851 Last Taken: 02/26/17 0900 Cholecalciferol (Vitamin D3) (Vitamin D) 1,000 UNIT TABLET 4 TAB PO DAILY SUPPLEMENT (Reported) Entered as Reported by Arianna Dennis on 06/14/161852 Last Taken: 02/27/17 0900 Divalproex Sodium (Divalproex Sodium ER) 500 MG TAB.ER.24H 2 TAB PO QHS MENTAL HEALTH #60 (Reported) Entered as Reported by Ronald Hill on 12/09/16 0818 Last Taken: 02/26/17 2200 Famotidine (Pepcid) 20 MG TABLET 1 TAB PO Q12H GI (Reported) Entered as Reported by Arianna Dennis on 06/19/15 174 Last Taken: 02/26/17 0900 Levothyroxine Sodium 75 MCG TABLET 75 MCG PO DAILY AC THYROID (Reported) Entered as Reported by Blayne Sanford on 04/29/162022 Last Taken: 02/26/17 0600 Metformin HCl 500 MG TABLET 1 TAB PO BID DM #180 (Reported) Entered as Reported by Arianna Dennis on 06/14/16 1851 Last Taken: 02/26/17 1700 Sertraline HCl (Zoloft) 100 MG TABLET 2 TAB PO QAM MENTAL HEALTH (Reported) Entered as Reported by Arianna Dennis on 01/15/17 1640 Last Taken: 02/26/17 0900 Tamsulosin HCl (Flomax) 0.4 MG CAP.ER.24H 1 CAP PO QHS (Reported) Entered as Reported by Blayne Sanford on 04/29/16 2026 Last Taken: 02/26/17 0900 Trazodone HCl 100 MG TABLET 1 TAB PO QHS MENTAL HEALTH #30 (Reported) Entered as Reported by Arianna Dennis on 01/15/17 1642 Last Taken: 02/26/17 0900 Consequences of Psych Med Use: N/A Comments: N/A Past History Past Medical History Neurological: migraine EENT: NO TEETH, NO DENTURES Cardiovascular: hypertension Respiratory: NONE Gastrointestinal: NONE, HEMERRHOIDS Hepatic: NONE Renal: NONE Musculoskeletal: ARTHRITIS HEEL SPUR Morbid Obesity Psychiatric: anxiety, chronic pain disorder, depression, insomnia, psychosis ( command auditory hallucination), schizo affective disorder, AVOIDANT PERSONALITY DIS Endocrine: hypothyroidism, PRE-DIABETIC (on Metformin for this) (on oral hypoglycemic regimen) Blood Disorders: NONE Cancer(s): NONE COOK BOX FILLER/Reproductive: NONE Past Surgical History Surgical History: non-contributory /Family History Place/Country of Origin: [place], [place] Childhood Family Constellation: Father, mother, sister, three brothers Primary Childhood Caretakers: father, mother Family Life During Childhood: "It was ok, it wasn't too bad. My father always made sure he put food on the table." DCF Involvement? No Mother's Age (Current/): 57 () Relationship w/Mother: Per History -Mother 57yo in 2000 from multiple surgeries hernia, had infection. He reports that he had a good relationship with his mother, prior to her passing , noting they were close. Father's Age (Current/): 78 Relationship w/Father: He states that he has a very close relationship with his father and that they both reside at [facility]. He states that his father recently had a stroke. Any Sibling(s)? Yes Sibling's Gender(s)/Age(s): male Sibling 1:, male Sibling 2:, male Sibling 3:, female Sibling 4: Relationship w/Sibling(s): He states that he has a good relationship with his sister and one of his brothers, noting they reside close to the penitentiary and they talk on the phone a lot. Relationship w/Friends: Per history he has 2 good friends, Adam and Orlando. Supportive gnosticism community Family Psych/Sub Abuse/Add Hx: None reported Other Comments: N/A Abuse/Trauma History Trauma History/Current Trauma: Denies Abuse/Trauma Treatment: N/A Legal History Legal Guardian/Address/Phone: Self Current Legal Status: none Pending Court Dates: N/A Have you ever been arrested Yes Number of Arrests: 2 Hx of Juvenile Legal Charges? Yes If Yes: He reports that at 14 or 15 he was arrested for stealing from a store. Hx of Adult Legal Charges? Yes If Yes: Destruction of property- per history List/Date Most Recent Lgl Chgs: 1990s - destruction of property Chgs/Dts/Incarcerations/Sentnc N/A Civil Proceedings: N/A Domestic Relations Court: N/A Child Protective Serv Involvmnt N/A [place] N/A Psychosocial History Primary Support System: father, sibling(s), friend Strengths/Capabilities: He has a conservator and is on social security disability. Weaknesses: He is overweight and states that it is limiting his functioning. Physical Limitations (Interventions): Morbid obesity Last Physical: Unknown History of Seizures? No History of Blackouts? No ADL Limitations: He states that they have been getting better since he has been on the unit. [place]/Social/Peer Relations The patient states that he has a supportive family. Meaningful Activities: "read, write and listen to music." Childhood Adventism: Religion, I am a spiritual person I believe in God, recently Baptised Radha, has been various religions. Current Pentecostal Affiliation: "Still searching." Is Spirituality Important to You? He reports being very spiritual Patient's Ethnicity: Serbian Cultural/Ethnic Issues: None noted Are There Developmental Issues? No Milestones Achieved: fine motor, gross motor Psychiatric Treatment History Psych Treatment Inpatient Treatment Yes Outpatient Treatment Yes Location of Treatment [facility] and [facility] Reason for Treatment Schizoaffective Disorder [facility] (2), Response to Treatment Unclear Precipitating Factors: Unclear Current Business Sales Consultant: He states that he is currently being treated by the psychologist at [facility], but normally he is connected to [facility] Treatment of Prior Episodes: [facility], [facility] [place] Diagnosis: Schizoaffective d/o, depressed type Psychodynamic Issues: N/A Risk Factors: high anxiety/distress, history of suicide atmpts, SA/MH hospitalized, male Substance Use/Abuse History Drug Use/Abuse First Use N/A Last Used N/A How much used/taken N/A How often N/A For how long N/A Route of use N/A Have Had Periods of Sobriety? Yes Explain: N/A Relapse History? No Explain: N/A Have You Ever Attended AA? No Do You Attend AA Currently? No Do You Have a Sponsor? No Other Community Resources Used: None noted Symptoms of Use: N/A Substance Abuse Treatment Substance Abuse Treatment Inpatient Treatment No Outpatient Treatment No Location of Treatment N/A Reason for Treatment N/A Dates of Treatment N/A Response to Treatment N/A Comments: N/A Sexual History Sexual Concerns: None noted Education History Highest Level of Education: high school/GED Highest Grade Completed: 12 Vocational Year Completed: N/A College Degree/Major: " A little bit of college." Other Degree(s): N/A Preferred Learning Style: He states that he learns best when he is instructed on how to do something. HX of Learning Difficulties: None reported Barriers to Learning: None reported Special Communication Needs: None reported Employment History Employment Disability (Since 1998) Not in Labor Force: Disabled (Since 1998) Vocation/Occupational Hx: Disabled since 1998 No. of Jobs in Last 5 Years: 0 Attendance: N/A Comments: Disabled since 1998 History Have You Been in The ? No (Pt. denies) If Yes, Explain: N/A Type of Discharge: N/A Date of Discharge: N/A Current Mental Status Mental Status Orientation: Person, Place, Situation Affect: Appropriate, Euphoric Speech: WNL Neuro-vegetative: WNL Appearance Appearance- Dress/Hygiene: The patient was dressed in his own attire, sitting in a chair, with good participation in the evaluation. Behaviors Thought Process: WNL Thought Content: WNL, The patient reports that he does have a history of hearing voices, however is not hearing them now. Memory: WNL Insight: WNL SI/HI Risk Assessment Past Suicidal Ideation/Attempts Yes (3 previous attempts) Current Suicidal Ideation/Att No Past Homicidal Ideation/Att: Yes Current Homicidal Ideation/Attempts No Degree of Intent: None Danger To: N/A Risk Factors: SA/MH Hospitalization(s), Male Lethality Ratin - Conclusion and Recommendations for treatment - and discharge planning Summary: The patient will continue to participate in his treatment plan. He would like to be discharged back to [facility] and to get back into some college courses online.
[2017-03-02 12:09] VITALS: BP 170/92
--- NOTE | 2017-03-02 12:59 | CP SOUTH PROGRESS NOTE PSYCH ---
Psych (Inpt) Progress Note Progress Note Include the following elements, when applicable: Involvement in the active treatment of the patient with behavioral observations of the patient and the patient's response to the treatment. Review of the ongoing treatment process in the context of the treatment plan. Indication of how multi-disciplinary staff members are carrying out the treatment plan. Plans for future interventions and recommendations for revision of the treatment plan. Liaison with other physicians/providers. Progress Note: The patient was seen for medication management follow-up. He is in [facility] for exacerbation of symptoms of schizoaffective disorder. We discussed the patient with the nursing staff, reviewed the inpatient progress notes and interviewed the patient. It was brought to our attention that the patient's Depakote level was low Lab Valproic Acid 35.6 ug/mL L 03/02/17 0625 This is even lower than when he came in. The patient is an obese male, dressed in a training suit, with food crumbs on his shirt and pants. He has difficulty breathing. He is morbidly obese. He walks slow. His speech is soft, slow, well articulated and goal directed. The patient reports having mood swings. He says he fluctuates between feeling "good" and "bad". He reports this is bothersome to him on a scale 0-10, with 10 being the worst he rates being bothered by the mood swings as a 9. He reports feeling currently depressed, denies suicidal/homicidal ideation. There is no overt psychosis. He denies auditory/visual hallucinations. He reports increased anxiety relative to discharge and his living situation. He is worried that [facility] will not accept him back, therefore he would be homeless. The patient wants to get into a skilled nursing but has difficulty because of past history of being aggressive and threatening to the skilled nursing staff. The patient currently states, and also believes, that he would never hurt himself or anybody else. We discussed with Chon about the low Depakote level and how reaching a therapeutic level might improve his mood stability. He agreed to have the Depakote increased to 1500 mg at bedtime. Depakote level will be repeated in 5 days after taking it consistently at the increased dose. Chon reports fitful sleep, dozing throughout the day, feeling fatigued. He says he was referred for a sleep study but never had the opportunity to have it done because of being in and out of the hospital. The patient agreed to continue the medication as is with the increased Depakote. He will continue to participate in the activities on the unit. He will continue to participate in his discharge planning with the treatment team on [facility]. Discharge plan is to return to [facility] and continue medication management follow-up with [facility] or [facility] (they were his most recent outpatient treaters). He will be followed up daily by the regular psychiatrist on the unit. The nursing staff will continue to observe and assess the patient daily for safety, suicidal and homicidal ideation, psychosis.
[2017-03-02 14:57] VITALS: BP 136/74
[2017-03-02 19:51] VITALS: BP 132/86
[2017-03-03 07:41] VITALS: BP 122/71
[2017-03-03 12:22] VITALS: BP 125/76
--- NOTE | 2017-03-03 15:07 | SOCIAL WORKER PROG NOTE PSYCH ---
Social Work Progress Note Progress Note Called Web Designer Priti Joiner's office and spoke with Clint. Requested that a conservator decree be faxed to our office. Spoke with Chon who shared he [facility] [place] [facility] living at last Summer. Since that time he has been placed at [facility] in [place]. He said they have been trying to assist him with finding another placement from there. He reports they are looking into group homes or assisted living. He reports liking [facility] and states he would stay there watermaster, but doesn't know if that is an option. He is fearful of them not wanting him there. Mostly due to the fact that he has been in and out of the hospital several times in the last few months. He reports on going depression and SI. Stating he feels hopeless and says things like "what's the point." He feels like his emotional problems will follow him wherever he goes. I told him that is likely, but environment can be helpful in helping him with those things. Encouraged him to look at some of the positive things about moving into a new place. He gets anxious around crowds of people and new places. He is having a hard time with not knowing what is going to be happening with his life. The uncertainity is causing alot of stress. He stated his Dad is also residing at [facility] and he often visits daily. He feels alot of pressure to visit him and doesn't care to see him so often. Dad is just recovering from a stroke. Chon denies SI/HI today. When asked about voices? He said he has alot of screaming and yelling at people in his head, but he thinks it is him. Called Priti Joiner's office again and spoke with Tracee. Tracee was able to fax the conservatorship decree and a signed release for [facility].
[2017-03-03 15:52] VITALS: BP 137/86
--- NOTE | 2017-03-03 16:21 | CP SOUTH PROGRESS NOTE PSYCH ---
Psych (Inpt) Progress Note Progress Note The patient was seen for medication management follow-up. He is in [facility] for exacerbation of symptoms of schizoaffective disorder. I reviewed Dr. North's note from yesterday. Mental Status Examination: An obese male with reduced psychomotor activity/walks slow. His speech is soft, slow, and coherent. The patient reports feeling depressed with mild improvement, denies suicidal/homicidal ideation. There is no overt psychosis. He denies auditory/visual hallucinations. He reports anxiety relative to discharge and his living situation. He is worried that [facility] will not accept him back, therefore he would be homeless. The patient wants to get into a fpc but has difficulty because of past history of being aggressive and threatening to the fpc staff. Chon reports fitful sleep, dozing throughout the day, feeling fatigued. DSM 5 Diagnosis(es): Schizoaffective disorder morbid obesity diabetes mellitus hypothyroidism history of hypertension his current blood pressure readings are normal without hypertensive medication Treatment Plan: Reduce Abilify to 20 mg daily Continue Depakote as the same dose (increased yesterday) Continue Inpatient psychiatric care with 15 minute observations Continue Group therapy milieu therapy and activities therapy He will continue to participate in the activities on the unit. He will continue to participate in his discharge planning with the treatment team on [facility]. He will be followed up daily by the regular psychiatrist on the unit. The nursing staff will continue to observe and assess the patient daily for safety, suicidal and homicidal ideation, psychosis. homeless. The patient wants to get into a fpc but has difficulty because of past history of being aggressive and threatening to the fpc staff. The patient currently states, and also believes, that he would never hurt himself or anybody else. We discussed with Chon about the low Depakote level and how reaching a therapeutic level might improve his mood stability. He agreed to have the Depakote increased to 1500 mg at bedtime. Depakote level will be repeated in 5 days after taking it consistently at the increased dose. Chon reports fitful sleep, dozing throughout the day, feeling fatigued. He says he was referred for a sleep study but never had the opportunity to have it done because of being in and out of the hospital. The patient agreed to continue the medication as is with the increased Depakote. He will continue to participate in the activities on the unit. He will continue to participate in his discharge planning with the treatment team on [facility]. Discharge plan is to return to [facility] and continue medication management follow-up with [facility] or [facility] (they were his most recent outpatient treaters). He will be followed up daily by the regular psychiatrist on the unit. The nursing staff will continue to observe and assess the patient daily for safety, suicidal and homicidal ideation, psychosis.
[2017-03-03 19:41] VITALS: BP 137/82
[2017-03-04 07:37] VITALS: BP 136/80
--- NOTE | 2017-03-04 09:10 | SOCIAL WORKER PROG NOTE PSYCH ---
Social Work Progress Note Progress Note Called [facility] and spoke with Wendy Kenyon (unit monitor). She shared that Chon has been exhibiting a pattern of emotional problems with SI, with about 7 admissions to various hospitals in the past several months. She said Chon is there for terminal manager care, but he will jeopardize his placement there eventually if this pattern doesn't stop. They feel he may need more psychiatric care. She said they were trying to get him into a nursing home, but all the groups homes have refused to take him. She said he keeps talking about wanting to get into [facility]. She stated that Chon has not been aggressive there, but his SI becomes an issue as they often have to put him on one to one. She also shared that Chon's Father is getting hospice care and he is not aware of what is really going on. I told her that Judson feels alot of pressure to visit him daily, which bothers him. He would prefer to not see him on a daily basis. Let her know we would keep them posted on discharge plans. Chon's mood seems a little better today. He was pleased to hear that [facility] was taking him back and that he can possibly stay there fpc. I clearly told him that their concern is around the amount of hospitalizations that he has had and that if he continues this pattern they may feel he needs more psychiatric care. He stated he was going to work on that. He feels grateful that he has a place to stay and doesn't want to jeopardize it. He feels more hopeful and optimistic today. Would like to be discharged by Thursday. He would like me to confirm he can stay there with their professor of social work Krystal.
--- NOTE | 2017-03-04 10:29 | SOCIAL WORKER PROG NOTE PSYCH ---
Social Work Progress Note Progress Note Completed [facility] online review today. Check web to see when next review date needs to be completed.
--- NOTE | 2017-03-04 11:06 | CP SOUTH PROGRESS NOTE PSYCH ---
Psych (Inpt) Progress Note Progress Note Chon's care was discussed in multidisciplinary treatment team meeting Mental Status Examination: Chon showed reduced psychomotor activity, reduced speech production, soft and slow. Chon was coherent. The patient reports feeling depressed with mild improvement, denied suicidal/homicidal ideation. There is no overt psychosis. He denied hallucinations. He reported that his anxiety is mild and manageable. He prefers to go back to [facility] Chon reports fitful sleep, dozing throughout the day, feeling fatigued. Diagnosis(es): Schizoaffective disorder by history morbid obesity diabetes mellitus hypothyroidism history of hypertension his current blood pressure readings are normal without hypertensive medication Treatment Plan update: Continue Abilify 20 mg daily Continue Depakote as the same dose (increased yesterday) Continue Inpatient psychiatric care with 15 minute observations Continue Group therapy milieu therapy and activities therapy The nursing staff will continue to observe and assess the patient daily for safety, suicidal and homicidal ideation, psychosis.
[2017-03-04 11:52] VITALS: BP 136/79
--- NOTE | 2017-03-04 15:42 | IP INCIDENTAL NOTE PSYCH ---
Incidental Note Notation: I called conservator Priti Joiner's office, got voice mail, left a message with the med changes and my name and the unit's phone number
[2017-03-04 16:10] VITALS: BP 136/72
[2017-03-04 20:02] VITALS: BP 129/82
[2017-03-05 07:58] VITALS: BP 143/78
--- NOTE | 2017-03-05 10:47 | CP SOUTH PROGRESS NOTE PSYCH ---
Psych (Inpt) Progress Note Progress Note Chon's treatment, progress, and discharge plans were discussed in the multidisciplinary treatment team meeting Mental Status Examination: Chon was alert and oriented to time, place, and person. He showed reduced psychomotor activity and no abnormal movements. His speech was soft and slow. Chon was coherent: no thoughts disorder. He reported feeling less depressed ( mild improvement), and he denied feeling hopeless or worthless. He denied suicidal thoughts and denied violent or homicidal ideation. Chon denied hallucinations. He reported that his anxiety is mild and manageable. [facility] He feels ready for discharge tomorrow. Assessment: Chon is a 52-year-old white male who's been making steady progress since his admission. His diagnoses are thoughts to be: 1) Schizoaffective disorder by history morbid obesity diabetes mellitus hypothyroidism Treatment Plan update: Continue Abilify 20 mg daily Continue Depakote as the same dose (increased yesterday) Continue Inpatient psychiatric care with 15 minute observations Continue Group therapy milieu therapy and activities therapy The nursing staff will continue to observe and assess the patient daily
[2017-03-05 12:22] VITALS: BP 138/92
--- NOTE | 2017-03-05 13:36 | SOCIAL WORKER PROG NOTE PSYCH ---
Social Work Progress Note Progress Note Called [facility] and spoke with Bang (Judson's nurse). Informed her that Chon will discharge tomorrow. Updated her on current mental status and behavior. 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 I told her he is happy with his placement there and doesn't want to lose it. It is an adjustment in spending money, which he is getting used to. Called [employer] Rhys's office and left a message on Tracee's voicemail regarding discharge for Chon tomorrow. Chon reports he is feeling positive. Participated in groups today. Looking forward to discharge tomorrow. He still seems concerned about being able to stay at [facility] jail. He wants to contact a social media marketing specialist at [facility] to discuss it with her.
[2017-03-05 16:13] VITALS: BP 139/91
[2017-03-05 19:53] VITALS: BP 141/77
[2017-03-06 08:09] VITALS: BP 144/96
[2017-03-06] MEDS ORDERED: METOPROLOL TART25 M1 PO (08:09)
[2017-03-06] MEDS ORDERED: ABILIFY10 M1 PO (08:09)
[2017-03-06] MEDS ORDERED: DIVALPROEX SOD500 M2 PO (08:09)
--- NOTE | 2017-03-06 08:42 | CP SOUTH PROGRESS NOTE PSYCH ---
Psych (Inpt) Progress Note Progress Note The multidisciplinary treatment team met this morning and discussed Chon's treatment, progress, and discharge plans. Mental Status Examination: Chon was alert and oriented to time, place, and person. He continues to show reduced psychomotor activity. His speech was soft and slow. Chon was coherent/ no thought disorder. He reported that he feels ready for discharge. Although still feeling down, he did experience improvement in mood over the course of his CPS stay. He denied feeling hopeless or worthless, and denied wishing or thinking of suicide. Chon denied violent thoughts or thoughts of homicide. Chon denied hallucinations. He reported that his anxiety has been mild and manageable. [facility] Assessment: Chon is a 52-year-old White male who presented to -ED on 02/27/2017 feeling depressed, hopeless, worthless, anxious, and stated he was thinking about suicide. Chon made slow but steady progress since his admission. His diagnoses are thought to be: 1) Schizoaffective disorder by history, and 2) Other specified personality disorder (mixed traits) Treatment Plan update: Discharge back to [facility]
--- NOTE | 2017-03-06 09:05 | DISCHARGE SUMMARY REPORT-PSYCH ---
Visit Information Visit Dates/Diagnosis' Admission Date: 02/27/17 Discharge Date: 03/06/17 Reason for Admission: The patient was admitted after he was brought into the emergency department on a police examination request from the intermediate facility, [facility] for reporting increasing depression and hopelessness, worthlessness, and thinking about suicide. Psy Discharge Primary Diag: Schizoaffective Disorder Psy Discharge Secondary Diag: Personality Disorder Hospital Course Significant Lab Findings: On on February 27 the patient's hemoglobin was slightly low at 13.9 and his hematocrit was 41.8 His creatinine was 0.6 his estimated GFR was more than 60 And his glucose was 271 His valproic acid blood level I on March 02 was 35.6 and his dose was adjusted and it is too soon to be tested before his discharge today but that would be and the recommendation for the next few days. his liver function tests were within normal Course Complications: There were no complications while the patient was on Inpatient Psychiatry Consultations: The patient had a history and physical examination on 02/28/[address] Owens Head impression was that the patient has the following medical issues: Hypothyroidism, hypertension, diabetes mellitus type 2, as well as schizoaffective disorder. Dr. Owens suggested that he continues his current medications for thyroid hypertension and diabetes and to follow up with his primary care physician for assessment for bariatric surgery. The patient will be returning to a intermediate facility following his discharge from the inpatient psychiatric unit. Allergies: Coded Allergies: bupropion (From WELLBUTRIN) (Severe, UNKNOWN PER PT 04/29/16) haloperidol (From HALDOL) (UNKNOWN PER PT 04/29/16) lithium (?ALLERGY 04/29/16) Hospital Course/TX Response: Chon presented to the emergency room on 1228 and it was determined that he needed inpatient psychiatric care. On the inpatient psychiatric unit he was calm and cooperative. He took the medications as prescribed. There were no periods of agitation or violence. The patient showed slow but steady progress over the relatively short period of time he was on the inpatient unit During his stay his Depakote level was adjusted up a cause a subtherapeutic blood level the adjustment was made on March 02 the patient would not be due for for blood work for another day or 2 and this will be done as an outpatient. I also discussed with the patient his previous medication trials and his current dose of Abilify including the benefits as well as the side effects that he has noticed. I suggested that to him that we can pull back on the dose from 30 mg to 20 mg he was nervous about this and the first day and then he reported that he will think about it the day after he was comfortable with the reduction and his Abilify dose was in fact reduced from 30 mg to 20 mg. The patient's weight seems to pose a significant health hazard and I believe the weight gain associated with psychotropic medication should be taken into consideration as well as other avenues to help him with weight loss. The patient was denying suicidal ideation for several days before the decision was made to discharge him on 03/06/2017. The patient reported that he has preferred discharge plan would be back to [facility] as opposed to a detention. During his stay at Inpatient Psychiatry I left a voicemail with his deputy prosecuting attorney/ conservator updating her on the 2 changes that were made in his medication, namely increasing the Depakote and reducing the Abilify. The patient's mental status at the day of discharge was as follows: Mental Status Examination: Chon was alert and oriented to time, place, and person. He continues to show reduced psychomotor activity. His speech was soft and slow. Chon was coherent/ no thought disorder. He reported that he feels ready for discharge. Although still feeling down, he did experience improvement in mood over the course of his CPS stay. He denied feeling hopeless or worthless, and denied wishing or thinking of suicide. Chon denied violent thoughts or thoughts of homicide. Chon denied hallucinations. He reported that his anxiety has been mild and manageable. [facility] Assessment: Chon is a 52-year-old White male who presented to -ED on 02/27/2017 feeling depressed, hopeless, worthless, anxious, and stated he was thinking about suicide. hCon made slow but steady progress since his admission. His diagnoses are thought to be: 1) Schizoaffective disorder by history, and 2) Other specified personality disorder (mixed traits) Treatment Plan update: Discharge back to [facility] Please see the patient's list of discharge medications down below Discharge HBIPS - Tobacco Use Treatment Offered Post DC Medications Offered: Not Applicable Post DC Tobacco Treatment Plan: Not Applicable - EtOH/Drug Use D/O Treatment Offered Post DC Medications Offered: NA-No EtOH/Drug Use D/O Post DC EtOH/SubAbuse [place] Plan: NA-No EtOH/Drug Use D/O Metabolic Screening - Screen if on a Neuroleptic Medication - Metabolic screening should include: - Blood Pressure, BMI, Glucose or Hgb A1c, & a - Lipid profile from within the past 365 days. Discharge Instructions General Discharge Information Multiple Neuroleptics: ([X]) Not Applicable OR Document below three failed attempts at monotherapy, or a plan to taper to monotherapy, or augmentation of Clozapine. () Discharge Diet Diabetic Discharge Activity Normal DC Disposition: to [facility] /SNF Referrals Ordered Referrals Provider Referral 03/06/17 For Groups: [[facility]] [facility] 03/06/[address] [place] [address]. [place], [place] [phone] Prescriptions Stop taking the following medications: Divalproex Sodium (Divalproex Sodium ER) 500 MG TAB.ER.24H ORAL TAKE AT BEDTIME Qty = 60 Aripiprazole (Abilify) 30 MG TABLET ORAL Every Morning Continue taking these medications: Aspirin (Ecotrin*) 81 MG TABLET.DR 1 Tablet ORAL DAILY Comments: Last Taken:06/23/16 Time:8am Famotidine (Pepcid) 20 MG TABLET 1 Tablet ORAL Q12H Comments: Last Taken:06/23/16 Time:8am Levothyroxine Sodium (Levothyroxine Sodium) 75 MCG TABLET 75 Microgram ORAL DAILY BEFORE BREAKFAST Comments: Last Taken:06/23/16 Time:7am Tamsulosin HCl (Flomax) 0.4 MG CAP.ER.24H 1 Capsule ORAL TAKE AT BEDTIME Comments: Last Taken:06/23/16 Time:8am Metformin HCl (Metformin HCl) 500 MG TABLET 1 Tablet ORAL TWICE DAILY Qty = 180 Comments: Last Taken:06/23/16 Time:8am Atorvastatin Calcium (Lipitor) 40 MG TABLET 1 Tablet ORAL Every night Comments: Last Taken:06/22/16 Time:10pm Cholecalciferol (Vitamin D3) (Vitamin D) 1,000 UNIT TABLET 4 Tablet ORAL DAILY Sertraline HCl (Zoloft) 100 MG TABLET 2 Tablet ORAL Every Morning Trazodone HCl (Trazodone HCl) 100 MG TABLET 1 Tablet ORAL TAKE AT BEDTIME Qty = 30 Start taking the following new medications: Metoprolol Tartrate (Metoprolol Tartrate) 25 MG TABLET 25 Milligram ORAL TWICE DAILY Qty = 60 No Refills Divalproex Sodium (Divalproex Sodium) 500 MG TABLET.DR 1,500 Milligram ORAL AT BEDTIME Qty = 90 No Refills Aripiprazole (Abilify) 10 MG TABLET 20 Milligram ORAL DAILY Qty = 30 No Refills Copies To: [facility]
[2017-03-06 12:11] VITALS: BP 139/95
--- NOTE | 2017-03-06 13:14 | SOCIAL WORKER PROG NOTE PSYCH ---
Social Work Progress Note Progress Note Chon is discharging today to [facility]. Was happy to be leaving and in good spirits. 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
--- NOTE | 2017-03-06 13:34 | SOCIAL WORKER PROG NOTE PSYCH ---
Social Work Progress Note Faxed Referral(s) Referred To: [facility] Transition of Care Documents sent: Health Summary, W10 Faxed to: [facility] Fax #: [phone] Faxed by: Mary Johnson Date faxed: 03/06/17 Time Faxed: [phone]
== END 2017-03-06 15:50 | DRG 885 ==
LOC: ERH 09:08 → CP SOUTH 14:01 → ERHI 14:01 → ENTRNSPT 14:10 → EDTRNSPT 14:38 → EDTRNSPTSTS 14:38 → EDTRNSPT 14:53 → CP SOUTH 14:53 → CMPTRNSPT 14:54 → ENRESERV 23:59 → CP SOUTH 03-03 10:26
PROVIDERS: Physician Assistant Medical
DX: F25.9 Schizoaffective disorder, unspecified (principal)
CPT/HCPCS: 36415; 80307; G0480; J0401; J3490